=== PATIENT | female | born 1965 | race Caucasian/White ===

== ENCOUNTER → 2018-01-02 11:48 | Outpatient (CLI) | payer OTHER, SELFPAY ==
--- NOTE | 2018-01-02 | DI.MG.S_ITS ---
BILATERAL DIGITAL SCREENING MAMMOGRAM 3D/2D WITH CAD: 01/02/2018 CLINICAL: Routine screening. Comparison is made to exams dated: 12/29/2015 mammogram, 11/26/2012 mammogram, and 11/30/2008 mammogram - [facility]. The tissue of both breasts is predominantly fatty. Current study was also evaluated with a Computer Aided Detection (CAD) system. No significant masses, calcifications, or other findings are seen in either breast. There has been no significant interval change. IMPRESSION: NEGATIVE There is no mammographic evidence of malignancy. A 1 year screening mammogram is recommended. This exam was interpreted at Station ID: [id number]. NOTE: For mammograms, a report in lay terms will be sent to the patient. Approximately 15% of breast malignancies will not be visualized mammographically. In the management of a palpable breast mass, a negative mammogram must not discourage biopsy of a clinically suspicious lesion. Electronically Signed By: Anthony metz/wild:01/02/2018 15:58:09 letter sent: Normal Exam ACR BI-RADS Category 1: Negative [id number]
== END ==
PROVIDERS: PCP Physician Assistant; Visit Provider Physician Assistant
DX: Z12.31 Encounter for screening mammogram for malignant neoplasm of breast (principal)
CPT/HCPCS: 77063; 77067

== ENCOUNTER 2018-01-14 09:33 | Emergency (ER) | payer OTHER, SELFPAY ==
[2018-01-14 09:35] VITALS: BP 157/72; PULSE 84; RESP 20; TEMP 36.4; O2SAT 99; BMI 53.0
--- NOTE | 2018-01-14 09:58 | DI.RAD.S_ITS ---
PROCEDURE: XR CHEST 1V INDICATIONS: chest pain, palpitations TECHNIQUE: One view of the chest was acquired. COMPARISON: None. FINDINGS: Surgical changes and devices: None. Lungs and pleura: No pleural effusions or pneumothorax. Lungs are clear. Mediastinum: Mediastinal contours appear normal. Heart size is normal. Bones and chest wall: No suspicious bony lesions. Overlying soft tissues appear unremarkable. IMPRESSION: No acute cardiopulmonary abnormality Dictated by: Fidel Villa M.D. on 01/14/2018 at 10:24 Approved by: Fidel Villa M.D. on 01/14/2018 at 10:25
--- NOTE | 2018-01-14 10:05 | DI.CT.S_ITS ---
PROCEDURE: CT HEAD/BRAIN WO CON INDICATIONS: CONDE, blurry vision, leg numbness bilateral TECHNIQUE: Noncontrast 4.5 mm thick angled axial sections acquired from the foramen magnum to the vertex, with coronal and sagittal reformats. For radiation dose reduction, the following was used: automated exposure control, adjustment of mA and/or kV according to patient size. COMPARISON: None. FINDINGS: Image quality: Excellent. CSF spaces: Basal cisterns are patent. No extra-axial fluid collections. Ventricles are normal in size and shape. Brain: No midline shift. No intracranial masses or hemorrhage. Ordoñez-white matter interface is normal. Skull and face: Calvarium and visualized facial bones are intact, without suspicious lesions. Sinuses: Visualized sinuses and mastoids are clear. IMPRESSION: Normal CT brain scan Dictated by: Fidel Villa M.D. on 01/14/2018 at 10:25 Approved by: Fidel Villa M.D. on 01/14/2018 at 10:26
[2018-01-14 10:16] LABS: Add Manual Diff / Slide Review NO; Basophils Percent Auto 0.6 % (0-2); Eosinophils Percent Auto 1.5 % (2-4); Hematocrit 45.4 % (36-46); Hemoglobin 15.2 g/dL (12.0-16.0); Lymphocytes Percent Auto 32.9 % (25-40); Mean Corpuscular HGB Conc 33.5 % (30-36); Mean Corpuscular Volume 83.4 fL (80-100); Monocytes Percent Auto 5.9 % (3-14); Neutrophils Absolute Auto 4000 /uL (3000-5900); Neutrophils Percent Auto 59.1 % (50-75); Platelet Count 226 X10^3/uL (150-400); Red Blood Cell Count 5.44 X10^6/uL (4.0-5.2); Red Cell Distribution Width 13.5 % (11.6-14.8); White Blood Cell Count 6.7 X10^3/uL (4.5-11.0)
[2018-01-14 10:18] LABS: Alanine Aminotransferase 65 IU/L (9-52); Albumin 4.3 g/dL (3.5-5.0); Albumin Globulin Ratio 1.3 (1.0-2.8); Alkaline Phosphatase 65 U/L (38-126); Aspartate Aminotransferase 47 IU/L (14-36); BUN Creatinine Ratio 26.7 (6-22); Bilirubin Total 0.7 mg/dL (0.2-1.3); Blood Urea Nitrogen 16 mg/dL (7-17); Calcium 9.3 mg/dL (8.4-10.2); Carbon Dioxide 28 mmol/L (22-32); Chloride 101 mmol/L (98-107); Creatine Kinase 60 U/L (30-135); Estimated Glomerular Filt Rate > 60.0 mL/min (>60); Globulin 3.2 g/dL (1.7-4.1); Glucose 103 mg/dL (70-100); HEMOLYSIS 16 (0-50); Lipase 177 U/L (23-300); Sodium 139 mmol/L (137-145); Total Protein 7.5 g/dL (6.3-8.2)
[2018-01-14] MEDS: ASPIRIN 81 MG TAB 324 MG PO (10:24)
[2018-01-14] MEDS: SODIUM CHLORIDE 0.9% 1,000 ML 1000 ML IV ×2 (10:24→12:29)
[2018-01-14] MEDS: METOCLOPRAMIDE 10 MG/2 ML INJ IV (10:24)
[2018-01-14 10:29] VITALS: BP 156/81; PULSE 75; RESP 14; O2SAT 99
[2018-01-14 10:30] VITALS: BP 149/61; PULSE 68; RESP 12; O2SAT 94
[2018-01-14 10:32] LABS: Troponin I < 0.012 ng/mL (0.01-0.034)
[2018-01-14 10:44] LABS: Free T4, Direct Thyroxine 1.67 ng/dL (0.78-2.19)
[2018-01-14 11:00] VITALS: BP 134/75; PULSE 74; RESP 19; O2SAT 94
[2018-01-14] MEDS: DEXAMETHASONE 10 MG/ML VIAL IV (11:25)
[2018-01-14] MEDS: KETOROLAC 60 MG/2 ML VIAL 10 MG IV (11:25)
[2018-01-14] MEDS: ONDANSETRON 4 MG/2 ML INJ IV (11:30)
[2018-01-14 12:00] VITALS: BP 119/65; PULSE 69; O2SAT 97
[2018-01-14 13:22] VITALS: BP 145/75; PULSE 77; RESP 18; O2SAT 98
--- NOTE | 2018-01-14 20:02 | ED_ITS ---
HPI - Chest Pain General Chief Complaint: Chest Pain Stated Complaint: HEADACHE/HEART PROBLEMS Time Seen by Provider: 01/14/18 09:36 Source: patient and family Mode of arrival: ambulatory Limitations: no limitations History of Present Illness HPI narrative: Patient with history of migraines, hypothyroid, hypertension, hyperlipidemia presents to the emergency department today with a chief complaint of severe headache for the past few days along with diarrhea and occasional palpitations. She denies recent long distance travel, use of antibiotics, or exposure to ill persons. She denies chest pain or shortness of breath. She denies dizziness or lightheadedness. She states bright lights and loud noises make her head worse. She denies focal neurologic findings such as numbness, tingling or weakness MD complaint: other Onset (ago): day(s) Duration: intermittent Associated symptoms: nausea Related Data Home Medications Medication Instructions Recorded Confirmed aspirin 81 mg PO DAILY #0 04/02/11 01/14/18 naproxen sodium [Aleve] 220 mg PO Q8-12H PRN 01/14/18 01/14/18 Previous Rx's Medication Instructions Recorded ketorolac 0.5 % eye drops 1 drop EYE-LEFT QID #5 ml 12/19/17 levothyroxine 175 mcg tablet 175 mcg PO DAILY #45 tab 12/19/17 ondansetron [Zofran ODT] 4 mg PO Q6H PRN #14 tab 01/14/18 Allergies Allergy/AdvReac Type Severity Reaction Status Date / Time adhesive Allergy Severe HIVES Verified 01/14/18 09:46 bacitracin Allergy Severe Hives/ Rash Verified 01/14/18 09:46 latex Allergy Severe HIVES Verified 01/14/18 09:46 neomycin Allergy Severe Hives/ Rash Verified 01/14/18 09:46 polymyxin B Allergy Severe Hives/ Rash Verified 01/14/18 09:46 shellfish derived Allergy Mild ITCHING Verified 01/14/18 09:46 ALL OVER BODY Review of Systems Review of Systems All systems reviewed & are unremarkable except as noted in HPI and below Constitutional Denies chills, Denies fever(s), Reports headache(s), Denies lethargy and Denies weakness Eyes Denies change in vision, Denies eye discharge, Denies irritation and Denies loss of vision ENT Ears, Nose, Mouth, and Throat: Denies change in voice, Reports headache(s), Denies neck pain and Denies sore throat Cardiovascular Denies chest pain, Reports irregular heart rhythm, Denies lightheadedness, Denies palpitations, Denies dyspnea, Denies dyspnea on exertion and Denies orthopnea Respiratory Denies cough, Denies dyspnea, Denies dyspnea on exertion and Denies wheezing Gastrointestinal Gastrointestinal: Denies abdominal pain, Denies change in bowel habits, Reports diarrhea, Reports nausea and Denies vomiting Genitourinary Denies hematuria, Denies flank pain, Denies urinary incontinence and Denies urinary urgency Musculoskeletal Denies neck pain Integumentary/Breasts Denies pruritus, Denies erythema, Denies rash and Denies wounds Neurologic Denies confusion, Reports headache(s), Denies loss of vision and Denies weakness Psychiatric Denies anxiety, Denies confusion, Denies depression, Denies homicidal ideation and Denies suicidal ideation Endocrine Denies palpitations Hematologic/Lymphatic Denies easy bruising Allergic/Immunologic Denies wheezing PFSH Medical History Hypothyroidism (Chronic 03/02/11) Migraine headache (Acute) Social History Smoking Status: Former smoker Exam Narrative Exam Narrative: Pleasant 52-year-old female in mild distress Initial Vital Signs Initial Vital Signs: Vital Signs Temperature 97.6 F 01/14/18 09:35 Pulse Rate 84 01/14/18 09:35 Respiratory Rate 20 01/14/18 09:35 Blood Pressure 157/72 H 01/14/18 09:35 Pulse Oximetry 99 01/14/18 09:35 Const General: cooperative and well developed Nutritional Appearance: well nourished Orientation: alert, awake, oriented x3 and not confused [facility] Head: normocephalic and atraumatic Ears: external ears normal and TM's normal bilaterally Nose: external nose normal and No nasal discharge Face and sinus: sinuses nontender, face symmetric, no sinus tenderness and No dry mucous membranes Mouth: oral mucosae normal and moist mucous membranes Teeth and gingiva: dentition normal Throat: tonsils normal and uvula midline Neck Neck: normal visual inspection, trachea midline, No lymphadenopathy, No midline deformity and No JVD Lymphatic: No lymphedema Resp Effort & Inspection: normal respiratory effort, able to speak in complete sentences, no respiratory distress and no use of accessory muscles Auscultation: clear to auscultation bilaterally, no rales, no rhonchi and no wheezes Cardio Rate: regular rate Rhythm: regular rhythm Heart Sounds: no click, no gallops, no murmurs and no rubs Pulses: normal peripheral pulses GI Inspection: non-distended Palpation: soft, no hepatosplenomegaly, No guarding, No pulsatile mass and No tender Auscultation: normal bowel sounds Skin General: no rashes or lesions noted, No jaundice and No petechiae Neuro General: alert, oriented x3, gait normal and no focal motor deficits Speech: speech normal Other: NIH Stroke Scale 1a. LOC: Patient is alert and keenly responsive (0) 1b. LOC Questions: Patient answers both LOC questions accurately (0) 1c. LOC Commands: Patient performs both tasks correctly (0) 2. Best Gaze: Normal (0) 3. Visual: No visual loss (0) 4. Facial palsy: Normal symmetrical movements (0) 5. Motor arm: No drift (0) 6. Motor leg: No drift (0) 7. Limb ataxia: Absent (0) 8. Sensory: Normal (0) 9. Best language: No aphasia; normal (0) 10. Dysarthria: Normal (0) 11. Extinction and inattention: No abnormality (0) NIHSS: 0 Extrem General: full ROM, no clubbing, cyanosis or edema, no pedal edema and no calf tenderness Course Orders Ordered: Discontinued Medications Aspirin (Aspirin Chew) 324 mg PO NOW ONE Stop: 01/14/18 09:59 Last Admin: 01/14/18 10:24 Dose: 324 mg Dexamethasone (Decadron) 10 mg IV NOW ONE Stop: 01/14/18 11:21 Last Admin: 01/14/18 11:25 Dose: 10 mg Sodium Chloride (Normal Saline 0.9%) 1,000 mls @ 1,000 mls/hr IV BOLUS ONE Stop: 01/14/18 10:57 Last Infusion: 01/14/18 12:27 Dose: 0 mls/hr Admin: 01/14/18 10:24 Dose: 1,000 mls/hr Sodium Chloride (Normal Saline 0.9%) 1,000 mls @ 1,000 mls/hr IV BOLUS ONE Stop: 01/14/18 13:27 Last Infusion: 01/14/18 13:21 Dose: 0 mls/hr Admin: 01/14/18 12:29 Dose: 1,000 mls/hr Ketorolac Tromethamine (Toradol) 10 mg IV NOW ONE Stop: 01/14/18 11:21 Last Admin: 01/14/18 11:25 Dose: 10 mg Metoclopramide HCl (Reglan) 10 mg IV NOW ONE Stop: 01/14/18 09:59 Last Admin: 01/14/18 10:24 Dose: 10 mg Ondansetron HCl (Zofran) 4 mg IV NOW ONE Stop: 01/14/18 11:29 Last Admin: 01/14/18 11:30 Dose: 4 mg Reevaluation(s) Reevaluation #1: Patient has near complete resolution of symptoms after above- stated therapies Vital Signs - 8 hr 01/14/18 12:00 01/14/18 13:22 Pulse Rate 69 77 Respiratory Rate 18 Blood Pressure 145/75 H Blood Pressure [Right Arm] 119/65 Pulse Oximetry 97 98 MDM - Chest Pain Lab Data Result diagrams: 01/14/18 09:41 01/14/18 09:41 Lab Results 01/14/18 01/14/18 01/14/18 Range/Units 09:41 09:41 09:41 WBC 6.7 (4.5-11.0) X10^3/uL RBC 5.44 H (4.0-5.2) X10^6/uL Hgb 15.2 (12.0-16.0) g/dL Hct 45.4 (36-46) % MCV 83.4 (80-100) fL MCH 28.0 (26-34) PG MCHC 33.5 (30-36) % RDW 13.5 (11.6-14.8) % Plt Count 226 (150-400) X10^3/uL Neut % (Auto) 59.1 (50-75) % Lymph % (Auto) 32.9 (25-40) % [place] % (Auto) 5.9 (3-14) % Eos % (Auto) 1.5 L (2-4) % Baso % (Auto) 0.6 (0-2) % Neut # (Auto) 4000 (9977-1161) /uL Sodium 139 (137-145) mmol/L Potassium 4.0 (3.4-5.1) mmol/L Chloride 101 (98-107) mmol/L Carbon Dioxide 28 (22-32) mmol/L BUN 16 (7-17) mg/dL Creatinine 0.60 (0.52-1.04) mg/dL Estimated GFR > 60.0 (>60) mL/min BUN/Creatinine Ratio 26.7 H (6-22) Glucose 103 H (70-100) mg/dL Calcium 9.3 (8.4-10.2) mg/dL Total Bilirubin 0.7 (0.2-1.3) mg/dL AST 47 H (14-36) IU/L ALT 65 H (9-52) IU/L Alkaline Phosphatase 65 (38-126) U/L Total Creatine Kinase 60 (30-135) U/L Troponin I < 0.012 (0.01-0.034) ng/mL Total Protein 7.5 (6.3-8.2) g/dL Albumin 4.3 (3.5-5.0) g/dL Globulin 3.2 (1.7-4.1) g/dL Albumin/Globulin Ratio 1.3 (1.0-2.8) Lipase 177 (23-300) U/L TSH 0.40 L (0.47-4.68) uIU/mL Free T4 1.67 (0.78-2.19) ng/dL Discharge Plan Departure Patient Disposition: Home, Self-Care Clinical Impression: Migraine Discharge Date/Time: 01/14/18 13:22 Interventions: ED Discharge Assessment Last Done: 01/14/18 13:22 Instructions: Migraine -- Adult, Diarrhea Activity Restrictions/Additional Instructions: 1. Drink plenty of fluids with frequent small sips. 2. For the next 24 hours a clear liquid diet is advised. After that please employ a brat diet which would include bananas, rice, apples, toast. 3. Please take medications as directed. 4. Please follow-up with your doctor in the next 1-2 days. Call the office for an appointment. 5. Please return to the emergency Department for any worsening or persistent symptoms, such as increasing pain or fever. Prescriptions: New ondansetron [Zofran ODT] 4 mg tablet,disintegrating 4 mg PO Q6H PRN (Reason: nausea and vomiting) Qty: 14 RF: 0 No Action levothyroxine [Synthroid] 175 mcg tablet 175 mcg PO DAILY Qty: 45 RF: 1 ketorolac [Acular] 0.5 % drops 1 drop EYE-LEFT QID Qty: 5 RF: 0 aspirin 81 mg Tablet,Delayed Release (Dr/Ec) 81 mg PO DAILY Qty: 0 RF: 0 naproxen sodium [Aleve] 220 mg Capsule 220 mg PO Q8-12H PRN (Reason: Headache) RF: 0 Referrals: Мария Tomas PA-C [Primary Care Provider] -
== END 2018-01-14 13:22 | disposition home or self-care (01) ==
PROVIDERS: Emergency Provider Emergency Medicine; PCP Physician Assistant
DX: G43.909 Migraine, unspecified, not intractable, without status migrainosus (principal)
CPT/HCPCS: 36591; 70450; 71045; 80053; 81003; 82550; 82553; 83690; 84439; 84443; 84484; 85025; 93005; 96361; 96374; 96375; 99285; J1100; J1885; J2405; J2765

== ENCOUNTER → 2018-01-23 10:37 | Outpatient (CLI) | payer OTHER, SELFPAY ==
[2018-01-23 12:03] LABS: Thyroid Stimulating Hormone 0.41 uIU/mL (0.47-4.68)
== END ==
PROVIDERS: PCP Physician Assistant; Visit Provider Physician Assistant
DX: E03.9 Hypothyroidism, unspecified (principal)
CPT/HCPCS: 36415; 84443

== ENCOUNTER → 2018-04-09 08:05 | Outpatient (CLI) | payer OTHER, SELFPAY ==
[2018-04-09 09:46] LABS: Thyroid Stimulating Hormone 0.94 uIU/mL (0.47-4.68)
== END ==
PROVIDERS: PCP Physician Assistant; Visit Provider Physician Assistant
DX: E03.9 Hypothyroidism, unspecified (principal)
CPT/HCPCS: 36415; 84443

== ENCOUNTER → 2018-08-15 11:26 | Outpatient (CLI) | payer OTHER, SELFPAY | PROVIDERS: PCP Physician Assistant; Visit Provider Physician Assistant | DX: R05 Cough (principal); R50.9 Fever, unspecified; R52 Pain, unspecified | CPT/HCPCS: 87400 ==

== ENCOUNTER 2018-08-18 11:42 | Emergency (ER) | payer OTHER, SELFPAY ==
[2018-08-18 11:55] VITALS: BP 115/69; PULSE 72; RESP 23; TEMP 36.9; O2SAT 98; BMI 52.8
--- NOTE | 2018-08-18 12:31 | DI.RAD.S_ITS ---
PROCEDURE: XR CHEST 2V INDICATIONS: cough, influenza pos TECHNIQUE: 2 views of the chest were acquired. COMPARISON: [facility], CR, XR CHEST 1V, 01/14/2018, 9:52. FINDINGS: Surgical changes and devices: None. Lungs and pleura: No pleural effusions or pneumothorax. Mildly increased bronchovascular markings in bilateral hilar region is seen. No definite focal infiltrate. Mediastinum: Mediastinal contours are normal. Heart size is normal. Bones and chest wall: No suspicious bony abnormalities. Soft tissues appear unremarkable. IMPRESSION: Finding may represent mild reactive airway disease such as bronchitis or viral pneumonia. No definite focal infiltrate. Dictated by: Wes Villalba M.D. on 08/18/2018 at 12:46 Approved by: Wes Villalba M.D. on 08/18/2018 at 12:51
--- NOTE | 2018-08-18 12:34 | ED.URI ---
HPI - URI/Sore Throat General Chief Complaint: Shortness of Breath/Dyspnea Stated Complaint: Flu Time Seen by Provider: 08/18/18 12:17 Source: patient Mode of arrival: ambulatory Limitations: no limitations History of Present Illness HPI Narrative: This is a 53-year-old female who comes to the emergency department with complaint of arms and legs feeling sort of tingly all over, this is about 30 min prior to arrival. Patient states she was standing up in her bathroom when she felt shoulder cold in her arms and legs and a little bit tingly. Patient denies any other symptoms in her extremities, no weakness. No numbness. Patient has recently had upper respiratory congestion as well as a cough that is had a very small amount sputum she was diagnosed by her physician as having influenza and started on Tamiflu. After about 5 days she was feeling better she flew to [place] and then returned. Since then she has been feeling worse. She has continued to have cough. No fevers that she is noting today. No shortness of breath, she denies any chest pain or pressure. She states she feels a little chronically in her chest like something is crackling. Patient has not had any vomiting but felt a little nauseated today. She denies any other GI or urinary symptoms. Patient takes medication for thyroid denies any other medical history. Patient has not had anything to eat since yesterday evening. She had very minimal water today. Related Data Home Medications Medication Instructions Recorded Confirmed naproxen sodium [Aleve] 220 mg PO Q8-12H PRN 01/14/18 08/15/18 Previous Rx's Medication Instructions Recorded levothyroxine 175 mcg tablet 175 mcg PO DAILY #90 tab 04/09/18 doxycycline monohydrate 100 mg 100 mg PO BID #20 tab 08/15/18 tablet ondansetron HCl 8 mg tablet 8 mg PO TID PRN #20 tab 08/15/18 oseltamivir 75 mg capsule 75 mg PO BID 5 Days #10 cap 08/16/18 albuterol sulfate 2 puff INHALATION Q4H PRN #18 gram 08/18/18 Allergies Allergy/AdvReac Type Severity Reaction Status Date / Time adhesive Allergy Severe HIVES Verified 08/15/18 11:08 bacitracin Allergy Severe Hives/ Rash Verified 08/15/18 11:08 latex Allergy Severe HIVES Verified 08/15/18 11:08 neomycin Allergy Severe Hives/ Rash Verified 08/15/18 11:08 polymyxin B Allergy Severe Hives/ Rash Verified 08/15/18 11:08 shellfish derived Allergy Mild ITCHING Verified 08/15/18 11:08 ALL OVER BODY Penicillins Allergy Unknown I was Verified 08/15/18 11:08 told that. I was a child when it happened. Sulfa (Sulfonamide Allergy Unknown makes me Verified 08/15/18 11:08 Antibiotics) more sick. I can't remember how bad. Review of Systems Review of Systems ROS Unobtainable: All systems reviewed & are unremarkable except as noted in HPI and below Constitutional Reports chills, Denies fever(s), Reports malaise and Denies weakness Cardiovascular Denies chest pain, Denies dyspnea, Denies dyspnea on exertion and Denies orthopnea Respiratory Denies change in phlegm color, Reports chest congestion, Reports cough, Denies hemoptysis, Denies excessive phlegm production, Denies pain on inspiration, Denies pain with cough, Denies dyspnea, Denies dyspnea on exertion and Denies wheezing Gastrointestinal Gastrointestinal: Denies abdominal pain, Denies change in bowel habits, Denies diarrhea, Reports nausea and Denies vomiting Genitourinary Denies urinary frequency, Denies dysuria and Denies urinary urgency Musculoskeletal Reports tingling Integumentary/Breasts Denies rash Neurologic Denies sensory deficit, Reports tingling and Denies weakness Allergic/Immunologic Denies wheezing [facility] Medical History Hypothyroidism (Chronic 03/02/11) Migraine headache (Acute) Hyperlipemia (Chronic) Fractures (Resolved) Low back pain (Resolved) Pneumonia (Resolved) Scarlet fever (Resolved) Surgical History No history of previous surgery (Resolved) Social History Smoking Status: Former smoker Tobacco: How many years used: 8 second hand exposure: No alcohol intake: current (Tequila occasionally ) substance use type: marijuana Exam Narrative Exam Narrative: GEN: well nourished, well appearing female, alert and oriented x 3, patient appears to be in mild distress. HEENT: Atraumatic, pupils are equal round reactive to light, extraocular movements are intact, nares mild clear rhinorrhea, TMs are clear with no fluid, there is no conjunctival pallor. Throat is clear without any exudates, erythema, tonsillar enlargement or uvular deviation HEART: Regular rate and rhythm without murmur, clicks, rubs. LUNGS:Lungs clear to auscultation, mild wheeze on right upper ,chest, no rales, crackles, chest moves symmetrically, no tachypnea, no accessory muscle use. Patient speaks in full sentences. He is able to stand, get off the going to get back on without any issue. ABD:bowel sounds normal, soft, non-tender, no guarding, rebound, rigidity, no masses noted, no hepatosplenomegaly MSCL: Non-tender, no muscle atrophy, muscles strength 5/5 upper and lower extremities, full range of motion, normal gait NEURO:CN 2-12 intact, sensation normal Initial Vital Signs Initial Vital Signs: Vital Signs Temperature 98.4 F 08/18/18 11:55 Pulse Rate 72 08/18/18 11:55 Respiratory Rate 23 08/18/18 11:55 Blood Pressure 115/69 08/18/18 11:55 Pulse Oximetry 98 08/18/18 11:55 Course Orders Ordered: ED Orders 08/18/18 12:31 XR chest 2V Stat Discontinued Medications Albuterol/Ipratropium (Duoneb) 3 ml INH NOW ONE Stop: 08/18/18 12:32 Last Admin: 08/18/18 12:42 Dose: 3 ml Vital Signs - 8 hr 08/18/18 11:55 08/18/18 13:09 Temperature 98.4 F Pulse Rate 72 82 Respiratory Rate 23 20 Blood Pressure 115/69 Blood Pressure [Right Arm] 150/109 H Pulse Oximetry 98 98 MDM - URI/Sore Throat Lab Data Attestation: I reviewed the patient's lab results. Point of Care Testing Glucose POC 90 Imaging Data Chest x-ray: Radiologist's impression: [address] [address] XRay Report Signed Patient: Hawa Quinn MR#: [id number] : 1965 Acct:[id number] Age/Sex: 53 / F Date of Service: 08/18/18 Loc: ED Accession Number: [id number] Procedure: XR chest 2V Ordering Provider: Triny Mendez D.O. PROCEDURE: XR CHEST 2V INDICATIONS: cough, influenza pos TECHNIQUE: 2 views of the chest were acquired. COMPARISON: [facility], CR, XR CHEST 1V, 01/14/2018, 9:52. FINDINGS: Surgical changes and devices: None. Lungs and pleura: No pleural effusions or pneumothorax. Mildly increased bronchovascular markings in bilateral hilar region is seen. No definite focal infiltrate. Mediastinum: Mediastinal contours are normal. Heart size is normal. Bones and chest wall: No suspicious bony abnormalities. Soft tissues appear unremarkable. IMPRESSION: Finding may represent mild reactive airway disease such as bronchitis or viral pneumonia. No definite focal infiltrate. Dictated by: Wes Villalba M.D. on 08/18/2018 at 12:46 Approved by: Wes Villalba M.D. on 08/18/2018 at 12:51 MDM Narrative Medical decision making narrative: Patient was started on tamiflu, doxycycline and zofran by her PCP. She had positive influenza swab, she has not had a chest xray. Patient ambulated to xray without issue. Recheck after neb. Patient is feeling a little better. wheeze improved. Patient blood sugar is 90. Patient's vitals are stable, she is not having any other symptoms and feeling little bit improved. Plan to DC home without any other additional workup at this time. We discussed that she should continue her Tamiflu and can continue the doxycycline as well. She has Zofran with her as well. We did discuss using albuterol inhaler she feels short of breath or wheezy. Patient discussed that she should follow up with primary care for recheck. Discharge Plan Departure Patient Disposition: Home Clinical Impression: Influenza A Discharge Date/Time: 08/18/18 14:03 Interventions: ED Discharge Assessment Last Done: 08/18/18 14:03 Instructions: DI for Influenza -- Adult Activity Restrictions/Additional Instructions: Follow up with primary care for recheck. Continue your medications as prescribed. You may use albuterol 1-2 puffs every 4 hours as needed for shortness of breath/wheezing. Your prescription was sent to [facility] in [place]. Make sure you are drinking plenty of fluids. Return to ER if worsening symptoms, new shortness of breath, chest pain, passing out, persistent vomiting/diarrhea or other new or concerning symptoms. Prescriptions: New albuterol sulfate 90 mcg/actuation HFA aerosol inhaler 2 puff INHALATION Q4H PRN (Reason: shortness of breath or wheezing) Qty: 18 RF: 0 No Action ondansetron HCl 8 mg tablet 8 mg PO TID PRN (Reason: nausea and vomiting) Qty: 20 RF: 0 doxycycline monohydrate 100 mg tablet 100 mg PO BID Qty: 20 RF: 0 levothyroxine [Synthroid] 175 mcg tablet 175 mcg PO DAILY Qty: 90 RF: 1 oseltamivir [Tamiflu] 75 mg capsule 75 mg PO BID 5 Days Qty: 10 RF: 0 naproxen sodium [Aleve] 220 mg Capsule 220 mg PO Q8-12H PRN (Reason: Headache) RF: 0
--- NOTE | 2018-08-18 12:39 | ED_ITS ---
HPI - URI/Sore Throat General Chief Complaint: Shortness of Breath/Dyspnea Stated Complaint: Flu Time Seen by Provider: 08/18/18 12:17 Source: patient Mode of arrival: ambulatory Limitations: no limitations History of Present Illness HPI Narrative: This is a 53-year-old female who comes to the emergency department with complaint of arms and legs feeling sort of tingly all over, this is about 30 min prior to arrival. Patient states she was standing up in her bathroom when she felt shoulder cold in her arms and legs and a little bit tingly. Patient denies any other symptoms in her extremities, no weakness. No numbness. Patient has recently had upper respiratory congestion as well as a cough that is had a very small amount sputum she was diagnosed by her physician as having influenza and started on Tamiflu. After about 5 days she was feeling better she flew to [place] and then returned. Since then she has been feeling worse. She has continued to have cough. No fevers that she is noting today. No shortness of breath, she denies any chest pain or pressure. She states she feels a little chronically in her chest like something is crackling. Patient has not had any vomiting but felt a little nauseated today. She denies any other GI or urinary symptoms. Patient takes medication for thyroid denies any other medical history. Patient has not had anything to eat since yesterday evening. She had very minimal water today. Related Data Home Medications Medication Instructions Recorded Confirmed naproxen sodium [Aleve] 220 mg PO Q8-12H PRN 01/14/18 08/15/18 Previous Rx's Medication Instructions Recorded levothyroxine 175 mcg tablet 175 mcg PO DAILY #90 tab 04/09/18 doxycycline monohydrate 100 mg 100 mg PO BID #20 tab 08/15/18 tablet ondansetron HCl 8 mg tablet 8 mg PO TID PRN #20 tab 08/15/18 oseltamivir 75 mg capsule 75 mg PO BID 5 Days #10 cap 08/16/18 albuterol sulfate 2 puff INHALATION Q4H PRN #18 gram 08/18/18 Allergies Allergy/AdvReac Type Severity Reaction Status Date / Time adhesive Allergy Severe HIVES Verified 08/15/18 11:08 bacitracin Allergy Severe Hives/ Rash Verified 08/15/18 11:08 latex Allergy Severe HIVES Verified 08/15/18 11:08 neomycin Allergy Severe Hives/ Rash Verified 08/15/18 11:08 polymyxin B Allergy Severe Hives/ Rash Verified 08/15/18 11:08 shellfish derived Allergy Mild ITCHING Verified 08/15/18 11:08 ALL OVER BODY Penicillins Allergy Unknown I was Verified 08/15/18 11:08 told that. I was a child when it happened. Sulfa (Sulfonamide Allergy Unknown makes me Verified 08/15/18 11:08 Antibiotics) more sick. I can't remember how bad. Review of Systems Review of Systems ROS Unobtainable: All systems reviewed & are unremarkable except as noted in HPI and below Constitutional Reports chills, Denies fever(s), Reports malaise and Denies weakness Cardiovascular Denies chest pain, Denies dyspnea, Denies dyspnea on exertion and Denies orthopnea Respiratory Denies change in phlegm color, Reports chest congestion, Reports cough, Denies hemoptysis, Denies excessive phlegm production, Denies pain on inspiration, Denies pain with cough, Denies dyspnea, Denies dyspnea on exertion and Denies wheezing Gastrointestinal Gastrointestinal: Denies abdominal pain, Denies change in bowel habits, Denies diarrhea, Reports nausea and Denies vomiting Genitourinary Denies urinary frequency, Denies dysuria and Denies urinary urgency Musculoskeletal Reports tingling Integumentary/Breasts Denies rash Neurologic Denies sensory deficit, Reports tingling and Denies weakness Allergic/Immunologic Denies wheezing [facility] Medical History Hypothyroidism (Chronic 03/02/11) Migraine headache (Acute) Hyperlipemia (Chronic) Fractures (Resolved) Low back pain (Resolved) Pneumonia (Resolved) Scarlet fever (Resolved) Surgical History No history of previous surgery (Resolved) Social History Smoking Status: Former smoker Tobacco: How many years used: 8 second hand exposure: No alcohol intake: current (Tequila occasionally ) substance use type: marijuana Exam Narrative Exam Narrative: GEN: well nourished, well appearing female, alert and oriented x 3, patient appears to be in mild distress. HEENT: Atraumatic, pupils are equal round reactive to light, extraocular movements are intact, nares mild clear rhinorrhea, TMs are clear with no fluid, there is no conjunctival pallor. Throat is clear without any exudates, erythema , tonsillar enlargement or uvular deviation HEART: Regular rate and rhythm without murmur, clicks, rubs. LUNGS:Lungs clear to auscultation, mild wheeze on right upper ,chest, no rales, crackles, chest moves symmetrically, no tachypnea, no accessory muscle use. Patient speaks in full sentences. He is able to stand, get off the going to get back on without any issue. ABD:bowel sounds normal, soft, non-tender, no guarding, rebound, rigidity, no masses noted, no hepatosplenomegaly MSCL: Non-tender, no muscle atrophy, muscles strength 5/5 upper and lower extremities, full range of motion, normal gait NEURO:CN 2-12 intact, sensation normal Initial Vital Signs Initial Vital Signs: Vital Signs Temperature 98.4 F 08/18/18 11:55 Pulse Rate 72 08/18/18 11:55 Respiratory Rate 23 08/18/18 11:55 Blood Pressure 115/69 08/18/18 11:55 Pulse Oximetry 98 08/18/18 11:55 Course Orders Ordered: ED Orders 08/18/18 12:31 XR chest 2V Stat Discontinued Medications Albuterol/Ipratropium (Duoneb) 3 ml INH NOW ONE Stop: 08/18/18 12:32 Last Admin: 08/18/18 12:42 Dose: 3 ml Vital Signs - 8 hr 08/18/18 11:55 08/18/18 13:09 Temperature 98.4 F Pulse Rate 72 82 Respiratory Rate 23 20 Blood Pressure 115/69 Blood Pressure [Right Arm] 150/109 H Pulse Oximetry 98 98 MDM - URI/Sore Throat Lab Data Attestation: I reviewed the patient's lab results. Point of Care Testing Glucose POC 90 Imaging Data Chest x-ray: Radiologist's impression: [address] [address] XRay Report Signed Patient: Hawa Quinn MR#: [id number] : 1965 Acct:[id number] Age/Sex: 53 / F Date of Service: 08/18/18 Loc: ED Accession Number: [id number] Procedure: XR chest 2V Ordering Provider: Triny Mendez D.O. PROCEDURE: XR CHEST 2V INDICATIONS: cough, influenza pos TECHNIQUE: 2 views of the chest were acquired. COMPARISON: [facility], CR, XR CHEST 1V, 01/14/2018, 9:52. FINDINGS: Surgical changes and devices: None. Lungs and pleura: No pleural effusions or pneumothorax. Mildly increased bronchovascular markings in bilateral hilar region is seen. No definite focal infiltrate. Mediastinum: Mediastinal contours are normal. Heart size is normal. Bones and chest wall: No suspicious bony abnormalities. Soft tissues appear unremarkable. IMPRESSION: Finding may represent mild reactive airway disease such as bronchitis or viral pneumonia. No definite focal infiltrate. Dictated by: Wes Villalba M.D. on 08/18/2018 at 12:46 Approved by: Wes Villalba M.D. on 08/18/2018 at 12:51 MDM Narrative Medical decision making narrative: Patient was started on tamiflu, doxycycline and zofran by her PCP. She had positive influenza swab, she has not had a chest xray. Patient ambulated to xray without issue. Recheck after neb. Patient is feeling a little better. wheeze improved. Patient blood sugar is 90. Patient's vitals are stable, she is not having any other symptoms and feeling little bit improved. Plan to DC home without any other additional workup at this time. We discussed that she should continue her Tamiflu and can continue the doxycycline as well. She has Zofran with her as well. We did discuss using albuterol inhaler she feels short of breath or wheezy. Patient discussed that she should follow up with primary care for recheck. Discharge Plan Departure Patient Disposition: Home Clinical Impression: Influenza A Discharge Date/Time: 08/18/18 14:03 Interventions: ED Discharge Assessment Last Done: 08/18/18 14:03 Instructions: DI for Influenza -- Adult Activity Restrictions/Additional Instructions: Follow up with primary care for recheck. Continue your medications as prescribed. You may use albuterol 1-2 puffs every 4 hours as needed for shortness of breath/wheezing. Your prescription was sent to [facility] in [place]. Make sure you are drinking plenty of fluids. Return to ER if worsening symptoms, new shortness of breath, chest pain, passing out, persistent vomiting/diarrhea or other new or concerning symptoms. Prescriptions: New albuterol sulfate 90 mcg/actuation HFA aerosol inhaler 2 puff INHALATION Q4H PRN (Reason: shortness of breath or wheezing) Qty: 18 RF: 0 No Action ondansetron HCl 8 mg tablet 8 mg PO TID PRN (Reason: nausea and vomiting) Qty: 20 RF: 0 doxycycline monohydrate 100 mg tablet 100 mg PO BID Qty: 20 RF: 0 levothyroxine [Synthroid] 175 mcg tablet 175 mcg PO DAILY Qty: 90 RF: 1 oseltamivir [Tamiflu] 75 mg capsule 75 mg PO BID 5 Days Qty: 10 RF: 0 naproxen sodium [Aleve] 220 mg Capsule 220 mg PO Q8-12H PRN (Reason: Headache) RF: 0
[2018-08-18] MEDS: ALBUTEROL/IPRATROPIUM 3 ML AMPUL INH (12:42)
[2018-08-18 13:09] VITALS: BP 150/109; PULSE 82; RESP 20; O2SAT 98
== END 2018-08-18 14:03 | disposition home or self-care (01) ==
PROVIDERS: Emergency Provider Emergency Medicine; PCP Physician Assistant
DX: J11.1 Influenza due to unidentified influenza virus with other respiratory manifestations (principal)
CPT/HCPCS: 71046; 82962; 99282; 99283

== ENCOUNTER → 2018-12-04 09:18 | Outpatient (CLI) | payer OTHER, SELFPAY ==
[2018-12-04 11:02] LABS: Alanine Aminotransferase 42 IU/L (9-52); Albumin 4.1 g/dL (3.5-5.0); Albumin Globulin Ratio 1.4 (1.0-2.8); Alkaline Phosphatase 61 U/L (38-126); Aspartate Aminotransferase 23 IU/L (14-36); Bilirubin Total 0.5 mg/dL (0.2-1.3); Blood Urea Nitrogen 18 mg/dL (7-17); Calcium 9.1 mg/dL (8.4-10.2); Carbon Dioxide 28 mmol/L (22-32); Chloride 103 mmol/L (98-107); Cholesterol 198 mg/dL (140-199); Estimated Glomerular Filt Rate > 60.0 mL/min (>60); Globulin 2.9 g/dL (1.7-4.1); Glucose 111 mg/dL (70-100); HDL Cholesterol 41 mg/dL (40-60); HEMOLYSIS < 15 (0-50); LDL Cholesterol Calculated 132 mg/dL (<100); Potassium 4.2 mmol/L (3.4-5.1); Sodium 139 mmol/L (137-145); Triglycerides 127 mg/dL (35-150)
[2018-12-04 11:28] LABS: Thyroid Stimulating Hormone 0.81 uIU/mL (0.47-4.68)
== END ==
PROVIDERS: PCP Physician Assistant; Visit Provider Physician Assistant
DX: E03.9 Hypothyroidism, unspecified (principal); E78.5 Hyperlipidemia, unspecified; R74.8 Abnormal levels of other serum enzymes
CPT/HCPCS: 36415; 80053; 80061; 84443

== ENCOUNTER → 2019-07-17 09:36 | Outpatient (CLI) | payer OTHER, SELFPAY ==
--- NOTE | 2019-07-17 09:37 | DI.MG.S_ITS ---
BILATERAL DIGITAL SCREENING MAMMOGRAM 3D/2D WITH CAD: 07/17/2019 CLINICAL: Routine screening. Comparison is made to exams dated: 01/02/2018 mammogram, 12/29/2015 mammogram, and 11/26/2012 mammogram - [facility]. The tissue of both breasts is predominantly fatty. Current study was also evaluated with a Computer Aided Detection (CAD) system. No significant masses, calcifications, or other findings are seen in either breast. There has been no significant interval change. IMPRESSION: NEGATIVE There is no mammographic evidence of malignancy. A 1 year screening mammogram is recommended. This exam was interpreted at Station ID: [id number]. NOTE: For mammograms, a report in lay terms will be sent to the patient. Approximately 15% of breast malignancies will not be visualized mammographically. In the management of a palpable breast mass, a negative mammogram must not discourage biopsy of a clinically suspicious lesion. Electronically Signed By: Norma mendoza/wild:07/17/2019 12:03:18 letter sent: Normal Exam ACR BI-RADS Category 1: Negative [id number]
== END ==
PROVIDERS: PCP Physician Assistant; Visit Provider Physician Assistant
DX: Z12.31 Encounter for screening mammogram for malignant neoplasm of breast (principal)
CPT/HCPCS: 77063; 77067

== ENCOUNTER → 2019-09-17 09:13 | Outpatient (CLI) | payer OTHER, SELFPAY ==
[2019-09-17 11:07] LABS: Thyroid Stimulating Hormone 0.84 uIU/mL (0.47-4.68)
== END ==
PROVIDERS: PCP Family Medicine; Referring Provider Family Medicine; Visit Provider Family Medicine
DX: E03.9 Hypothyroidism, unspecified (principal)
CPT/HCPCS: 36415; 84443

== ENCOUNTER → 2020-03-29 16:38 | Outpatient (CLI) | payer OTHER, SELFPAY ==
[2020-03-29 18:13] LABS: Alanine Aminotransferase 59 IU/L (<35); Albumin 4.4 g/dL (3.5-5.0); Albumin Globulin Ratio 1.6 (1.0-2.8); Alkaline Phosphatase 68 U/L (38-126); Aspartate Aminotransferase 35 IU/L (14-36); BUN Creatinine Ratio 22.1 (6-22); Bilirubin Total 0.5 mg/dL (0.2-1.3); Blood Urea Nitrogen 17 mg/dL (7-17); Carbon Dioxide 26 mmol/L (22-32); Chloride 104 mmol/L (98-107); Estimated Glomerular Filt Rate > 60.0 mL/min (>60); Globulin 2.8 g/dL (1.7-4.1); Glucose 148 mg/dL (70-100); HEMOLYSIS < 15 (0-50); Potassium 4.2 mmol/L (3.4-5.1); Sodium 137 mmol/L (137-145); Total Protein 7.2 g/dL (6.3-8.2)
[2020-03-29 18:28] LABS: Free T4, Direct Thyroxine 1.12 ng/dL (0.78-2.19)
== END ==
PROVIDERS: PCP Family Medicine; Referring Provider Family Medicine; Visit Provider Family Medicine
DX: E03.9 Hypothyroidism, unspecified (principal); J30.2 Other seasonal allergic rhinitis
CPT/HCPCS: 36415; 80053; 84439; 84443

== ENCOUNTER → 2021-06-07 11:27 | Outpatient (CLI) | payer OTHER, SELFPAY ==
[2021-06-07 14:09] LABS: Hemoglobin A1C% w Est Avg Glu 13.9 % (4.0-6.0)
[2021-06-07 14:11] LABS: Alanine Aminotransferase 21 IU/L (<35); Albumin 3.9 g/dL (3.5-5.0); Albumin Globulin Ratio 1.8 (1.0-2.8); Alkaline Phosphatase 73 U/L (38-126); Aspartate Aminotransferase 23 IU/L (14-36); BUN Creatinine Ratio 27.8 (6-22); Bilirubin Total 0.5 mg/dL (0.2-1.3); Blood Urea Nitrogen 10 mg/dL (7-17); Calcium 9.1 mg/dL (8.4-10.2); Carbon Dioxide 27 mmol/L (22-32); Chloride 99 mmol/L (98-107); Cholesterol 193 mg/dL (140-199); Estimated Glomerular Filt Rate > 60.0 mL/min (>60); Globulin 2.2 g/dL (1.7-4.1); Glucose 309 mg/dL (70-100); HDL Cholesterol 48 mg/dL (40-60); HEMOLYSIS < 15 (0-50); LDL Cholesterol Calculated 119 mg/dL (<100); Potassium 4.3 mmol/L (3.4-5.1); Sodium 136 mmol/L (137-145); Total Protein 6.1 g/dL (6.3-8.2); Triglycerides 130 mg/dL (35-150)
[2021-06-07 14:40] LABS: TSH w/ Reflex to FT4 0.04 uIU/mL (0.47-4.68)
== END ==
PROVIDERS: PCP Family Medicine; Referring Provider Family Medicine; Visit Provider Family Medicine
DX: R73.9 Hyperglycemia, unspecified (principal); E03.9 Hypothyroidism, unspecified; E78.5 Hyperlipidemia, unspecified
CPT/HCPCS: 36415; 80053; 80061; 83036; 84439; 84443

== ENCOUNTER 2021-07-12 12:30 | Emergency (ER) | payer OTHER, SELFPAY ==
[2021-07-12] VITALS (22 sets, daily range): BP systolic 120–193; BP diastolic 69–87; PULSE 40–92; RESP 0–30; TEMP 36.3; O2SAT 94–99; BMI 37.2
--- NOTE | 2021-07-12 12:42 | DI.RAD.S_ITS ---
PROCEDURE: XR CHEST 1V INDICATIONS: chest pain TECHNIQUE: One view of the chest was acquired. COMPARISON: [facility], CR, XR CHEST 2V, 08/18/2018, 12:38. FINDINGS: Surgical changes and devices: None. Lungs and pleura: Lungs are clear. No pleural effusions or pneumothorax. Mediastinum: Mediastinal contours appear normal. Heart size is normal. Bones and chest wall: No suspicious bony lesions. Overlying soft tissues appear unremarkable. IMPRESSION: No evidence acute pulmonary process. Dictated by: Sandeep Lujan M.D. on 07/12/2021 at 13:50 Approved by: Sandeep Lujan M.D. on 07/12/2021 at 13:51
[2021-07-12 13:13] LABS: Add Manual Diff / Slide Review NO; Basophils Absolute Auto 100 /uL (0-100); Basophils Percent Auto 0.7 % (0-2); Eosinophils Absolute Auto 100 /uL (0-450); Eosinophils Percent Auto 0.9 % (2-4); Hematocrit 43.8 % (36-46); Hemoglobin 14.6 g/dL (12.0-16.0); Lymphocytes Absolute Auto 2300 /uL (1100-4500); Lymphocytes Percent Auto 28.3 % (25-40); Mean Corpuscular HGB Conc 33.4 % (30-36); Mean Corpuscular Hemoglobin 28.4 PG (26-34); Monocytes Absolute Auto 500 /uL (0-900); Monocytes Percent Auto 6.1 % (3-14); Neutrophils Absolute Auto 5200 /uL (1500-7000); Platelet Count 243 X10^3/uL (150-400); Red Blood Cell Count 5.15 X10^6/uL (4.0-5.2); Red Cell Distribution Width 13.5 % (11.6-14.8); White Blood Cell Count 8.1 X10^3/uL (4.5-11.0)
[2021-07-12 13:16] LABS: INR 1.1 (0.9-1.3); Prothrombin Time 11.7 SECONDS (10.1-12.7)
[2021-07-12 13:19] LABS: PTT Partial Thromboplastin Tim 59 SECONDS (26.4-36.2)
[2021-07-12 13:21] LABS: Alanine Aminotransferase 20 IU/L (<35); Albumin 4.5 g/dL (3.5-5.0); Albumin Globulin Ratio 1.6 (1.0-2.8); Alkaline Phosphatase 49 U/L (38-126); Aspartate Aminotransferase 28 IU/L (14-36); BUN Creatinine Ratio 41.3 (6-22); Bilirubin Total 0.6 mg/dL (0.2-1.3); Blood Urea Nitrogen 19 mg/dL (7-17); Calcium 9.4 mg/dL (8.4-10.2); Carbon Dioxide 28 mmol/L (22-32); Chloride 104 mmol/L (98-107); Creatine Kinase 40 U/L (30-135); Estimated Glomerular Filt Rate > 60.0 mL/min (>60); Globulin 2.9 g/dL (1.7-4.1); Glucose 92 mg/dL (70-100); Lipase 173 U/L (23-300); Potassium 4.3 mmol/L (3.4-5.1); Sodium 139 mmol/L (137-145); Total Protein 7.4 g/dL (6.3-8.2)
--- NOTE | 2021-07-12 13:24 | PC.NURSE ---
has been having elevated blood pressures and some concerns about abnormal thyroid.
[2021-07-12 13:26] LABS: HEMOLYSIS 56 (0-50)
[2021-07-12 13:33] LABS: Troponin I < 0.012 ng/mL (0.01-0.034)
[2021-07-12 14:30] LABS: COVID19 - ADMIT (NP swab/PCR) Negative (Negative)
--- NOTE | 2021-07-12 14:49 | ED.HA ---
HPI - Headache General Chief Complaint: Headache Stated Complaint: blurred double vision,headache, heart murmur Time Seen by Provider: 07/12/21 14:44 Source: patient, family (spouse) and old records reviewed Mode of arrival: Ambulatory Limitations: no limitations History of Present Illness HPI Narrative: This is a 56-year-old female comes emergency department with complaint of headache for the past 3 and half weeks. Patient states she developed her headaches 1st thing in the morning typically when she has woken up she would typically have coffee and they would go away but today it got a little bit better and then came back has been persistent. She denies any photophobia. She did note some vision changes about 2 weeks ago and went to her blender laborer who told her she needed glasses and she had loss of her far site she states that was helpful. She does have a history of migraines but has not had headaches for a couple years. Patient has not taken any yoxl-qdm-gvcbzuu medications. Today she noted that her vision seemed a little blurry and she thought her 1 pupil looked slightly different in size than the other about 11:30 a.m. patient denies any chest pain, shortness of breath. No fevers or chills. No cold cough or congestion. She has had some abdominal discomfort for 3 weeks and starting the metformin and glipizide. She started them 1 day apart. She has had nausea today only but no vomiting. No diarrhea constipation but states her stools have been a whitish brown and smaller in amount. She was having some dysuria and frequency which is improved since starting the medications. She has not had any incontinence. She notes she has had burning in her right leg which was initially small pointed air in the leg and is now running from the knee up to her thigh. It is worse with movement she has not tried anything for it. She was also told she had a murmur on exam with her primary care has an echo scheduled for the 21 of July. She takes Synthroid longstanding and was started on metformin and glipizide for a new history of type 2 diabetes. She denies any prior surgical history. Latex, shellfish, pollen and penicillin allergies. Shellfish is rash. She quit smoking 20 years ago, no alcohol, no illicit. Dr. Dupree is her primary care and she is accompanied by her . Related Data Home Medications Medication Instructions Recorded Confirmed fluticasone propionate 50 1 spray NASAL DAILY PRN 03/25/19 06/07/21 mcg/actuation nasal spray,suspension (Flonase Allergy Relief) Previous Rx's Medication Instructions Recorded mometasone 50 mcg/actuation nasal 2 spray NASAL DAILY #17 gram 03/30/20 spray (Nasonex) glipizide 2.5 mg tablet, extended 2.5 mg PO DAILY #30 tab 06/07/21 release 24 hr levothyroxine 200 mcg tablet 200 mcg PO DAILY #90 tab 06/07/21 metformin 500 mg tablet 500 mg PO BID #60 tab 06/07/21 blood sugar diagnostic (Blood #50 ea 06/09/21 Glucose Test) blood-glucose meter #1 ea 06/09/21 lancets 32 gauge (Easy Touch #100 ea 06/09/21 Lancets) Allergies Allergy/AdvReac Type Severity Reaction Status Date / Time adhesive Allergy Severe HIVES Verified 07/12/21 12:41 bacitracin Allergy Severe Hives/ Rash Verified 07/12/21 12:41 latex Allergy Severe HIVES Verified 07/12/21 12:41 neomycin Allergy Severe Hives/ Rash Verified 07/12/21 12:41 polymyxin B Allergy Severe Hives/ Rash Verified 07/12/21 12:41 shellfish derived Allergy Mild ITCHING Verified 07/12/21 12:41 ALL OVER BODY Penicillins Allergy Unknown I was Verified 07/12/21 12:41 told that. I was a child when it happened. Sulfa (Sulfonamide Allergy Unknown makes me Verified 07/12/21 12:41 Antibiotics) more sick. I can't remember how bad. Review of Systems Review of Systems ROS Unobtainable: All systems reviewed & are unremarkable except as noted in HPI and below Patient History Medical History Fractures Heart murmur Hyperglycemia Hyperlipemia Hypothyroidism (03/02/11) Low back pain Migraine headache Pneumonia Scarlet fever Seasonal allergic rhinitis Type 2 diabetes mellitus Well adult exam Surgical History No history of previous surgery Social History Smoking Status: Former smoker Tobacco: How many years used: 8 second hand exposure: No alcohol intake: current substance use type: marijuana Smoking Status: Former smoker alcohol intake frequency: 0-2 drinks per day Substance Use Type: does not use Exam Narrative Exam Narrative: GEN: well nourished, well appearing female, alert and oriented x 3, patient appears to be in mild distress. HEENT: Atraumatic, pupils are equal round reactive to light, extraocular movements are intact, nares are clear, TMs are clear with no fluid, there is no conjunctival pallor. Throat is clear without any exudates, erythema, tonsillar enlargement or uvular deviation, no facial droop. Normal speech. HEART: Regular rate and rhythm with 3/6 systolic murmur, clicks, rubs. No carotid bruits, pulses are equal in upper and lower extremities LUNGS:Lungs clear to auscultation, no wheezes, rales, crackles, chest moves symmetrically ABD:bowel sounds normal, soft, non-tender, no guarding, rebound, rigidity, no masses noted, no hepatosplenomegaly :No CVA tenderness MSCL: Patient has discomfort on deep palpation of the right piriformis, she has increased pain with flexion of the hip, straight leg raise and rolling over in the bed as well as when she runs the heel of her right foot down her left leg. Muscle atrophy, muscles strength 5/5 upper and lower extremities, full range of motion, normal gait NEURO:CN 2-12 intact, sensation normal, Finger nose finger test normal, heel shaver test normal, romberg normal SKIN: No rash, erythema or other skin changes. Initial Vital Signs Initial Vital Signs: Vital Signs Temperature 97.4 F L 07/12/21 12:36 Pulse Rate 40 L 07/12/21 12:36 Respiratory Rate 18 07/12/21 12:36 Pulse Oximetry 99 07/12/21 12:36 Scores NIH Stroke Scale Level of Conciousness: Alert, keenly responsive Ask month/age: Answers both questions correctly. Open/close eyes, close hand: Performs both tasks correctly Best gaze horizontal: Normal Visual harris: No visual loss Facial palsy: Normal symetrical movement Left arm drift: No drift for full 10 sec Right arm drift: No drift for full 10 sec Left leg drift: No drift for full 5 sec Right leg drift: No drift for full 5 sec Limb ataxia: Absent Sensory on face/arms/legs: Normal, no sensory loss Best language: No aphasia, normal Dysarthria: Normal Extinction or inattention: No abnormality Total NIH Stroke scale score: 0 Course Orders Ordered: ED Orders 07/12/21 12:00 Complete Blood Count AUTO DIFF Stat Comprehensive Metabolic Panel Stat Free T4, Direct Thyroxine Stat Lipase Stat Magnesium Stat Partial Thromboplastin Time Stat Prothrombin Time INR Stat TSH w/ Reflex to FT4 Stat Troponin & CK Cardiac Panel Stat 07/12/21 12:42 XR chest 1V Stat EKG-12 Lead Stat 07/12/21 13:31 COVID19 - ADMIT ([employer] swab/PCR) Stat 07/12/21 15:18 CT Stroke Stat XR hip w pel if done RT 2V Stat 07/12/21 15:19 CT angio head and neck Stat Discontinued Medications Morphine Sulfate (Morphine 4 Mg/Ml Inj) 4 mg IV NOW ONE Stop: 07/12/21 15:19 Last Admin: 07/12/21 15:27 Dose: 4 mg Documented by: DEBBIE Reevaluation(s) Reevaluation #1: Patient feels much better after pain medications she has been up and ambulated to the bathroom several times. Vital Signs Vital signs: Vital Signs - 8 hr 07/12/21 12:36 07/12/21 12:48 07/12/21 13:00 Temperature 97.4 F L Pulse Rate 40 L 87 86 Respiratory Rate 18 30 H 16 Blood Pressure 185/87 H 193/84 H Pulse Oximetry 99 98 07/12/21 13:17 07/12/21 13:30 07/12/21 13:45 Temperature Pulse Rate 92 H 91 H 88 Respiratory Rate 20 7 L Blood Pressure Pulse Oximetry 99 97 07/12/21 13:59 07/12/21 14:00 07/12/21 14:15 Temperature Pulse Rate 87 89 86 Respiratory Rate 9 L 18 0 L Blood Pressure 145/85 H 120/73 141/81 H Pulse Oximetry 99 99 97 07/12/21 14:30 07/12/21 14:45 07/12/21 14:46 Temperature Pulse Rate 86 80 82 Respiratory Rate 15 22 22 Blood Pressure 147/75 H 147/79 H Pulse Oximetry 96 99 97 07/12/21 15:00 07/12/21 15:15 07/12/21 15:30 Temperature Pulse Rate 80 81 86 Respiratory Rate 28 H 28 H 13 Blood Pressure 156/76 H 145/74 H 139/70 Pulse Oximetry 98 98 97 07/12/21 15:47 07/12/21 16:00 07/12/21 16:15 Temperature Pulse Rate 89 85 80 Respiratory Rate 17 18 Blood Pressure Pulse Oximetry 95 96 95 07/12/21 16:30 07/12/21 16:45 07/12/21 17:00 Temperature Pulse Rate 79 77 80 Respiratory Rate 28 H 28 H 17 Blood Pressure Pulse Oximetry 94 96 97 07/12/21 17:14 Temperature Pulse Rate Respiratory Rate Blood Pressure 158/69 H Pulse Oximetry MDM - Headache Lab Data Result diagrams: 07/12/21 12:00 07/12/21 12:00 Labs: Lab Results 07/12/21 07/12/21 07/12/21 Range/Units 12:00 12:00 12:00 WBC 8.1 (4.5-11.0) X10^3/uL RBC 5.15 (4.0-5.2) X10^6/uL Hgb 14.6 (12.0-16.0) g/dL Hct 43.8 (36-46) % MCV 85.0 (80-100) fL MCH 28.4 (26-34) PG MCHC 33.4 (30-36) % RDW 13.5 (11.6-14.8) % Plt Count 243 (150-400) X10^3/uL Neut % (Auto) 64.0 (50-75) % Lymph % (Auto) 28.3 (25-40) % [place] % (Auto) 6.1 (3-14) % Eos % (Auto) 0.9 L (2-4) % Baso % (Auto) 0.7 (0-2) % Neut # (Auto) 5200 (6459-1854) /uL Lymph # (Auto) 2300 (7164-7534) /uL [place] # (Auto) 500 (0-900) /uL Eos # (Auto) 100 (0-450) /uL Baso # (Auto) 100 (0-100) /uL PT 11.7 (10.1-12.7) SECONDS INR 1.1 (0.9-1.3) APTT 59 H (26.4-36.2) SECONDS Sodium 139 (137-145) mmol/L Potassium 4.3 (3.4-5.1) mmol/L Chloride 104 (98-107) mmol/L Carbon Dioxide 28 (22-32) mmol/L BUN 19 H (7-17) mg/dL Creatinine 0.46 L (0.52-1.04) mg/dL Estimated GFR > 60.0 (>60) mL/min BUN/Creatinine Ratio 41.3 H (6-22) Glucose 92 (70-100) mg/dL Calcium 9.4 (8.4-10.2) mg/dL Magnesium 2.0 (1.6-2.3) mg/dL Total Bilirubin 0.6 (0.2-1.3) mg/dL AST 28 (14-36) IU/L ALT 20 (<35) IU/L Alkaline Phosphatase 49 (38-126) U/L Total Creatine Kinase 40 (30-135) U/L CK-MB (CK-2) TNP CK-MB (CK-2) Rel Index TNP Troponin I < 0.012 (0.01-0.034) ng/mL Total Protein 7.4 (6.3-8.2) g/dL Albumin 4.5 (3.5-5.0) g/dL Globulin 2.9 (1.7-4.1) g/dL Albumin/Globulin Ratio 1.6 (1.0-2.8) Lipase 173 (23-300) U/L TSH (0.47-4.68) uIU/mL Free T4 (0.78-2.19) ng/dL SARS-CoV-2 (PCR) (Negative) 07/12/21 07/12/21 Range/Units 12:00 13:31 WBC (4.5-11.0) X10^3/uL RBC (4.0-5.2) X10^6/uL Hgb (12.0-16.0) g/dL Hct (36-46) % MCV (80-100) fL MCH (26-34) PG MCHC (30-36) % RDW (11.6-14.8) % Plt Count (150-400) X10^3/uL Neut % (Auto) (50-75) % Lymph % (Auto) (25-40) % [place] % (Auto) (3-14) % Eos % (Auto) (2-4) % Baso % (Auto) (0-2) % Neut # (Auto) (1735-4976) /uL Lymph # (Auto) (7525-6296) /uL [place] # (Auto) (0-900) /uL Eos # (Auto) (0-450) /uL Baso # (Auto) (0-100) /uL PT (10.1-12.7) SECONDS INR (0.9-1.3) APTT (26.4-36.2) SECONDS Sodium (137-145) mmol/L Potassium (3.4-5.1) mmol/L Chloride (98-107) mmol/L Carbon Dioxide (22-32) mmol/L BUN (7-17) mg/dL Creatinine (0.52-1.04) mg/dL Estimated GFR (>60) mL/min BUN/Creatinine Ratio (6-22) Glucose (70-100) mg/dL Calcium (8.4-10.2) mg/dL Magnesium (1.6-2.3) mg/dL Total Bilirubin (0.2-1.3) mg/dL AST (14-36) IU/L ALT (<35) IU/L Alkaline Phosphatase (38-126) U/L Total Creatine Kinase (30-135) U/L CK-MB (CK-2) CK-MB (CK-2) Rel Index Troponin I (0.01-0.034) ng/mL Total Protein (6.3-8.2) g/dL Albumin (3.5-5.0) g/dL Globulin (1.7-4.1) g/dL Albumin/Globulin Ratio (1.0-2.8) Lipase (23-300) U/L TSH 0.37 L (0.47-4.68) uIU/mL Free T4 2.03 (0.78-2.19) ng/dL SARS-CoV-2 (PCR) Negative (Negative) Urine Dip Bedside Urine Glucose Negative Bedside Urine Bilirubin - Negative Bedside Urine Ketone +/- 5 Urine Specific [place] 1.020 Bedside Urine Occult Blood - Negative Bedside Urine pH 6.0 Bedside Urine Protein - Negative Bedside Urine Urobilinogen - Negative Bedside Urine Nitrite - Negative Bedside Urine Leukocytes - Negative Esterase Imaging Data CTA - brain/neck: Radiologist's Impression: Tongue,Hawa F??56??F??1965 ? Allergy/Adv: adhesive, bacitracin, latex, neomycin, polymyxin B, shellfish derived, Penicillins, Sulfa (Sulfonamide Antibiotics) (More??) Close Head/Neck CTA (Signed) Sandeep Lujan - 07/12/21 Hip X-Ray 07/12/[address] (Signed) Sandeep Lujan - 07/12/21 Chest X-Ray (Signed) Hieu Lujanic - 07/12/21 Mammogram Screening (Signed) Norma Gilliam - 07/17/19 Chest X-Ray (Signed) Wes Villalba - 08/18/[address] (Signed) Fidel Villa - 01/14/18 Chest X-Ray (Signed) Fidel Villa - 01/14/18 Mammogram Screening (Signed) Jeovanny Jones - 01/02/18 Launch?[place] [address] CT Scan Report Signed Patient: Hawa Quinn MR#: [id number] : 1965 Acct:[id number] Age/Sex: 56 / F Date of Service: 07/12/21 Loc: ED Accession Number: [id number] ?? Procedure: CT angio head and neck Ordering Provider: Triny Mendez D.O. PROCEDURE:? CT ANGIO HEAD AND NECK ? INDICATIONS:? possible stroke ? TECHNIQUE:? After the administration of intravenous contrast, 1 mm thick sections acquired from the aortic arch through the [place] of [place].? Post-contrast 4.5 mm thick sections then re-acquired from the foramen magnum to the vertex.? 3-dimensional fcvbnuj-arkvyyoqr-qxounfbzhq (MIP) and/or volume rendering reformats were acquired of the central intracranial vasculature and neck separately. ? COMPARISON:? [facility], CT, CT STROKE, 07/12/2021, 15:30. ? FINDINGS:? Image quality:? Excellent.? ? BRAIN:? CSF spaces:? Ventricles are normal in size and shape.? Basal cisterns are patent.? No extra-axial fluid collections.? ? Brain:? No midline shift.? No intracranial bleeds or masses.? Ordoñez-white matter interface appears intact.? ? Skull and face:? Calvarium and facial bones appear intact, without suspicious lesions.? Orbits appear normal.? ? Sinuses:? Sinuses and mastoids are clear.? ? HEAD CT ANGIOGRAPHY:? Anterior circulation:? Intracranial internal carotid arteries are normal in size and flow.? The flow within the paired anterior cerebral arteries is normal and symmetric.? The flow within the middle cerebral arteries is normal and symmetric.? The anterior communicating artery is seen.? No aneurysms are seen.? ? Posterior circulation:? Visualized portions of the vertebral arteries demonstrate normal caliber, and join to form a normal appearing basilar artery.? Flow within the posterior cerebral arteries is normal and symmetric.? No aneurysms are seen.? ? NECK CT ANGIOGRAPHY:? Carotid system:? The great vessels demonstrate a conventional anatomy as they arise from the aortic arch.? The origins of the common carotid arteries appear patent.? The common carotid arteries demonstrate normal caliber and courses.? Prominent left carotid body calcifications.? Bilateral mild proximal internal carotid artery stenosis, right greater than left, each measuring less than 50%. ? Posterior circulation:? The origins of the vertebral arteries both appear widely patent.? The more superior extracranial portions of both vertebral arteries also demonstrate normal courses and calibers.? They join to form a normal appearing basilar artery.? ? Soft tissues:? Visualized neck soft tissues demonstrate no suspicious abnormalities.? ? Bones:? No suspicious bony lesions.? Visualized cervical spine appears normally aligned.? IMPRESSION:? ? 1. No evidence acute stroke, hemorrhage, or mass. ? 2. Unremarkable CTA head.? No stenosis, aneurysm, occlusion, or focal filling defect. ? 3. Bilateral mild internal carotid artery stenosis, right greater than left.? ? Comment: Findings were discussed with Dr. Mendez at the time of study dictation on 07/12/2021 at 1605 hours. ? Any quantitative measurements of stenosis were performed using NASCET criteria.? ? ? Dictated by: Sandeep Lujan M.D. on 07/12/2021 at 15:59 ? ? Approved by: Sandeep Lujan M.D. on 07/12/2021 at 16:04?? ECG Data Attestation: I personally reviewed and interpreted this ECG as follows: Interpretation: Ventricular rate 82 OH 170, QRS 86 and QTC of 439. Patient has a PVC after every single QRS complex. And a pattern of bigeminy but otherwise sinus rhythm. She does not have any ST elevation appreciated. No depression noted. Patient has prior EKG from 01/14/2018 with frequent PVCs but not in a bigeminal pattern. On patient's telemetry she continues to have PVCs but less frequently. MDM Narrative Medical decision making narrative: This is a 56-year-old female comes in with complaint of headache for 3-1/2 weeks her headache started at the same time she started metformin and glipizide. She has been continuing these daily. She would take caffeine in the morning which seemed make it better but they come back morning patient states today's has not resolved. She thought her pupils were different sized earlier today at work. They it is not appreciated here. She did not have anyone else look at her eyes at that time. She has not had any other new neurologic changes. She has some right leg pain which has been longstanding. She is a newly diagnosed diabetic her NIH is bizarre. Patient has a head CT and CT angiography are negative. She did have a PVC pattern which was bigeminal. She has had prior EKGs with frequent PVCs is also appreciated today on her tele although less frequently. Labs did not show any over acute changes. She is scheduled for ECHO on the . Discharge Plan Departure Patient Disposition: Home Clinical Impression: Persistent headaches, Leg pain, right Instructions: DI for Headache Activity Restrictions/Additional Instructions: Follow-up with your physician. I would try stopping your anti diabetic medication and seeing if this resolves your headaches. It is a documented side effect of metformin and sometimes glipizide although not frequently a cause. If her headaches resolved I would discuss with your physician they may restart one of your anti diabetic medications and make adjustments to the second. Your labs as well as CT imaging today do not show any acute changes. Return for fevers, rapidly worsening headaches, lightheadedness or passing out, persistent vomiting, new weakness, numbness, loss of sensation, inability to lift or move her leg, difficulty with speech or other new or concerning symptoms. Prescriptions: No Action metformin 500 mg tablet 500 mg PO BID Qty: 60 5RF glipizide 2.5 mg tablet extended release 24 hr 2.5 mg PO DAILY Qty: 30 5RF (DME) blood-glucose meter Misc See Rx Instructions .Route Qty: 1 0RF Rx Instructions: Use to check your blood sugar three times daily before meals (DME) Blood Glucose Test Strip See Rx Instructions .Route Qty: 50 5RF Rx Instructions: Use to check your blood sugars three times daily (DME) Easy Touch Lancets 32 gauge misc See Rx Instructions .Route Qty: 100 5RF Rx Instructions: Use to check your blood sugar three times daily fluticasone propionate [Flonase Allergy Relief] 50 mcg/actuation spray,suspension 1 spray NASAL DAILY PRN0RF mometasone [Nasonex] 50 mcg/actuation spray,non-aerosol 2 spray NASAL DAILY Qty: 17 3RF Rx Instructions: administer into each nostril levothyroxine 200 mcg tablet 200 mcg PO DAILY Qty: 90 3RF Referrals: Sruesh Dupree, [Primary Care Provider] -
--- NOTE | 2021-07-12 15:18 | DI.CT.S_ITS ---
PROCEDURE: CT STROKE INDICATIONS: 3 wks HAs, pupil different at home today, blurred vision TECHNIQUE: Noncontrast 4.5 mm thick angled axial sections acquired from the foramen magnum to the vertex, with coronal reformats. For radiation dose reduction, the following was used: automated exposure control, adjustment of mA and/or kV according to patient size. COMPARISON: None. FINDINGS: Image quality: Excellent. CSF spaces: Basal cisterns are patent. No extra-axial fluid collections. Ventricles are normal in size and shape. Brain: No midline shift. No intracranial masses or hemorrhage. Ordoñez-white matter interface is normal. Skull and face: Calvarium and visualized facial bones are intact, without suspicious lesions. Sinuses: Visualized sinuses and mastoids are clear 07/12/2021. IMPRESSION: Comment: Findings were discussed with Dr. Mendez on 07/12/2021 at 1550 hours This study fulfills neurological imaging criteria for inclusion or exclusion of acute stroke therapies based on available published neurological imaging guidelines. Dictated by: Sandeep Lujan M.D. on 07/12/2021 at 15:49 Approved by: Sandeep Lujan M.D. on 07/12/2021 at 15:52
--- NOTE | 2021-07-12 15:18 | DI.RAD.S_ITS ---
PROCEDURE: XR HIP W PEL IF DONE RT 2V INDICATIONS: right hip pain TECHNIQUE: AP pelvis with lateral view of the right hip. COMPARISON: None. FINDINGS: Bones: No fractures or dislocations. Pelvic ring appears intact. No suspicious bony lesions. Soft tissues: The visualized bowel gas pattern is normal. No suspicious soft tissue calcifications. IMPRESSION: 1. No fracture or dislocation. Dictated by: Sergey Alfonso M.D. on 07/12/2021 at 15:23 Approved by: Sergey Alfonso M.D. on 07/12/2021 at 15:41
--- NOTE | 2021-07-12 15:19 | DI.CT.S_ITS ---
PROCEDURE: CT ANGIO HEAD AND NECK INDICATIONS: possible stroke TECHNIQUE: After the administration of intravenous contrast, 1 mm thick sections acquired from the aortic arch through the [place] of [place]. Post-contrast 4.5 mm thick sections then re-acquired from the foramen magnum to the vertex. 3-dimensional serkcfz-xybhiubhf-bhlrejfbsq (MIP) and/or volume rendering reformats were acquired of the central intracranial vasculature and neck separately. COMPARISON: [facility], CT, CT STROKE, 07/12/2021, 15:30. FINDINGS: Image quality: Excellent. BRAIN: CSF spaces: Ventricles are normal in size and shape. Basal cisterns are patent. No extra-axial fluid collections. Brain: No midline shift. No intracranial bleeds or masses. Ordoñez-white matter interface appears intact. Skull and face: Calvarium and facial bones appear intact, without suspicious lesions. Orbits appear normal. Sinuses: Sinuses and mastoids are clear. HEAD CT ANGIOGRAPHY: Anterior circulation: Intracranial internal carotid arteries are normal in size and flow. The flow within the paired anterior cerebral arteries is normal and symmetric. The flow within the middle cerebral arteries is normal and symmetric. The anterior communicating artery is seen. No aneurysms are seen. Posterior circulation: Visualized portions of the vertebral arteries demonstrate normal caliber, and join to form a normal appearing basilar artery. Flow within the posterior cerebral arteries is normal and symmetric. No aneurysms are seen. NECK CT ANGIOGRAPHY: Carotid system: The great vessels demonstrate a conventional anatomy as they arise from the aortic arch. The origins of the common carotid arteries appear patent. The common carotid arteries demonstrate normal caliber and courses. Prominent left carotid body calcifications. Bilateral mild proximal internal carotid artery stenosis, right greater than left, each measuring less than 50%. Posterior circulation: The origins of the vertebral arteries both appear widely patent. The more superior extracranial portions of both vertebral arteries also demonstrate normal courses and calibers. They join to form a normal appearing basilar artery. Soft tissues: Visualized neck soft tissues demonstrate no suspicious abnormalities. Bones: No suspicious bony lesions. Visualized cervical spine appears normally aligned. IMPRESSION: 1. No evidence acute stroke, hemorrhage, or mass. 2. Unremarkable CTA head. No stenosis, aneurysm, occlusion, or focal filling defect. 3. Bilateral mild internal carotid artery stenosis, right greater than left. Comment: Findings were discussed with Dr. Mendez at the time of study dictation on 07/12/2021 at 1605 hours. Any quantitative measurements of stenosis were performed using NASCET criteria. Dictated by: Sandeep Lujan M.D. on 07/12/2021 at 15:59 Approved by: Sandeep Lujan M.D. on 07/12/2021 at 16:04
[2021-07-12] MEDS: MORPHINE 4 MG/ML INJ IV (15:27)
[2021-07-12 15:46] LABS: TSH w/ Reflex to FT4 0.37 uIU/mL (0.47-4.68)
[2021-07-12 16:38] LABS: Free T4, Direct Thyroxine 2.03 ng/dL (0.78-2.19)
== END 2021-07-12 17:22 | disposition home or self-care (01) ==
PROVIDERS: Emergency Provider Emergency Medicine; PCP Family Medicine
DX: R51.9 Headache, unspecified (principal); M79.651 Pain in right thigh; I49.3 Ventricular premature depolarization; Z20.822 Contact with and (suspected) exposure to COVID-19
CPT/HCPCS: 36415; 70450; 70496; 70498; 71045; 73502; 80053; 81003; 82550; 83690; 83735; 84439; 84443; 84484; 85025; 85610; 85730; 87635; 93005; 93010; 96374; 99284; C9803; J2270; Q9967

== ENCOUNTER → 2021-07-21 09:03 | Outpatient (CLI) | payer OTHER, SELFPAY ==
--- NOTE | 2021-07-21 09:07 | DI.ECHO.S_ITS ---
[place] [facility] +---------+ : : [address] : : : : [id number] : : : : Phone: [phone]---------+ Echocardiogram Report + + :Name: JOIE BAZZI Study Date: 07/21/2021 Height: 63 in : :[facility] ReadingLocation: Weight: 208 lb : : Gender: Female BSA: 2.0 m2 : :: 1965 Age: 56 yrs BP: 120/73 mmHg: :Reason For Study: Murmur : :Ordering Physician: : :ALEK Performed By: Albert Cervantes : :Referring: HELEN ZIMMERMAN : + + Interpretation Summary Left ventricular systolic function appears normal with an estimated ejection fraction of 60 to 65% without any focal wall motion abnormalities. Left ventricular size and wall thickness appear normal. Diastolic function is likely normal with normal filling pressures. The right ventricle is borderline enlarged with normal systolic function. Right ventricular systolic pressure is at least 23 mmHg with a CVP of 3 mmHg. There is borderline biatrial enlargement. There is mild mitral regurgitation and mild tricuspid regurgitation. There is moderate aortic valve sclerosis with mild aortic stenosis with a peak transvalvular velocity of 2.6 m/s and a mean gradient of 17 mmHg. The severity ratio is 0.41. The ascending aorta is mildly enlarged. Procedure: A two-dimensional transthoracic echocardiogram with color flow and Doppler was performed. There is no prior echocardiogram noted for this patient. Fair image quality, aquisition of images technically difficult. The patient was in normal sinus rhythm during the exam. The patient had frequent PVCs during the exam. Left Ventricle: The left ventricle is normal in size and wall thickness. There is borderline proximal septal thickening noted. Left ventricular systolic function appears normal without focal wall motion abnormalities. The ejection fraction is estimated to be 60-65%. Diastolic parameters suggest probable normal left ventricular diastolic function and normal filling pressures. Right Ventricle: The right ventricle is borderline dilated. The right ventricular systolic function is normal. Atria: There is borderline biatrial enlargement. Right atrial volume index is 29.8 mL/mA?. There is no Doppler evidence for an interatrial shunt. IAS appears thin and pliable. Mitral Valve: The mitral valve is normal. There is mild mitral regurgitation. Aortic Valve: The aortic valve is trileaflet. The aortic valve is moderately calcified. There is mildly reduced leaflet mobility. There is mild aortic stenosis. The peak aortic velocity is 2.6 m/sec. The aortic valve mean gradient is 17 mmHg. No aortic regurgitation is present. Tricuspid Valve: The tricuspid valve is normal. There is mild tricuspid regurgitation. The right ventricular systolic pressure is estimated to be at least 23 mmHg based on an estimated right atrial pressure of 3 mm Hg. Pulmonic Valve: The pulmonic valve is normal in structure and function. Great Vessels: The aortic root is normal size. The ascending aorta is mildly enlarged. The aortic arch is normal in size. The IVC is of normal diameter and collapses greater than 50% with a sniff. This suggests a low right atrial pressure of 3 mm Hg. Pericardium/ Pleura There is no pericardial effusion. There is an anterior echo-free space consistent with a fat pad. There is no pleural effusion. MMode/2D Measurements & Calculations LVIDd: 4.6 cm LVOT diam: 2.0 cm LVIDs: 3.5 cm Ao root diam: 2.9 cm FS: 23.9 % asc Aorta Diam: 3.7 cm IVSd: 0.90 cm Ao Arch Diam (Prox Trans): 2.9 cm LVPWd: 0.70 cm LV roth. diameter/BSA (cm/m^2): 2.3 LV sys. diameter/BSA (cm/m^2): 1.8 LA A2 area: 24.1 cm2 RA long axis: 5.2 cm LA A4 area: 19.4 cm2 LA length (vol): 5.7 cm LA vol: 69.4 ml LA vol index: 35.3 ml/m2 LVLs ap4: 6.0 cm LVLd ap2: 8.1 cm LVLs ap2: 6.1 cm TAPSE_phl: 2.5 cm Doppler Measurements & Calculations Ao V2 max: 255.0 cm/sec LVOT Max Roberto Carlos: 113.0 cm/sec Ao V2 mean: 201.0 cm/sec LV V1 max P.1 mmHg Ao max P.0 mmHg LV V1 VTI: 27.8 cm Ao mean P.0 mmHg SUAD(I,D): 1.3 cm2 Ao V2 VTI: 68.1 cm SUAD(V,D): 1.4 cm2 sev ratio: 0.41 SUAD indexed to BSA (cm^2/m^2): 0.65 MV E max roberto carlos: 110.0 cm/sec TR max roberto carlos: 221.3 cm/sec MV A max roberto carlos: 116.0 cm/sec TR max P.6 mmHg MV E/A: 0.95 PA V2 max: 90.7 cm/sec Med Peak E' Roberto Carlos: 8.4 cm/sec PA V2 mean: 72.3 cm/sec E/E' med: 13.1 PA mean P.0 mmHg Lat Peak E' Roberto Carlos: 10.5 cm/sec PA pr(Accel): 23.6 mmHg E/E' lat: 10.5 E/e' average: 11.8 MV dec time: 0.22 sec SV(LVOT): 87.3 ml AV VR_phl: 0.46 SUAD(VTI)/BSA_phl: 0.68 MV P1/2t-pr_phl: 64.0 msec Reading Physician:01:44 PM
== END ==
PROVIDERS: PCP Family Medicine; Referring Provider Family Medicine; Visit Provider Family Medicine
DX: I08.3 Combined rheumatic disorders of mitral, aortic and tricuspid valves (principal); I77.89 Other specified disorders of arteries and arterioles; R01.1 Cardiac murmur, unspecified
CPT/HCPCS: 93306

== ENCOUNTER → 2021-07-27 09:16 | Outpatient (CLI) | payer OTHER, SELFPAY ==
--- NOTE | 2021-07-27 17:02 | DIAB.INIT ---
Initial Diabetes Education Assessment Name: Hawa Quinn (Marva) Date: 07/27/21 Time: 041-0456h Dx: Type II diabetes Provider: Joon Aguilera Learning Style: Hands-on Marva presents for initial DM visit. States she has made a lot of changes to her diet and exercise, which is reflected in her well managed BG. Reports FH of T2Dm with maternal aunt. Onset of T2DM with 100# weight loss and frequent urination and thirst. HgA1c of 13.9% in June. Was rx?d glipizide 2.5 mg in the morning. Also rx?d Metformin 500 mg BID, but started having headaches to the point of impacting her eye sight, which lead her to go to the ER two weeks ago. They recommended she stop the Metformin and glipizide. She restarted the glipizide but is wondering if she should take Metformin instead. Has reached out to provider and awaiting response. When first dx, started having eye sight issues-- loss of far sight. States she went to exchange specialist and nothing notable for DM. Has recent improved. States exercise has a great impact on BG. If readings are >140 she takes a walk or gets on her stationary bike. Has cut out most carbs from her diet. With h/o elevated LDL some concerns for getting enough fiber on low carb diet. Takes a Mg supplement that she thought had fiber but upon review it does not. Some higher fiber foods she eats: avocado, nuts. Marva seems very motivated and has already implemented successful lifestyle changes, which she feels is sustainable. Physical Activity: Walks, bikes, yoga, or gym 5 or more days per week for 30 mins. [place], which [place] a lot of walking and gardening. Prior to dx was only walking and gardening. Self-Monitoring Blood Glucose: Checks BG min of 8 times per day. Checking FBG, ac and pc. Not very interested in [employer] edmundo option at this time. Purchasing testing strips from [employer]. All readings in goal range with most FBG 100-110 and after meals <140. One recent lower reading of 73 this weekend when she skipped a meal. Otherwise no recent lows. Diabetes Medications: Glipizide XR 2.5 mg am Metformin 500 mg BID (not taking) Pertinent Labs: HgA1c 13.9 Past Medical History: (Last Reviewed 07/12/21 @ 14:49 by Triny Mendez DO) Fractures Heart murmur Hyperglycemia Hyperlipemia Hypothyroidism (03/02/11) Low back pain Migraine headache No history of previous surgery Pneumonia Scarlet fever Seasonal allergic rhinitis Type 2 diabetes mellitus Well adult exam Intervention: This participant was very receptive. Provided appropriate educational handouts. Discussed the following topics: Completed intake assessment. Discussed barriers to care. Pathophysiology of type 2 diabetes HgA1c, its correlation to blood glucose numbers, and rationale for goal Self monitoring and goals per ADA and AACE Importance of fiber, miriam in low carb diets Sources of fiber and handout Heart health nutrition Role of physical activity and following provider guidelines for safety Created SMART goals for patient self-care and success. Goals: Bring log book next visit Consider higher fiber intake with food, potential for supplement Follow-up: DANIEL ULLOA follow-up in 3-4 weeks for 1:1. Plans to attend September classes with spouse. Marilyn Falcon RDN, [facility]ES Certified Diabetes Care and Marketing Project Specialist P: [phone] Thank you for this referral
== END ==
PROVIDERS: PCP Family Medicine; Referring Provider Family Medicine; Visit Provider Family Medicine
DX: E11.9 Type 2 diabetes mellitus without complications (principal)
CPT/HCPCS: G0108

== ENCOUNTER → 2021-09-06 09:24 | Outpatient (CLI) | payer OTHER, SELFPAY ==
--- NOTE | 2021-09-06 14:30 | DIAB.FU ---
Diabetes Education Class Series: Diabetes and Nutrition Name: Hawa Quinn Date: 09/06/21 Time: 370a-5633g Marva presents for class1 of diabetes education series. States she has made lot of changes to reduce carb intake. Her is very supportive. Reports working on losing 9#. States she has increased physical activity by walking home from work half way. Would like to try this before work as well. Also using balance exercises at home. One barrier, needing more information on label reading for net carbs. Class topics covered: ? Debunk nutrition myths and discuss how to sustain healthy eating long-term through moderation and variety ? Define macronutrients and determine their impact on blood sugars ? Discuss macronutrient pairing, Plate Method, and carb counting ? Review general recommendations for carbohydrates ? Practice label reading ? Discuss the role of fiber in diabetes and provide examples of sources ? Review heart health nutrition: fats, fiber, and sodium ? Determine recommendations for grocery shopping and eating out ? Discuss alcohol recommendations ? Review the role of substitute sugars in diabetes management ? Set SMART goals Goal Set: Increase walking by walking to work 1/2 way 1x before next week. Follow-up: Diabetes Physiology and Medication Class in one week Marilyn Falcon RDN, [facility] Certified Diabetes Care and Radiological Engineer P: [phone] Thank you for this referral
== END ==
PROVIDERS: PCP Family Medicine; Referring Provider Family Medicine; Visit Provider Family Medicine
DX: E11.9 Type 2 diabetes mellitus without complications (principal)
CPT/HCPCS: G0108

== ENCOUNTER → 2021-09-13 09:23 | Outpatient (CLI) | payer OTHER, SELFPAY ==
--- NOTE | 2021-09-13 16:30 | DIAB.FU ---
Diabetes Education Class Series: Diabetes Physiology and Medications Name: Hawa Quinn Date: 09/13/21 Time: [id number] Marva presents for DM ed class 2 of 3. States she has made some nutrition changes since last class. Tried some eating out strategies discussed with success. Also added a little more carbs to diet for satiety and BG actually improved. Had been aiming for very low carb diet previously. She is feeling very satisfied with changes. Has not implemented her phys activity goal from last week but still plans to. Reports BG cont in goal. All FBG <130 and after meal <160. Looking forward to new HgA1c. Class topics covered: ? Diabetes pathophysiology ? Discuss different types of diabetes ? Review criteria for diagnosing diabetes ? Review HgA1c measurement and associated blood sugars ? Review blood sugar monitoring safety, technique, and goals ? Discuss ways to reduce complications associated with diabetes, includes microvascular and macrovascular complications ? Review diabetes medications types, action, and side effects ? Health care visits recommended for people with T2DM ? Immunization recommended for people with T2DM ? SMART goals review Goal Set: Walk to work 1/2 way - in progress Follow-up: Diabetes Lifestyle and Ongoing Support Class next week Marilyn Falcon RDN, [facility] Certified Diabetes Care and Research Associate Policy P: [phone] Thank you for this referral
== END ==
PROVIDERS: PCP Family Medicine; Referring Provider Family Medicine; Visit Provider Family Medicine
DX: E11.9 Type 2 diabetes mellitus without complications (principal); Z71.3 Dietary counseling and surveillance
CPT/HCPCS: G0109

== ENCOUNTER → 2021-09-20 09:21 | Outpatient (CLI) | payer OTHER, SELFPAY ==
--- NOTE | 2021-09-20 17:36 | DIAB.FU ---
Diabetes Education Class Series: Diabetes Lifestyle Change and Ongoing Support Name: Hawa Quinn Date: 09/20/21 Time: 757-8420 Marva reports good support at home with spouse. Continues to try and make good nutrition choices and increasing her exercise. For stress management, states she is expressive of her stress and uses walking to help alleviate stress. Class topics covered: ? Discuss the difference between physical activity and exercise ? Determine physical activity benefits and impact on diabetes ? Review physical activity recommendations and safety ? Discuss emergency preparedness ? Discuss diabetes and emotions (diabetes burnout/distress) ? Review and practice stress management techniques ? Review support groups and community resources ? Discuss the role of family support in diabetes care ? What is going well? Challenges of diabetes? ? Set SMART goals Goal Set: Walk to work half way - met Follow-up: 1:1 visit follow-up Marilyn Falcon RDN, [facility] Certified Diabetes Care and Rock Wool Applicator P: [phone] Thank you for this referral
== END ==
PROVIDERS: PCP Family Medicine; Referring Provider Family Medicine; Visit Provider Family Medicine
DX: E11.9 Type 2 diabetes mellitus without complications (principal); Z71.3 Dietary counseling and surveillance
CPT/HCPCS: G0109

== ENCOUNTER → 2021-10-03 08:03 | Outpatient (CLI) | payer OTHER, SELFPAY ==
[2021-10-03 09:14] LABS: Hemoglobin A1C% w Est Avg Glu 5.7 % (4.0-6.0)
[2021-10-03 09:25] LABS: Alanine Aminotransferase 18 IU/L (<35); Albumin 4.4 g/dL (3.5-5.0); Albumin Globulin Ratio 1.4 (1.0-2.8); Alkaline Phosphatase 51 U/L (38-126); Aspartate Aminotransferase 22 IU/L (14-36); BUN Creatinine Ratio 38.9 (6-22); Bilirubin Total 0.4 mg/dL (0.2-1.3); Blood Urea Nitrogen 21 mg/dL (7-17); Calcium 9.2 mg/dL (8.4-10.2); Carbon Dioxide 29 mmol/L (22-32); Chloride 105 mmol/L (98-107); Cholesterol 191 mg/dL (140-199); Estimated Glomerular Filt Rate > 60.0 mL/min (>60); Globulin 3.1 g/dL (1.7-4.1); Glucose 119 mg/dL (70-100); HDL Cholesterol 63 mg/dL (40-60); HEMOLYSIS < 15 (0-50); LDL Cholesterol Calculated 115 mg/dL (<100); Potassium 4.5 mmol/L (3.4-5.1); Sodium 140 mmol/L (137-145); Total Protein 7.5 g/dL (6.3-8.2); Triglycerides 67 mg/dL (35-150)
[2021-10-03 09:41] LABS: Free T4, Direct Thyroxine 1.84 ng/dL (0.78-2.19)
[2021-10-03 09:45] LABS: Creatinine Urine Random 106.3 mg/dL
[2021-10-03 09:50] LABS: Microalbumi Creatinin Ratio Ur 8.4 ug/mg CR (<30); Microalbumin Urine Random 0.9 mg/dL (0-1.6)
[2021-10-03 09:55] LABS: Thyroid Stimulating Hormone 0.043 uIU/mL (0.47-4.68)
== END ==
PROVIDERS: PCP Family Medicine; Referring Provider Family Medicine; Visit Provider Family Medicine
DX: E03.9 Hypothyroidism, unspecified (principal); E11.9 Type 2 diabetes mellitus without complications; E78.5 Hyperlipidemia, unspecified
CPT/HCPCS: 36415; 80053; 80061; 82043; 82570; 83036; 84439; 84443

== ENCOUNTER → 2021-10-26 15:13 | Outpatient (CLI) | payer OTHER, SELFPAY ==
--- NOTE | 2021-11-01 17:22 | DIAB.MNT ---
Initial Diabetes Medical Nutrition Therapy Assessment Name: Hawa Quinn Date: 10/26/21 Time: 345-430p Dx: Type II Diabetes Marva presents today after taking DSME class series. States she has not been craving sugar. Has been trying intermittent fasting diet, which results in eating only during the hours of 7a-9p. Seems to be very happy with current diet. Endorses +8# in the last month due to her dog passing. Had quite a bit of weight loss when diagnosed (-100#), some seems r/t hyperglycemia at the time. Has regained some weight (+20#), but overall seems to be doing well with diet and exercise. Saw provider since classes. hgA1c greatly improved but keeping on Metformin 500mg daily. Marva was taking it q other day due to feeling symptoms of hypoglycemia. No true lows reported (<70) Pretty low carb diet. May lack fiber as well. Endorses frequent loose BM. Unclear of culprit. may benefit from soluble fiber. Diet Recall: 9am: eggs +/- naan bread with cheese 1230p: salad +/- soup and fruit ; salmon cheese and banana 2p: cheese, nuts, fruit snack pk 530-7p: veggies and protein Denice: water x 4L, 2c coffee with monk fruit and nut milk Anthropometrics: Ht: 62 Wt: 239# last PCP visit Physical Activity: stationary bike 30 m q day, +/- walking half way to work. 8-10k steps per day. Self-Monitoring Blood Glucose: Lowest 79 mg/dL. Feels sweaty at 86 mg/dL. FBG usually 101-123 mg/dL. Pc readings <160 mg/dL. No true lows <70. Could be symptomatic from drastic changes in BG since diagnosed. Diabetes Medications: Metformin 500mg Pertinent Labs: 5.7% 09/27, down from 13.9% in 06/2021 Past Medical History: (Last Updated 10/20/21 @ 09:38 by Suresh Dupree DO) Fractures Heart murmur Hyperglycemia Hyperlipemia Hypothyroidism (03/02/11) Low back pain Migraine headache No history of previous surgery Pneumonia Scarlet fever Seasonal allergic rhinitis Seborrheic keratoses, inflamed Type 2 diabetes mellitus Well adult exam Nutrition Rx: Carbohydrates: Meal:30g Snack:15g Nutrition Diagnosis: - Predicted inadequate soluble fiber intake r/t limiting foods with carbs that likely also have high fiber aeb pt report and diet recall and loose BM Intervention: This participant was very receptive. Provided appropriate educational handouts. Discussed the following topics: Discussed changes she has made and great impact on BG Reviewed etiology of weight loss with hyperglycemia Reviewed s/s hypoglycemia and plan if cont to feel symptoms Ways to increase soluble fiber; oatmeal, bananas physical activity plan and impact on health Created SMART goals for patient self-care and success. Goals: Bring log book next visit- not met Consider higher fiber intake with food, potential for supplement- in progress New hgA1c in 6 months Follow-up: DANIEL ULLOA follow-up prn Marilyn Falcon RDN, [facility] Certified Diabetes Care and Bakery Machine Mechanic P: [phone] Thank you for this referral
== END ==
PROVIDERS: PCP Family Medicine; Referring Provider Family Medicine; Visit Provider Family Medicine
DX: E11.9 Type 2 diabetes mellitus without complications (principal); Z79.84 Long term (current) use of oral hypoglycemic drugs
CPT/HCPCS: 97802

== ENCOUNTER → 2022-06-27 07:48 | Outpatient (CLI) | payer OTHER, SELFPAY ==
[2022-06-27 09:48] LABS: Alanine Aminotransferase 22 IU/L (<35); Albumin 4.1 g/dL (3.5-5.0); Albumin Globulin Ratio 1.5 (1.0-2.8); Alkaline Phosphatase 70 U/L (38-126); Aspartate Aminotransferase 18 IU/L (14-36); BUN Creatinine Ratio 23.6 (6-22); Bilirubin Total 0.5 mg/dL (0.2-1.3); Blood Urea Nitrogen 13 mg/dL (7-17); Carbon Dioxide 25 mmol/L (22-32); Chloride 102 mmol/L (98-107); Cholesterol 199 mg/dL (140-199); Estimated Glomerular Filt Rate > 60 mL/min (>60); Globulin 2.7 g/dL (1.7-4.1); Glucose 142 mg/dL (70-100); HDL Cholesterol 54 mg/dL (40-60); HEMOLYSIS < 15 (0-50); LDL Cholesterol Calculated 120 mg/dL (<100); Potassium 4.5 mmol/L (3.4-5.1); Sodium 138 mmol/L (137-145); Total Protein 6.8 g/dL (6.3-8.2); Triglycerides 123 mg/dL (35-150)
[2022-06-27 10:16] LABS: Thyroid Stimulating Hormone 0.602 uIU/mL (0.47-4.68)
[2022-06-27 14:19] LABS: Hemoglobin A1C% w Est Avg Glu 6.4 % (4.0-6.0)
[2022-06-27 15:16] LABS: Free T4, Direct Thyroxine 1.82 ng/dL (0.78-2.19)
== END ==
PROVIDERS: PCP Family Medicine; Referring Provider Family Medicine; Visit Provider Family Medicine
DX: E03.9 Hypothyroidism, unspecified (principal); E11.9 Type 2 diabetes mellitus without complications; L82.0 Inflamed seborrheic keratosis
CPT/HCPCS: 36415; 80053; 80061; 83036; 84439; 84443

== ENCOUNTER → 2022-09-18 07:50 | Outpatient (CLI) | payer OTHER, SELFPAY ==
[2022-09-18 09:09] LABS: Alanine Aminotransferase 25 IU/L (<35); Albumin 4.1 g/dL (3.5-5.0); Albumin Globulin Ratio 1.6 (1.0-2.8); Alkaline Phosphatase 71 U/L (38-126); Aspartate Aminotransferase 20 IU/L (14-36); BUN Creatinine Ratio 44.7 (6-22); Bilirubin Total 0.3 mg/dL (0.2-1.3); Blood Urea Nitrogen 21 mg/dL (7-17); Calcium 8.9 mg/dL (8.4-10.2); Carbon Dioxide 25 mmol/L (22-32); Chloride 105 mmol/L (98-107); Cholesterol 194 mg/dL (140-199); Estimated Glomerular Filt Rate > 60 mL/min (>60); Globulin 2.6 g/dL (1.7-4.1); Glucose 143 mg/dL (70-100); HDL Cholesterol 60 mg/dL (40-60); HEMOLYSIS < 15 (0-50); LDL Cholesterol Calculated 116 mg/dL (<100); Potassium 4.4 mmol/L (3.4-5.1); Sodium 138 mmol/L (137-145); Total Protein 6.7 g/dL (6.3-8.2); Triglycerides 88 mg/dL (35-150)
[2022-09-18 09:10] LABS: Free T4, Direct Thyroxine 2.08 ng/dL (0.78-2.19)
[2022-09-18 09:25] LABS: Thyroid Stimulating Hormone < 0.015 uIU/mL (0.47-4.68)
== END ==
PROVIDERS: PCP Family Medicine; Referring Provider Family Medicine; Visit Provider Family Medicine
DX: E03.9 Hypothyroidism, unspecified (principal); E11.9 Type 2 diabetes mellitus without complications; E78.00 Pure hypercholesterolemia, unspecified
CPT/HCPCS: 36415; 80053; 80061; 84439; 84443

== ENCOUNTER → 2022-09-26 15:19 | Outpatient (CLI) | payer OTHER, SELFPAY ==
--- NOTE | 2022-09-26 15:21 | DI.MG.S_ITS ---
BILATERAL DIGITAL SCREENING MAMMOGRAM 3D/2D WITH CAD: 09/26/2022 CLINICAL: Routine screening. Family history of breast cancer. Comparison is made to exams dated: 07/17/2019 mammogram, 01/02/2018 mammogram, and 12/29/2015 mammogram - [facility]. Both breasts are almost entirely fatty (category a/<25% glandular tissue). Current study was also evaluated with a Computer Aided Detection (CAD) system. There is a focal asymmetry in the right breast at 11 o'clock posterior depth. There is architectural distortion associated with the focal asymmetry. No other significant masses, calcifications, or other findings are seen in either breast. IMPRESSION: INCOMPLETE: NEEDS ADDITIONAL IMAGING EVALUATION The focal asymmetry in the right breast is indeterminate. Additional views with possible ultrasound are recommended. Based on the Tyrer Cuzick model (a risk assessment model) the patient's lifetime risk is 5.3% and her 10 year risk is 1.9%. According to the ACR, ACS, and NCCN guidelines, an annual breast MRI exam along with mammogram is recommended if the patient's lifetime risk is 20% or greater. This exam was interpreted at Station ID: [id number]. NOTE: For mammograms, a report in lay terms will be sent to the patient. Approximately 15% of breast malignancies will not be visualized mammographically. In the management of a palpable breast mass, a negative mammogram must not discourage biopsy of a clinically suspicious lesion. Electronically Signed By: Nora martini/wild:09/26/2022 16:52:24 letter sent: Additional Imaging Needed ACR BI-RADS Category 0: Incomplete 3340F
== END ==
PROVIDERS: PCP Family Medicine; Referring Provider Family Medicine; Visit Provider Family Medicine
DX: Z12.31 Encounter for screening mammogram for malignant neoplasm of breast (principal); Z80.3 Family history of malignant neoplasm of breast
CPT/HCPCS: 77063; 77067

== ENCOUNTER → 2022-10-19 09:37 | Outpatient (CLI) | payer OTHER, SELFPAY ==
--- NOTE | 2022-10-19 09:37 | DI.US.S_ITS ---
ULTRASOUND OF RIGHT BREAST: 10/19/2022 CLINICAL: Patient returns today to evaluate an asymmetry in the right breast. Comparison is made to exams dated: 10/19/2022 mammogram, 09/26/2022 mammogram, 07/17/2019 mammogram, and 01/02/2018 mammogram - [facility]. Color flow and real-time ultrasound of the right breast were performed. Ordoñez scale images of the real-time examination were reviewed. In the right breast 11:00 position 12 cm from the nipple there is a 0.9 x 0.4 x 0.5 cm lymph node which does not correspond with the mammographic abnormality. IMPRESSION: SUSPICIOUS OF MALIGNANCY There is no abnormality seen in the right breast to correspond with the architectural distortion and mass at 11 o'clock. On mammogram there is a new mass with a spiculated margin in the right breast at 11 o'clock posterior depth. Given the mammographic findings and the lack of corresponding ultrasound findings, recommend stereo biopsy. This exam was interpreted at Station ID: [id number]. Electronically Signed By: Shaggy Edwards M.D. acr/:10/19/2022 13:53:27 letter sent: Biopsy Required Ultrasound BI-RADS: 4b Moderate suspicion of malignancy
--- NOTE | 2022-10-19 09:37 | DI.MG.S_ITS ---
UNILATERAL RIGHT DIGITAL DIAGNOSTIC MAMMOGRAM 3D/2D WITH ADDITIONAL VIEWS: 10/19/2022 CLINICAL: Additional evaluation requested from prior study. Comparison is made to exams dated: 09/26/2022 mammogram, 07/17/2019 mammogram, and 01/02/2018 mammogram - [facility]. The right breast is almost entirely fatty (category a/<25% glandular tissue). There is a new mass with a spiculated margin in the right breast at 11 o'clock posterior depth. This is seen in additional views. There is architectural distortion associated with the mass. No other significant masses or calcifications are seen in the breast. IMPRESSION: INCOMPLETE: NEEDS ADDITIONAL IMAGING EVALUATION The new mass in the right breast is indeterminate. An ultrasound is recommended. US will be performed and dictated separately. Based on the Tyrer Cuzick model (a risk assessment model) the patient's lifetime risk is 5.3% and her 10 year risk is 1.9%. According to the ACR, ACS, and NCCN guidelines, an annual breast MRI exam along with mammogram is recommended if the patient's lifetime risk is 20% or greater. This exam was interpreted at Station ID: [id number]. NOTE: For mammograms, a report in lay terms will be sent to the patient. Approximately 15% of breast malignancies will not be visualized mammographically. In the management of a palpable breast mass, a negative mammogram must not discourage biopsy of a clinically suspicious lesion. Electronically Signed By: Shaggy Edwards M.D. acr/:10/19/2022 10:32:52 ACR BI-RADS Category 0: Incomplete 3340F
== END ==
PROVIDERS: PCP Family Medicine; Referring Provider Family Medicine; Visit Provider Family Medicine
DX: R92.8 Other abnormal and inconclusive findings on diagnostic imaging of breast (principal); N63.11 Unspecified lump in the right breast, upper outer quadrant
CPT/HCPCS: 76642; 77065; G0279

== ENCOUNTER → 2022-12-05 08:31 | Outpatient (CLI) | payer OTHER, SELFPAY ==
--- NOTE | 2022-12-05 08:32 | DI.US.S_ITS ---
ULTRASOUND OF RIGHT BREAST: 12/05/2022 CLINICAL: Right intramammary node biopsy. Comparison is made to exams dated: 11/03/2022 stereotactic biopsy - [facility], 10/19/2022 ultrasound, 10/19/2022 mammogram, 09/26/2022 mammogram, 07/17/2019 mammogram, and 01/02/2018 mammogram - [facility]. Real-time ultrasound of the right breast was performed on the area of interest. Ultrasound was performed of the right breast and axilla. The 0.9 x 0.4 x 0.5 cm intramammary lymph node in the right breast seen on the last exam is not identified today. Normal sized right axillary lymph nodes are noted, demonstrating normal morphology and thin cortex. IMPRESSION: KNOWN BIOPSY PROVEN MALIGNANCY The patient is here for biopsy of a small intramammary lymph node in the right breast. The lymph node seen on the previous ultrasound exam is not identified today. Unable to perform biopsy. Attempts were made to contract Dr. Lewis (office and paging). Unable to reaach Dr. Lewis by repeated attempts. This exam was interpreted at Station ID: [id number]. Electronically Signed By: Sixto Brannon M.D. fx/:12/05/2022 10:39:36 Ultrasound BI-RADS: 6 Known biopsy proven malignancy
== END ==
PROVIDERS: PCP Family Medicine; Referring Provider Surgery; Visit Provider Surgery
DX: C50.411 Malignant neoplasm of upper-outer quadrant of right female breast (principal); R59.0 Localized enlarged lymph nodes
CPT/HCPCS: 76642

== ENCOUNTER → 2023-01-03 06:58 | Outpatient (CLI) | payer OTHER, SELFPAY ==
--- NOTE | 2023-01-03 07:02 | DI.NM.S_ITS ---
PROCEDURE: NM SENTINEL NODE INJECT ONLY RADIOPHARMACEUTICAL: 0.5-1.0 mCi Millipore filtered Tc-99m sulfur colloid. INDICATIONS: right lumpectomy with sentinel node biopsy COMPARISON: [facility], MG, MG DIGITAL BREAST TOMOSYNTHESIS BREAST BIOPSY RIGHT, 11/03/2022, 9:19. [facility], BREAST RT LIMITED, 12/05/2022, 8:49. PROCEDURE: The area around the nipple was prepped and draped in a sterile fashion. Tc-99m sulfur colloid was injected intra-dermally around the outer edge of the areola in the right, left breast. No image was obtained. IMPRESSION: Administration of radiotracer into the right breast periareolar region for intra-operative sentinel lymph node localization. Dictated by: Sixto Brannon M.D. on 01/03/2023 at 8:38 Approved by: Sixto Brannon M.D. on 01/03/2023 at 8:39
== END ==
PROVIDERS: PCP Family Medicine; Referring Provider Surgery; Visit Provider Surgery
DX: C50.411 Malignant neoplasm of upper-outer quadrant of right female breast (principal)
CPT/HCPCS: 38792; A9541

== ENCOUNTER 2023-01-03 07:03 | Day surgery (SDC) | payer OTHER, SELFPAY ==
[2022-12-18 12:34] VITALS: BMI 46.7
--- NOTE | 2023-01-03 | DI.MG.S_ITS ---
DIGITAL TOMOGRAPHIC MAMMOGRAPHY GUIDED WIRE LOCALIZATION RIGHT BREAST WITH POST DIGITAL MAMMOGRAPHIC IMAGIN01/03/2023 CLINICAL: Malignant neoplasm of the right breast. Correlation is made to exams dated: 12/05/2022 ultrasound - [facility], 11/03/2022 stereotactic biopsy - [facility], 10/19/2022 ultrasound, 10/19/2022 mammogram, and 09/26/2022 mammogram - [facility]. A wire localization was performed for the marker clip located in the right breast at 11 o'clock posterior depth. This was described on the previous mammography report. The skin was prepped in the usual manner. Local anesthetic was administered to the access site. The localization was approached from the craniocaudal aspect using an upright digital tomographic mammography unit. Two J-hook wires were inserted into the targeted area. The first wire was inadvertently advanced too deep when push pulling the needle. Post placement digital mammographic imaging demonstrates the thickened portion of the wire 0.7cm anterior from the geometric center of the targeted area. IMPRESSION: WIRE LOCALIZATION Wire localization for the marker clip in the right breast at 11 o'clock posterior depth with placement of two wires was successful. A piece of tape was wrapped around the correct wire. The first wire was advanced too deep. Exam findings were discussed with Dr. Lewis shortly after the procedure. This exam was interpreted at Station ID: [id number]. Ernesto Govea M.D. [facility] [place]/:01/04/2023 11:52:39 Entry: - 01/04/2023 11:52:39
--- NOTE | 2023-01-03 | DI.MG.S_ITS ---
SPECIMEN: 01/03/2023 CLINICAL: Right specimen. Correlation is made to exams dated: 01/03/2023 localization - [facility], 11/03/2022 stereotactic biopsy - [facility], and 10/19/2022 mammogram - [facility]. Right breast lumpectomy specimen contains the biopsy clip and localization wires. IMPRESSION: SPECIMEN Right breast lumpectomy specimen contains the biopsy clip. Report called to operating room. This exam was interpreted at Station ID: [id number]. Ernesto Govea M.D. [facility]/:01/03/2023 11:17:01
--- NOTE | 2023-01-03 | PATH_ITS ---
[facility] Accession Number: [id number] No. of containers..02 Tissue . 01 Material submitted: . PART A: breast - RIGHT BREAST LUMP PART B: lymph node - SENTINEL NODE BIOPSY . 01 Clinical history: . A) GREEN=ANTERIOR, BLUE = INFERIOR, ORANGE = LATERAL. YELLOW = MEDIAL, POSTERIOR = BLACK, RED=SUPERIOR . 01 Diagnosis: A. Right Breast, Lumpectomy: Invasive (ductal) carcinoma, grade 2 of 3 (Hawks combined histologic grade, total score 6/9) with the following features: 1. Tumor size (invasive component): 9 mm by microscopic measurement. 2. Nuclear pleomorphism: High. (3/3) 3. Mitotic rate: Low. (1/3) 4. Tumor differentiation: Majority of tumor. (2/3) 5. Ductal carcinoma in situ (DCIS): Present, involving 2 blocks corresponding to tissue slices 7 and 9, spanning approximately 6 mm, and with the following characteristics: - Architecture: micropapillary and flat. - Nuclear grade: intermediate to high. 6. Calcifications: Not identified. 7. Lymphatic invasion: Not identified. 8. Resection margins: - Invasive carcinoma: Negative (2 mm or more from all margins). - DCIS: Focally present at inked lateral margin (block A2), and is 2 mm or more from the remaining margins. 9. Prognostic markers (as reported on the prior biopsy [facility], [id number], ), with the following results: - Estrogen receptor status: Positive. - Progesterone receptor status: Positive. - HER2 status: Negative for protein overexpression by immunohistochemistry (1+). - HER2: repeated on block A4 with equivocal results by IHC (2+); FISH studies are pending and results will be reported in an addendum. 10. Regional lymph node status (see part B below): - Five sentinel lymph nodes, negative for malignancy (0/5). 11. Additional findings: - Biopsy site changes are present. - Skin, nipple, and skeletal muscle are not present. 12. Pathologic stage: pT1b pN0(sn) . B. [place] Lymph Nodes, Biopsy: Five lymph nodes, negative for malignancy (0/5). [facility] 01/11/2023 0507 Local . 01 Electronically signed: . Evelin Luis MD, Pathologist NPI- [id number] . 01 Gross description: . A. Received: In formalin labeled with the patient's name, , and R breast lump. Specimen: An oriented right lumpectomy. Weight: 52 g. Measurement: 7.5 cm from superior to inferior, 5.8 cm from medial to lateral, and 2.7 cm from anterior to posterior. Skin ellipse: Absent. Wire: Two wires present, one appears to enter anteriorly and terminate inferiorly while the second appears to enter medially and terminate anteriorly. Margins: Inked by the surgeon as follows: Green anterior, blue inferior, orange lateral, yellow medial, posterior black, red superior, a short suture designating superior within the red ink and a long suture designating lateral within the orange ink per the operative note. Inking reinforced at the bench. Sliced: From superior to inferior into thirteen 3-mm slices. Lesion: Description: Ill-defined, macdonald, hard lesion. Size: 1.0 x 1.0 x 0.7 cm. Slices involved: Slice 9. Biopsy site: A coil biopsy clip is found within the lesion in slice 9. Distance to margins: 0.5 cm from the nearest orange margin, 0.9 cm from the black margin, 0.6 cm from the green margin, and greater than 1 cm from all remaining margins. Other: The remaining cut surfaces are yellow to white fibroadipose tissue with white fibrous tissue occupying approximately 10% of the cut surface with no additional lesions or biopsy sites identified. Fixation time: The specimen was removed on 01/03/2023, time not provided, cold ischemic time cannot be calculated, total fixation time is approximately 66 hours. Hvac R Tech sections are submitted as follows: A1: Hvac R Tech slice 1 perpendicular. A2: Hvac R Tech slice 7 no lesion to include orange and black margins. A3: Hvac R Tech slice 8 no lesion to include orange, black, and green margins. A4-A5: Entire composite slice 9 to include entire lesion and biopsy site. A6: Hvac R Tech slice 10 to include orange and black margins, no lesion. A7: Hvac R Tech slice 11 to include orange and green margins, no lesion. A8: Hvac R Tech slice 13 perpendicular. B. Received in formalin, labeled with the patient's name, , and sentinel node biopsy, and consists of multiple fragments of yellow, lobulated adipose tissue aggregating to 6.7 x 6.2 x 2.1 cm. Palpation reveals five lymph node candidates ranging from 0.3 cm to 1.6 cm in greatest dimension. The lymph node candidates are submitted as follows: B1: Single serially sectioned lymph node candidate. B2: Single intact lymph node candidate. B3: Two intact lymph node candidates. B4: Single intact lymph node candidate. The specimen was removed on 01/03/2023, time not provided, cold ischemic time cannot be calculated, total fixation time is approximately 66 hours. ([id number]) /[facility] 01/11/2023 0450 Local . 01 Microscopic: . A panel of immunohistochemical stains is performed in order to assess the invasive carcinoma, with appropriately staining external controls. Crushing artifact limits assessment of the tumor. . In block A2, p63 and smooth muscle myosin are performed to evaluate atypical glands close to the margin, and show retention of both myoepithelial markers, in support of the diagnosis. . Her2 predictive marker immunohistochemical study is repeated on block A4 of this excision specimen, and shows the following results: . Her2 (4B5): Equivocal for protein overexpression (2+); FISH studies for Her2 gene amplification are pending and results will be reported in an addendum. . The scoring criteria for breast biomarkers by immunohistochemistry is based on the ASCO/CAP guidelines (Bessy AC et al, J Clin Oncol: 2018 Feb 10;36(20):3190-7628 and Ezekiel ME et al, Arch Pathol Lab Med: 2009;134(6):907-22). Deparaffinized sections of formalin fixed tissue (along with appropriate positive controls) are incubated with the above antibody(s). Using the automated Relampago stainer, tissue is incubated with the designated antibody which is then localized by a non-biotin, dual polymer detection system. The external controls are reviewed for appropriate reactivity and found to be adequate. Results on the target cell population are indicated above. These tests have not been validated on decalcified tissue. This test was developed and its performance characteristics determined by [employer]. It has not been cleared or approved by the U.S. Food and Drug Administration. The FDA has determined that such clearance or approval is not necessary. This test is used for clinical purposes. It should not be regarded as investigational or for research. . 01 Pathologist provided ICD-10: C50.411 . 01 CPT . 635762, 505861, 165100, M93513, Z00326 Specimen Comment: A courtesy copy of this report has been sent to [phone] Performed at: 01 [facility] [address] [place] [address] [id number] MD Sergey Terrell MD Phone: [phone]
[2023-01-03 07:31] VITALS: BMI 46.7
[2023-01-03 08:08] VITALS: BP 128/78; PULSE 77; RESP 19; TEMP 36.4; O2SAT 96
--- NOTE | 2023-01-03 09:35 | P.HP_ITS ---
History of Present Illness History of Present Illness Date Patient Seen: 01/03/23 Time Patient Seen: 09:35 Chief complaint: [facility] Narrative: 57 y.o woman with right breast cancer here for R lumpectomy with sentinel lymph node biopsy. No interval changes in health. Successful wire needle localization today. [facility] Medical History (Updated 11/25/22 @ 16:45 by Claudio Lewis MD) Fractures Heart murmur Hyperglycemia Hyperlipemia Hypothyroidism (03/02/11) Low back pain Migraine headache Pneumonia Scarlet fever Seasonal allergic rhinitis Seborrheic keratoses, inflamed Type 2 diabetes mellitus Well adult exam Surgical History (Updated 12/18/22 @ 12:42 by Marline Vuong RN) Hx of breast biopsy (11/03/22) No history of previous surgery Family History Grandmother Breast cancer Social History (Updated 11/24/22 @ 10:45 by Camelia Oropeza MA) marital status: household members: spouse lives independently: Yes occupational status: employed Smoking Status: Former smoker Tobacco: How many years used: 8 second hand exposure: No alcohol intake: never substance use type: marijuana Meds Home Medications and Allergies Home Medications Medication Instructions Recorded Confirmed Type fluticasone propionate 50 1 spray intranasal DAILY PRN 03/25/19 01/03/23 History mcg/actuation nasal Allergic Symptoms spray,suspension (Flonase Allergy Relief) blood sugar diagnostic (Blood #50 ea 06/09/21 11/24/22 Rx Glucose Test strips) blood-glucose meter #1 ea 06/09/21 11/24/22 Rx lancets 32 gauge (Easy Touch #100 ea 06/09/21 11/24/22 Rx Lancets) levothyroxine 200 mcg tablet 200 mcg PO DAILY #90 tabs 06/24/22 01/03/23 Rx metformin 500 mg tablet 500 mg PO BID #180 tabs 07/10/22 01/03/23 Rx Allergies Allergy/AdvReac Type Severity Reaction Status Date / Time adhesive Allergy Severe HIVES Verified 01/03/23 07:25 bacitracin Allergy Severe Hives/ Rash Verified 01/03/23 07:25 latex Allergy Severe HIVES Verified 01/03/23 07:25 neomycin Allergy Severe Hives/ Rash Verified 01/03/23 07:25 polymyxin B Allergy Severe Hives/ Rash Verified 01/03/23 07:25 shellfish derived Allergy Mild ITCHING Verified 01/03/23 07:25 ALL OVER BODY Penicillins Allergy Unknown I was Verified 01/03/23 07:25 told that. I was a child when it happened. Sulfa (Sulfonamide Allergy Unknown makes me Verified 01/03/23 07:25 Antibiotics) more sick. I can't remember how bad. Exam Vital Signs (past 8 hours): - 01/03/23 08:08 Temperature 97.5 F L Pulse Rate 77 Respiratory Rate 19 Blood Pressure 128/78 Pulse Oximetry 96 Oxygen Delivery Method Room Air Oxygen Delivery Method Room Air Narrative Exam Narrative: Gen-Adult woman alert and oriented Chest-R breast marked with my initials. Assessment & Plan Assessment and plan (1) Breast cancer of upper-outer quadrant of right female breast: Qualifiers: Estrogen receptor status: positive Qualified Code(s): C50.411 - Malignant neoplasm of upper-outer quadrant of right female breast; Z17.0 - Estrogen receptor positive status [ER+] Status: Acute Assessment & Plan narrative: 57 F with right breast cancer here for right lumpectomy and sentinel lymph node biopsy. Questions have been answered. She provides her written and verbal consent to proceed.
[2023-01-03] MEDS: CLINDAMYCIN 900 MG/50 ML PIGGYBACK 50 MG IV (10:05)
--- NOTE | 2023-01-03 10:35 | SUR.OPER ---
Supine on padded OR bed, head on pillow, arms secured on padded arm boards at <90 degrees abduction, legs uncrossed, safety belt at thigh, tape over blanket over lower legs.
[2023-01-03] MEDS: BUPIVACAINE 0.5% (PF) 30 ML, EPINEPHrine 0.15 MG INJ (10:40)
[2023-01-03 11:39] VITALS: BP 141/94; PULSE 85; RESP 18; TEMP 36.1; O2SAT 94
[2023-01-03 11:44] VITALS: BP 139/82; PULSE 72; RESP 12; O2SAT 94
[2023-01-03 11:49] VITALS: BP 135/81; PULSE 68; RESP 12; O2SAT 96
[2023-01-03 11:54] VITALS: BP 135/76; PULSE 72; RESP 18; O2SAT 94
[2023-01-03] MEDS: KETOROLAC 30 MG/ML VIAL IV (11:55)
[2023-01-03] MEDS: OXYCODONE/ACETAMINOPHEN 5/325 TABLET 1 TAB PO (11:56)
[2023-01-03 12:01] VITALS: BP 144/94; PULSE 67; RESP 14; O2SAT 96
--- NOTE | 2023-01-03 15:11 | PM.OP.1 ---
Operative Date/Time/Diagnoses Date of procedure: 01/03/23 Time of procedure: 15:11 Pre-op diagnosis: Right breast cancer Post-op diagnosis: same Procedure & Clinicians Procedure: Right lumpectomy with sentinel lymph node biopsy Same procedure as scheduled: Yes Indications: 57F with a small invasive ductal carcinoma hormone receptor positive HER2 neg here for lumpectomy and SLNB. Surgeon: Claudio Lewis Web Applications Developer: Dany Schuster Anesthesia Type: General Operative Notes Findings: 1 cm breast mass. Wire and clip is identified within the specimen. slightly prominent axillary nodes Specimen(s): other (R lumpectomy, R sentinel lymph nodes) Estimated Blood Loss (mL): 20 Procedure in detail: The patient underwent needle localized prior to the operation. They were brought to the operating room and placed supine on the table. Bilateral lower extremity compression devices were applied. They were intubated with an LMA. 1 ml of methlyene blue mixed w 4 ml saline was injected into the dermal space around the areola and massaged into the tissue for 5 minutes. They were prepped and draped in sterile fashion. Time-out was performed. A curvilinear incision on the superior aspect of the right breast was made and subcutaneous tissues were divided. The localizing wire was identified and then brought back within the incision. The end of the wire was within a posterior depth breast mass. The mass was excised with the wire and the clip. Specimen was marked short stitch superior long stitch lateral and painted with the appropriate colors. Imaging demonstrated that the specimen contained the wire and the associated clip. Two clips placed at the site of the breast excision. Through the same incision we are able to reach the right axilla. The axilla was bluntly explored. We identified 3 slightly prominent lymph nodes with streaks of blue within the lymphatics with elevated counts. These sentinel lymph nodes were excised after clipping the lymphatics. The 10 second counts were 2249, 658 and 605. The neoprobe was returned to the axillia and there was no further significant background counts. The subcutaneous tissue was closed with 3 0 Vicryl sutures skin closed with Monocryl followed by application of Dermabond. The counts were correct. They emerged from anesthesia and were transferred to recovery in stable condition. Complications: none Post-operative Condition: stable Disposition: same day surgery
== END 2023-01-03 12:40 | disposition home or self-care (01) ==
PROVIDERS: PCP Family Medicine; Referring Provider Surgery; Visit Provider Surgery
PROC: (CPT 19301; principal; 2023-01-03 09:45)
DX: C50.411 Malignant neoplasm of upper-outer quadrant of right female breast (principal); Z17.0 Estrogen receptor positive status [ER+]
CPT/HCPCS: 38500; 19125; 19281; 38792; 76098; A9541; C1819; J0171; J1100; J1885; J2250; J2405; J2704; J3010

== ENCOUNTER 2023-01-17 10:46 | Day surgery (SDC) | payer OTHER, SELFPAY ==
[2023-01-16 07:54] VITALS: BMI 47.7
[2023-01-17] VITALS (7 sets, daily range): BP systolic 136–155; BP diastolic 69–78; PULSE 63–74; RESP 10–16; TEMP 36.1–36.4; O2SAT 95–98; BMI 47.7
--- NOTE | 2023-01-17 | PATH_ITS ---
[facility] Accession Number: [id number] No. of containers..01 Tissue . 01 Material submitted: . breast - RIGHT BREAST TISSUE . 01 Diagnosis: Right Breast, Re-excision: Breast tissue with previous biopsy site changes. -Negative for residual in situ or invasive ductal carcinoma. -Negative for significant epithelial hyperplasia or atypia. [facility] 01/19/2023 1802 Local . 01 Electronically signed: . Mely Patton MD, Pathologist NPI- [id number] . 01 Gross description: . Received: In formalin, labeled with the patient's name, , and right breast tissue, short stitch superior, long stitch lateral, ink french anterior margin. Specimen: A right oriented lumpectomy. Weight: 14 grams. Measurement: 5.0 cm from superior to inferior, 4.7 cm from medial to lateral, 1.3 cm from anterior to posterior. Skin Ellipse: Absent. Wire: Absent. Margins: Oriented with a short suture designating superior, a long suture designating lateral, and faint dark ink on one surface designating the anterior margin, per the requisition. The specimen is inked as follows: Anterior yellow, posterior black, medial blue, lateral green. superior orange, and inferior red. Sliced: From superior to inferior into ten 3 mm slices. Lesion: An ill-defined yellow-macdonald firm lesion. Size: 1.5 x 1.2 x 1.0 cm. Slices involved: Slices 1 and 2. Biopsy Site: Not identified; however, an external clip consistent with a hemoclip is identified on the exterior surface at the blue margin of slice 7. Distance to Margins: The lesion grossly approaches the orange, blue, and black margins. Other: The remaining cut surfaces are yellow to white fibroadipose tissue with fibrous tissue occupying approximately 20% of the cut surface. No additional discrete lesions are identified. Fixation Time: The specimen was removed on 01/17/2023. Time in formalin not provided. Cold ischemic time cannot be calculated. Total fixation time is approximately 33 hours. The specimen is submitted entirely as follows: A1-A2: Entire first fragment perpendicular. A3: Slice 2. A4: Slice 3. A5: Slice 4. A6: Slice 5. A7: Slice 6. A8-A9: Entire composite slice 6. A10-All: Entire composite slice 8. A12-A13: Entire composite slice 9. A14-A16: Entire slice 10 perpendicular. ([id number]) /[facility] 01/18/2023 [facility] Local . 01 Pathologist provided ICD-10: C50.911 . 01 CPT . 131420 Specimen Comment: A courtesy copy of this report has been sent to [phone] Performed at: 01 [facility] [address] [place] [address], [place], [place] [id number] MD Sergey Terrell MD Phone: [phone]
[2023-01-17] MEDS: LACTATED RINGERS 1,000 ML 100 ML IV (11:23)
--- NOTE | 2023-01-17 11:55 | PM.PREOP ---
Pre-operative Note Interval Note History & Physical reviewed/Exam performed by Physician: Yes Changes to H&P: No
[2023-01-17] MEDS: CLINDAMYCIN 900 MG/50 ML PIGGYBACK 50 MG IV (12:20)
--- NOTE | 2023-01-17 12:28 | SUR.OPER ---
Supine on padded OR bed, head on pillow, arms secured on padded arm boards at <90 degrees abduction, legs uncrossed, safety belt at thigh, tape over blanket over lower legs. Pillow under knees.
[2023-01-17] MEDS: BUPIVACAINE 0.25% (PF) VIAL 30 ML INJ (12:33)
--- NOTE | 2023-01-17 12:47 | PM.OP.1 ---
Operative Date/Time/Diagnoses Date of procedure: 01/17/23 Time of procedure: 12:47 Pre-op diagnosis: Breast cancer Positive margin Post-op diagnosis: same Procedure & Clinicians Procedure: Re-excision of lumpectomy margin Same procedure as scheduled: Yes Indications: Ronald is a 57-year-old woman with right breast cancer who underwent lumpectomy last week. Margins for carcinoma are all negative however DCIS was within the lateral margin at the ink and she is here for re-excision of margin. Surgeon: Claudio Lewis Artisan Plasterer: Dany Schuster Anesthesia Type: General Operative Notes Findings: Small seroma within the wound cavity Specimen(s): other (Lateral margin. Short stitch superior, long stitch lateral, inked on anterior surface) Estimated Blood Loss (mL): 20 Procedure in detail: Patient was brought to the operating room placed supine on the table. Bilateral lower extremity compression devices were applied. General anesthesia was induced and she was intubated with a LMA. She received clindamycin prior to skin incision. Time-out was performed. She was prepped and draped in sterile fashion. The previous incision was opened sharply. The cavity was explored and there was a small seroma within it which was suctioned out. The lateral margin of the cavity was unremarkable. This lateral margin was grasped and then excised. The specimen was oriented short stitch superior long stitch lateral and the anterior surface was inked. The cavity was then reapproximated using Vicryl and the skin was closed with a running Monocryl followed by Dermabond. She tolerated the procedure well and was transferred to recovery in stable condition. Complications: none Post-operative Condition: stable Disposition: same day surgery
== END 2023-01-17 13:38 | disposition home or self-care (01) ==
PROVIDERS: PCP Family Medicine; Referring Provider Surgery; Visit Provider Surgery
PROC: (CPT 19301; principal; 2023-01-17 12:15)
DX: C50.911 Malignant neoplasm of unspecified site of right female breast (principal); Z17.0 Estrogen receptor positive status [ER+]; M96.843 Postprocedural seroma of a musculoskeletal structure following other procedure
CPT/HCPCS: 19301; 82962; J1100; J2405; J2704; J3010

== ENCOUNTER → 2023-01-25 08:26 | Outpatient (CLI) | payer OTHER, SELFPAY ==
[2023-01-25 10:19] LABS: Add Manual Diff / Slide Review NO; Basophils Absolute Auto 0 /uL (0-100); Basophils Percent Auto 0.6 % (0-2); Eosinophils Absolute Auto 100 /uL (0-450); Eosinophils Percent Auto 1.4 % (2-4); Hemoglobin 14.3 g/dL (12.0-16.0); Lymphocytes Absolute Auto 1700 /uL (1100-4500); Lymphocytes Percent Auto 33.4 % (25-40); Mean Corpuscular HGB Conc 33.4 % (30-36); Mean Corpuscular Hemoglobin 27.5 PG (26-34); Mean Corpuscular Volume 82.3 fL (80-100); Monocytes Absolute Auto 400 /uL (0-900); Neutrophils Absolute Auto 3000 /uL (1500-7000); Neutrophils Percent Auto 57.6 % (50-75); Platelet Count 214 X10^3/uL (150-400); Red Blood Cell Count 5.22 X10^6/uL (4.0-5.2); White Blood Cell Count 5.2 X10^3/uL (4.5-11.0)
[2023-01-26 03:05] LABS: Labcorp Hemoglobin (Hb) A1c 6.3 % (4.8-5.6)
== END ==
PROVIDERS: PCP Family Medicine; Referring Provider Family Medicine; Visit Provider Family Medicine
DX: E11.9 Type 2 diabetes mellitus without complications (principal)
CPT/HCPCS: 36415; 83036; 85025

== ENCOUNTER → 2023-02-15 09:09 | Outpatient (CLI) | payer OTHER, SELFPAY ==
--- NOTE | 2023-02-15 09:10 | DI.ECHO.S_ITS ---
[facility]---------+ [facility] +---------+ : : [address] : : : : [id number] : : : : Phone: [phone]+ Echocardiogram Report + + :Name: JOIE BAZZI Study Date: 02/15/2023 Height: 62 in : :[facility] : Weight: 260 lb : : Gender: Female BSA: 2.1 m2 : :: 1965 Age: 57 yrs BP: 133/77 mmHg: :Reason For Study: HEART MURMUR : :Ordering Physician: : :HELEN ZIMMERMAN D.O. Performed By: Joyce Colon : :Referring: AMITA DUMONT : + + Interpretation Summary 1) Normal left ventricular thickness, size, wall motion, and systolic function (EF 60-65%). 2) Normal right ventricular size and function. 3) There is moderate aortic stenosis (valve area 1.1cm2, mean gradient 24mmHg, severity ratio 0.3). 4) Compared to the Echo done 07/21/2021, moderate aortic stenosis is present on this study. Procedure: A two-dimensional transthoracic echocardiogram with color flow and Doppler was performed. The study quality was technically adequate. Comparison is made with the echocardiogram of 07/21/2021. The heart rate ranged between 44-79 bpm during the study. The patient had frequent PVCs during the exam. Segments of bigeminy visualized. Left Ventricle: The left ventricle is normal in size and wall thickness. The ejection fraction is estimated to be 60-65%. Left ventricular systolic function appears normal without focal wall motion abnormalities. Right Ventricle: The right ventricle is normal in size and function. Atria: The left atrial size is normal. Right atrial size is normal. There is no Doppler evidence for an interatrial shunt. Mitral Valve: The mitral valve is normal in structure and function. There is trace mitral regurgitation. Aortic Valve: The aortic valve is trileaflet. The aortic valve is moderately calcified. There is moderate aortic stenosis. The peak aortic velocity is 3.1 m/sec. The aortic valve mean gradient is 24 mmHg. The calculated aortic valve area is 1.1 cm2. No aortic regurgitation is present. Tricuspid Valve: The tricuspid valve is normal in structure and function. There is trace tricuspid regurgitation. Pulmonic Valve: The pulmonic valve is not well visualized. There is no pulmonic valvular regurgitation. Great Vessels: The aortic root is normal size. The dimensions of the ascending aorta are normal. The IVC is of normal diameter and collapses greater than 50% with a sniff. This suggests a low right atrial pressure of 3 mm Hg. Pericardium/ Pleura There is no pericardial effusion. There is no pleural effusion. MMode/2D Measurements & Calculations LVIDd: 4.1 cm LVOT diam: 2.2 cm LVIDs: 3.1 cm Ao root diam: 2.9 cm FS: 25.0 % asc Aorta Diam: 3.7 cm IVSd: 0.96 cm Ao Arch Diam (Prox Trans): 3.2 cm LVPWd: 0.96 cm LV roth. diameter/BSA (cm/m^2): 1.9 LV sys. diameter/BSA (cm/m^2): 1.4 LA A2 area: 20.6 cm2 RA long axis: 5.1 cm LA A4 area: 18.5 cm2 RA area: 16.2 cm2 LA length (vol): 5.1 cm RA vol: 43.8 ml LA vol: 63.7 ml RA : 20.5 ml/m2 LA vol index: 29.8 ml/m2 IVC diam: 1.7 cm RVD1 (basal): 3.9 cm RVD2 (mid): 4.0 cm TAPSE: 2.0 cm Doppler Measurements & Calculations Ao V2 max: 313.4 cm/sec LVOT Max Roberto Carlos: 92.2 cm/sec Ao V2 mean: 220.6 cm/sec LV V1 max P.4 mmHg Ao max P.3 mmHg LV V1 VTI: 21.2 cm Ao mean P.5 mmHg SUAD(I,D): 1.2 cm2 Ao V2 VTI: 71.0 cm SUAD(V,D): 1.1 cm2 sev ratio: 0.30 SUAD indexed to BSA (cm^2/m^2): 0.54 MV E max roberto carlos: 80.5 cm/sec PA V2 max: 101.5 cm/sec MV A max roberto carlos: 119.9 cm/sec PA V2 mean: 73.8 cm/sec MV E/A: 0.67 PA mean P.4 mmHg Med Peak E' Roberto Carlos: 9.6 cm/sec PA pr(Accel): 31.0 mmHg E/E' med: 8.4 Lat Peak E' Roberto Carlos: 15.4 cm/sec E/E' lat: 5.2 E/e' average: 6.8 MV dec time: 0.29 sec SV(LVOT): 82.4 ml Reading Physician:12:38 PM
== END ==
PROVIDERS: PCP Family Medicine; Referring Provider Family Medicine; Visit Provider Family Medicine
DX: R01.1 Cardiac murmur, unspecified (principal); I35.0 Nonrheumatic aortic (valve) stenosis
CPT/HCPCS: 93306; 93356

== ENCOUNTER 2023-02-23 09:29 | Day surgery (SDC) | payer OTHER, SELFPAY ==
[2023-02-14 12:09] VITALS: BMI 47.7
[2023-02-23] VITALS (8 sets, daily range): BP systolic 137–151; BP diastolic 75–104; PULSE 68–82; RESP 9–19; TEMP 35.8–36.1; O2SAT 95–98; BMI 47.7
[2023-02-23] MEDS: LACTATED RINGERS 1,000 ML 100 ML IV (10:15)
--- NOTE | 2023-02-23 11:43 | P.HP_ITS ---
History of Present Illness History of Present Illness Date Patient Seen: 02/23/23 Time Patient Seen: 11:43 Chief complaint: [facility] [place] Narrative: Ms. Quinn is a 57-year-old woman with right breast cancer status post right breast lumpectomy with sentinel lymph node biopsy January 03, 2023.? DCIS was found in the lateral margin and therefore she returned to the operating room for re- excision of the margin which returned negative. Surgical pathology Invasive ductal carcinoma, grade 2/3, 9 mm, ER positive, CA positive HER2 negative.? 5 of 5 sentinel lymph nodes negative.? Margins are all negative. Oncotype Dx score 34 adjuvant chemotherapy has been recommended. She is here for port a cath placement today [facility] Medical History Fractures Heart murmur Hyperglycemia Hyperlipemia Hypothyroidism (03/02/11) Low back pain Migraine headache Pneumonia Scarlet fever Seasonal allergic rhinitis Seborrheic keratoses, inflamed Type 2 diabetes mellitus Well adult exam Surgical History (Updated 02/14/23 @ 23:14 by Orly Michaud MD) History of lumpectomy of right breast (01/03/23) History of surgery (01/17/23) Hx of breast biopsy (11/03/22) Family History Grandmother Breast cancer Social History marital status: household members: spouse lives independently: Yes occupational status: employed Smoking Status: Former smoker Tobacco: How many years used: 8 second hand exposure: No alcohol intake: never substance use type: marijuana Meds Home Medications and Allergies Home Medications Medication Instructions Recorded Confirmed Type fluticasone propionate 50 1 spray intranasal DAILY PRN 03/25/19 02/23/23 History mcg/actuation nasal Allergic Symptoms spray,suspension (Flonase Allergy Relief) blood sugar diagnostic (Blood #50 ea 06/09/21 02/13/23 Rx Glucose Test strips) blood-glucose meter #1 ea 06/09/21 02/13/23 Rx lancets 32 gauge (Easy Touch #100 ea 06/09/21 02/13/23 Rx Lancets) levothyroxine 200 mcg tablet 200 mcg PO DAILY #90 tabs 06/24/22 02/23/23 Rx metformin 500 mg tablet 500 mg PO BID #180 tabs 07/10/22 02/23/23 Rx acetaminophen 325 mg capsule 650 mg PO QID PRN pain #60 caps 01/03/23 02/23/23 Rx (Tylenol) Allergies Allergy/AdvReac Type Severity Reaction Status Date / Time adhesive Allergy Severe HIVES Verified 02/09/23 10:21 bacitracin Allergy Severe Hives/ Rash Verified 02/09/23 10:21 latex Allergy Severe HIVES Verified 02/09/23 10:21 neomycin Allergy Severe Hives/ Rash Verified 02/09/23 10:21 polymyxin B Allergy Severe Hives/ Rash Verified 02/09/23 10:21 shellfish derived Allergy Mild ITCHING Verified 02/09/23 10:21 ALL OVER BODY Penicillins Allergy Unknown I was Verified 02/09/23 10:21 told that. I was a child when it happened. Sulfa (Sulfonamide Allergy Unknown makes me Verified 02/09/23 10:21 Antibiotics) more sick. I can't remember how bad. Exam Vital Signs (past 8 hours): - 02/23/23 10:02 Temperature 96.5 F L Pulse Rate 82 Respiratory Rate 19 Blood Pressure 149/87 H Pulse Oximetry 97 Oxygen Delivery Method Room Air Oxygen Delivery Method Room Air Narrative Exam Narrative: Gen-Adult woman alert and oriented no distress Assessment & Plan Assessment and plan (1) Breast cancer of upper-outer quadrant of right female breast: Qualifiers: Estrogen receptor status: positive Qualified Code(s): C50.411 - Malignant neoplasm of upper-outer quadrant of right female breast; Z17.0 - Estrogen receptor positive status [ER+] Status: Chronic Assessment & Plan narrative: 57-year-old woman here for Port-A-Cath placement today, history of locally advanced right breast cancer. Overview of the procedure was discussed with the patient today. Operative risks including hemorrhage, infection, damage to surrounding structures, pneumothorax, embolism were discussed. Questions have been answered. She provides her written and verbal consent to proceed.
[2023-02-23] MEDS: CLINDAMYCIN 900 MG/50 ML PIGGYBACK 50 MG IV (12:20)
--- NOTE | 2023-02-23 12:44 | SUR.OPER ---
Supine on padded OR bed, head on gel doughnut with towel roll at scapula, , arms padded and tucked at sides, legs uncrossed, safety belt at thigh, tape over blanket over lower legs .
[2023-02-23] MEDS: HEPARIN 5,000 UNIT, SODIUM CHLORIDE 0.9% 50 ML IV (12:50)
[2023-02-23] MEDS: BUPIVACAINE 0.5% (PF) 10 ML VIAL INJ (12:51)
--- NOTE | 2023-02-23 13:30 | DI.RAD.S_ITS ---
PROCEDURE: XR CHEST 1V INDICATIONS: PORTACATH TECHNIQUE: One view of the chest was acquired. COMPARISON: [facility], CR, XR CHEST 1V, 07/12/2021, 12:46. FINDINGS: Surgical changes and devices: Right IJ MediPort is present. The tubing tip projects over the right atrium/cavoatrial junction. Right axillary surgical clips. Lungs and pleura: Low lung volumes. There is left lateral mid lung scarring. No pneumothorax. Mediastinum: Stable mild cardiomegaly. No central vascular congestion. Bones and chest wall: No suspicious bony lesions. Overlying soft tissues appear unremarkable. IMPRESSION: 1. Adequate position of right IJ MediPort. 2. No evidence of pneumothorax. Dictated by: Norma Gilliam M.D. on 02/23/2023 at 17:13 Approved by: Norma Gilliam M.D. on 02/23/2023 at 17:14
[2023-02-23] MEDS: OXYCODONE/ACETAMINOPHEN 5/325 TABLET 1 TAB PO (14:50)
--- NOTE | 2023-02-24 12:02 | P.OP_ITS ---
Operative Date/Time/Diagnoses Date of procedure: 02/24/23 Time of procedure: 12:03 Pre-op diagnosis: Locally advanced Breast cancer Post-op diagnosis: same Procedure & Clinicians Procedure: Port-A-Cath placement with ultrasound guidance Same procedure as scheduled: Yes Indications: Locally advanced right breast cancer with plan for adjuvant chemotherapy. Surgeon: Claudio Lewis Anesthesia Type: General Operative Notes Findings: Tip of the catheter within the SVC. No evidence of pneumothorax on postop chest x-ray Estimated Blood Loss (mL): 50 Procedure in detail: Patient was brought to the operating room placed supine on the table. General anesthesia was induced and she was intubated with an LMA. She was then prepped and draped in sterile fashion and received clindamycin prior to procedure start. Time-out was performed. We began by accessing the left internal jugular vein. The vein was accessed and a guidewire was threaded fluoroscopy demonstrated the wire was traveling superiorly as opposed to towards the heart. Despite multiple attempts at backing out the wire and repositioning we could not obtain appropriate access. An attempt was made to access the left subclavian vein and this was also unsuccessful. We next turned to the right neck. The right internal jugular was accessed under ultrasound guidance. The guidewire was then threaded through the needle in its appropriate position was confirmed with fluoroscopy. The vessel was then dilated and the catheter was placed through the dilator. An incision on the right chest wall was then made and the catheter was tunneled to the chest wall. The catheter was attached to the port and this was tested but it failed to draw or flush appropriately. Despite multiple at tempts at repositioning and manipulating the catheter it remained unsuccessful. We then repeated the access to the right internal jugular through the same process and this was successful. Ultimately the port was attached to the catheter and the port flushed and tarsha normally. The wounds were irrigated and then closed with 3-0 Vicryl followed by 4-0 Monocryl and Dermabond. The sponge and instrument count was correct and they were transferred to recovery in stable condition. Complications: none Post-operative Condition: stable Disposition: same day surgery
== END 2023-02-23 16:00 | disposition home or self-care (01) ==
PROVIDERS: PCP Family Medicine; Referring Provider Surgery; Visit Provider Surgery
PROC: (CPT 36561; principal; 2023-02-23 10:45)
DX: C50.911 Malignant neoplasm of unspecified site of right female breast (principal); Z17.0 Estrogen receptor positive status [ER+]
CPT/HCPCS: 36561; 71045; 76000; C1788; J1100; J1644; J1885; J2704; J3010

== ENCOUNTER → 2023-10-08 08:46 | Outpatient (CLI) | payer OTHER, SELFPAY ==
[2023-10-08 09:45] LABS: Alanine Aminotransferase 25 IU/L (<35); Albumin 4.1 g/dL (3.5-5.0); Albumin Globulin Ratio 1.5 (1.0-2.8); Alkaline Phosphatase 65 U/L (38-126); Aspartate Aminotransferase 24 IU/L (14-36); BUN Creatinine Ratio 34.5 (6-22); Bilirubin Total 0.7 mg/dL (0.2-1.3); Blood Urea Nitrogen 19 mg/dL (7-17); Calcium 9.6 mg/dL (8.4-10.2); Carbon Dioxide 27 mmol/L (22-32); Chloride 106 mmol/L (98-107); Cholesterol 203 mg/dL (140-199); Estimated Glomerular Filt Rate > 60 mL/min (>60); Globulin 2.7 g/dL (1.7-4.1); Glucose 133 mg/dL (70-100); HDL Cholesterol 57 mg/dL (40-60); HEMOLYSIS < 15 (0-50); LDL Cholesterol Calculated 121 mg/dL (<100); Potassium 4.6 mmol/L (3.4-5.1); Sodium 138 mmol/L (137-145); Total Protein 6.8 g/dL (6.3-8.2); Triglycerides 126 mg/dL (35-150)
[2023-10-08 10:00] LABS: Free T4, Direct Thyroxine 2.44 ng/dL (0.78-2.19)
[2023-10-08 10:14] LABS: Thyroid Stimulating Hormone < 0.015 uIU/mL (0.47-4.68)
[2023-10-09 11:11] LABS: Hemoglobin A1C% w Est Avg Glu 5.7 % (4.0-6.0)
== END ==
PROVIDERS: PCP Family Medicine; Referring Provider Family Medicine; Visit Provider Family Medicine
DX: E78.00 Pure hypercholesterolemia, unspecified (principal); E11.9 Type 2 diabetes mellitus without complications; E03.9 Hypothyroidism, unspecified
CPT/HCPCS: 36415; 80053; 80061; 83036; 84439; 84443

== ENCOUNTER → 2023-12-10 17:07 | Outpatient (CLI) | payer OTHER, SELFPAY | PROVIDERS: PCP Family Medicine; Visit Provider Nurse Practitioner Family | DX: J02.9 Acute pharyngitis, unspecified (principal) | CPT/HCPCS: 87070 ==

== ENCOUNTER → 2024-05-30 08:45 | Outpatient (CLI) | payer OTHER, SELFPAY ==
[2024-05-30 09:49] LABS: Hemoglobin A1C% w Est Avg Glu 6.2 % (4.0-6.0)
[2024-05-30 10:06] LABS: Alanine Aminotransferase 22 IU/L (<35); Albumin 4.2 g/dL (3.5-5.0); Albumin Globulin Ratio 1.9 (1.0-2.8); Alkaline Phosphatase 68 U/L (38-126); Aspartate Aminotransferase 23 IU/L (14-36); BUN Creatinine Ratio 28.3 (6-22); Bilirubin Total 0.5 mg/dL (0.2-1.3); Blood Urea Nitrogen 17 mg/dL (7-17); Calcium 9.7 mg/dL (8.4-10.2); Carbon Dioxide 30 mmol/L (22-32); Chloride 105 mmol/L (98-107); Estimated Glomerular Filt Rate > 60 mL/min (>60); Globulin 2.2 g/dL (1.7-4.1); Glucose 132 mg/dL (80-110); HEMOLYSIS < 15 (0-50); Potassium 4.5 mmol/L (3.4-5.1); Sodium 140 mmol/L (137-145); Total Protein 6.4 g/dL (6.3-8.2)
[2024-05-30 11:06] LABS: Free T4, Direct Thyroxine 1.65 ng/dL (0.78-2.19)
== END ==
PROVIDERS: PCP Family Medicine; Referring Provider Family Medicine; Visit Provider Family Medicine
DX: E11.9 Type 2 diabetes mellitus without complications (principal); E03.9 Hypothyroidism, unspecified; E78.00 Pure hypercholesterolemia, unspecified; C50.411 Malignant neoplasm of upper-outer quadrant of right female breast; Z17.0 Estrogen receptor positive status [ER+]
CPT/HCPCS: 36415; 80053; 83036; 84439; 84443

== ENCOUNTER → 2024-10-09 08:26 | Outpatient (CLI) | payer OTHER, SELFPAY ==
[2024-10-09 09:19] LABS: Hemoglobin A1C% w Est Avg Glu 5.2 % (4.0-6.0)
[2024-10-09 09:24] LABS: Alanine Aminotransferase 20 IU/L (<35); Albumin Globulin Ratio 1.8 (1.0-2.8); Alkaline Phosphatase 59 U/L (38-126); Aspartate Aminotransferase 21 IU/L (14-36); BUN Creatinine Ratio 29.3 (6-22); Bilirubin Total 0.6 mg/dL (0.2-1.3); Blood Urea Nitrogen 17 mg/dL (7-17); Calcium 8.8 mg/dL (8.4-10.2); Carbon Dioxide 22 mmol/L (22-32); Chloride 108 mmol/L (98-107); Cholesterol 165 mg/dL (140-199); Estimated Glomerular Filt Rate > 60 mL/min (>60); Globulin 2.2 g/dL (1.7-4.1); Glucose 151 mg/dL (80-110); HDL Cholesterol 58 mg/dL (40-60); HEMOLYSIS < 15 (0-50); LDL Cholesterol Calculated 83 mg/dL (<100); Potassium 4.2 mmol/L (3.4-5.1); Sodium 138 mmol/L (137-145); Total Protein 6.2 g/dL (6.3-8.2); Triglycerides 120 mg/dL (35-150)
[2024-10-09 09:44] LABS: Free T4, Direct Thyroxine 1.37 ng/dL (0.78-2.19)
[2024-10-09 09:58] LABS: Thyroid Stimulating Hormone 0.082 uIU/mL (0.47-4.68)
== END ==
PROVIDERS: PCP Family Medicine; Referring Provider Family Medicine; Visit Provider Family Medicine
DX: E78.5 Hyperlipidemia, unspecified (principal); E11.9 Type 2 diabetes mellitus without complications; E03.9 Hypothyroidism, unspecified
CPT/HCPCS: 36415; 80053; 80061; 83036; 84439; 84443

== ENCOUNTER 2025-04-12 09:29 | Emergency (ER) | payer OTHER, SELFPAY ==
[2025-04-12] VITALS (10 sets, daily range): BP systolic 145–169; BP diastolic 69–98; PULSE 67–89; RESP 12–23; TEMP 36.9; O2SAT 96–98; BMI 45.7
--- NOTE | 2025-04-12 09:32 | DI.RAD.S_ITS ---
PROCEDURE: XR CHEST 1V INDICATIONS: Chest Pain TECHNIQUE: One view of the chest was acquired. COMPARISON: [facility], CR, XR CHEST 1V, 02/23/2023, 14:38. FINDINGS: Surgical changes and devices: The previously seen chest port has been removed. Right axillary clips are seen. Lungs and pleura: An incomplete inspiratory result is noted, causing a crowded appearance to the lung markings. No focal infiltrates are seen. No pneumothorax or significant pleural effusions are seen. Mediastinum: The cardiac contours are within normal limits. The aorta demonstrates calcification and tortuosity. Bones and chest wall: Mild dextroconvex scoliotic curvature is seen. Age- appropriate bony degenerative changes are seen. No suspicious bony lesions. Overlying soft tissues appear unremarkable. IMPRESSION: Limited portable chest examination, without a significant cardiopulmonary abnormality identified. Postoperative and degenerative changes are seen. Dictated by: Uday William M.D. on 04/12/2025 at 9:10 Approved by: Uday William M.D. on 04/12/2025 at 9:11
--- NOTE | 2025-04-12 09:37 | ED_ITS ---
HPI - Chest Pain General Chief Complaint: Chest Pain Stated Complaint: Jaw, neck, shoulder, and chest pain/blood pressure Time Seen by Provider: 04/12/25 09:37 History of Present Illness HPI narrative: Patient is a 60-year-old female history of hypothyroid, type 2 diabetes, right- sided breast cancer 1.5 years ago presenting to day with right-sided neck pain and jaw pain. She reports that since she had her breast cancer she has had some ongoing neck pain. She reports trouble with a port placement it kept coiling in her neck ultimately port was placed on the left side. She says since then she has had some ongoing neck pain however seems to be getting a little bit worse and now radiating to her right jaw. She has no numbness tingling or weakness of her right arm or her face. She reports that when she pushes on her neck on the right side she can make the pain go away. It does not seem to be better or worse with position. However today she noticed some right-sided jaw pain and some chest pain and decided to come to the ED. She reports that her neck pain is definitely worse than her chest pain. She denies any kind of shortness of breath nausea or vomiting. 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 Estrada, whom she sees for a arrhythmia but she is not sure what, she reports no history of ACS Related Data Home Medications ?Medication ?Instructions ?Recorded ?Confirmed calcium carb-D3-mag [id number] PO 10/15/23 01/27/25 tamoxifen 20 mg tablet 20 mg PO DAILY 06/24/2401/05 methocarbamol 500 mg tablet 500 mg PO QID PRN 01/27/25 01/27/25 Previous Rx's ?Medication ?Instructions ?Recorded acetaminophen 325 mg capsule 650 mg (2 x 325 mg) PO QI D PRN 01/03/23 (Tylenol) pain #60 caps albuterol sulfate 90 mcg/actuation 2 puff inhalation Q 6H PRN 12/10/23 aerosol inhaler shortness of breath or wheez ing #6.7 grams inhalational spacing device #1 ea 12/10/23 (Aerochamber MV spacer) meloxicam 15 mg tablet 15 mg PO DAILY #30 tabs 01/05 11/28 levothyroxine 175 mcg tablet 175 mcg PO DAILY #90 tabs 01/29/25 Allergies Allergy/AdvReac Type Severity Reaction Status Date / Time adhesive Allergy Severe HIVES Verified 01/27/25 08:16 bacitracin Allergy Severe Hives/ Rash Verified 01/27/25 08:16 latex Allergy Severe HIVES Verified 01/27/25 08:16 neomycin Allergy Severe Hives/ Rash Verified 01/27/25 08:16 polymyxin B Allergy Severe Hives/ Rash Verified 01/27/25 08:16 shellfish derived Allergy Mild ITCHING Verified 01/27/25 08:16 ALL OVER BODY Penicillins Allergy Unknown I was Verified 01/27/25 08:16 told that. I was a child when it happened. Sulfa (Sulfonamide Allergy Unknown makes me Verified 01/27/25 08:16 Antibiotics) more sick. I can't remember how bad. Patient History Medical History Left knee pain Moderate aortic stenosis Seborrheic keratoses, inflamed Type 2 diabetes mellitus Heart murmur Well adult exam Hyperglycemia Seasonal allergic rhinitis Low back pain Pneumonia Scarlet fever Fractures Hyperlipemia Migraine headache Hypothyroidism (03/02/11) Surgical History History of surgery (01/17/23) History of lumpectomy of right breast (01/03/23) Hx of breast biopsy (11/03/22) Family History Grandmother Breast cancer Social History marital status: household members: spouse lives independently: Yes occupational status: employed Smoking Status: Former smoker Tobacco: How many years used: 8 second hand exposure: No alcohol intake: never substance use type: marijuana alcohol intake frequency: holidays/special occasions only Exam Initial Vital Signs Initial Vital Signs: Vital Signs Temperature 98.4 F 04/12/25 09:29 Pulse Rate 89 04/12/25 09:29 Respiratory Rate 12 04/12/25 09:29 Blood Pressure 149/98 H 04/12/25 09:29 Pulse Oximetry 98 04/12/25 09:29 Oxygen Delivery Method Room Air 04/12/25 09:29 GENERAL: Alert pleasant well-appearing 60-year-old female HEENT: Head atraumatic,EOMI, pupils reactive, face symmetric, moist mucous membranes NECK: She actually does have full range of motion of her neck points to just postauricular where she is experiencing pain, she has no pain over the mastoid CARDIOVASCULAR: Regular rate and rhythm without murmurs, rubs or gallops. RESPIRATORY: Breath sounds equal bilaterally, no wheezes rales or rhonchi. ABDOMEN: Soft, nontender. Normoactive bowel sounds all 4 quadrants. No guarding or rebound. EXTREMITIES: Normal range of motion, no clubbing or edema. Neurovascularly intact NEUROLOGICAL: Alert and oriented x4.Normal gait and speech. Cranial nerves II through XII grossly intact. Good [id number], good pett-[id number], strength equal bilaterally, no dysarthria or aphasia, sensation in tact to soft touch bilaterally, no visual changes, no facial droop Sensation on both right and left arm intact and equal Field Applications Specialist strength equal bilaterally SKIN: Warm, dry, no laceration, no petechiae, no rashes or lesions. Scores HEART Score Heart Score history: Slightly Suspicious Heart Score EKG: Normal Heart Score Age: 45-64 years old Heart Score risk factors: 1-2 risk factors Heart Score troponin: < or = to normal limit Heart Score Total: 2 Course Orders Ordered: ED Orders 04/12/25 09:32 XR chest 1V Stat EKG-12 Lead Stat 04/12/25 09:40 CT angio head and neck Stat Complete Blood Count AUTO DIFF Stat Comprehensive Metabolic Panel Stat Lipase Stat Magnesium Stat NT-proBNP (BNP-Adult 18+) Stat PTT Partial Thromboplastin Leonardo Stat Prothrombin Time INR Stat Troponin & CK Cardiac Panel Stat 04/12/25 11:43 Troponin I Stat Discontinued Medications Aspirin (Aspirin 81 Mg Chew Tab) 324 mg PO NOW ONE Stop: 04/12/25 09:33 Last Admin: 04/12/25 09:43 Dose: 324 mg Documented By: Vital Signs Vital signs: Vital Signs - 8 hr 04/12/25 09:29 04/12/25 09:35 04/12/25 09:35 Temperature 98.4 F Pulse Rate 89 Respiratory Rate 12 Blood Pressure 149/98 H 148/98 H Pulse Oximetry 98 98 Oxygen Delivery Method Room Air 04/12/25 10:08 04/12/25 10:30 04/12/25 10:30 Temperature Pulse Rate 80 76 Respiratory Rate 18 Blood Pressure 169/74 H Pulse Oximetry 98 Oxygen Delivery Method 04/12/25 11:00 04/12/25 11:01 04/12/25 11:01 Temperature Pulse Rate 74 74 Respiratory Rate 23 19 Blood Pressure 145/87 H Pulse Oximetry 96 97 Oxygen Delivery Method 04/12/25 11:30 04/12/25 11:31 04/12/25 11:31 Temperature Pulse Rate 72 71 Respiratory Rate 16 17 Blood Pressure 156/69 H Pulse Oximetry 96 97 Oxygen Delivery Method 04/12/25 12:00 04/12/25 12:04 04/12/25 12:04 Temperature Pulse Rate 70 67 Respiratory Rate 21 22 Blood Pressure 147/75 H Pulse Oximetry 98 98 Oxygen Delivery Method MDM - Chest Pain Lab Data 04/12/25 09:40 04/12/25 09:40 Labs: Lab Results 04/12/25 04/12/25 Range/Units 09:40 11:43 WBC 5.9 (4.5-11.0) X10^3/uL RBC 4.66 (4.0-5.2) X10^6/uL Hgb 13.8 (12.0-16.0) g/dL Hct 40.2 (36-46) % MCV 86.4 (80-100) fL MCH 29.7 (26-34) PG MCHC 34.3 (30-36) % RDW 13.8 (11.6-14.8) % Plt Count 192 (150-400) X10^3/uL Neut % (Auto) 64.3 (50-75) % Lymph % (Auto) 28.2 (25-40) % Saunders % (Auto) 4.8 (3-14) % Eos % (Auto) 1.8 L (2-4) % Baso % (Auto) 0.9 (0-2) % Neut # (Auto) 3800 (2527-1000) /uL Lymph # (Auto) 1700 (7817-0289) /uL Saunders # (Auto) 300 (0-900) /uL Eos # (Auto) 100 (0-450) /uL Baso # (Auto) 100 (0-100) /uL PT 11.2 (9.4-12.5) SECONDS INR 1.0 (0.9-1.3) APTT 41 H (25.1-36.5) SECONDS Sodium 137 (137-145) mmol/L Potassium 4.1 (3.4-5.1) mmol/L Chloride 105 (98-107) mmol/L Carbon Dioxide 24 (22-32) mmol/L BUN 16 (7-17) mg/dL Creatinine 0.59 (0.52-1.04) mg/dL Estimated GFR > 60 (>60) mL/min BUN/Creatinine Ratio 27.1 H (6-22) Glucose 202 H (70-99) mg/dL Calcium 8.8 (8.4-10.2) mg/dL Magnesium 1.9 (1.6-2.3) mg/dL Total Bilirubin 0.7 (0.2-1.3) mg/dL AST 24 (14-36) IU/L ALT 21 (<35) IU/L Alkaline Phosphatase 66 (38-126) U/L Total Creatine Kinase 85 (30-135) U/L Troponin I < 0.012 < 0.012 (0.01-0.034) ng/mL NT-Pro-B Natriuret Pep 286 H (<125) pg/mL Total Protein 7.0 (6.3-8.2) g/dL Albumin 4.3 (3.5-5.0) g/dL Globulin 2.7 (1.7-4.1) g/dL Albumin/Globulin Ratio 1.6 (1.0-2.8) Lipase 96 (23-300) U/L Imaging Data Chest x-ray: Radiologist's Impression: PROCEDURE: XR CHEST 1V INDICATIONS: Chest Pain TECHNIQUE: One view of the chest was acquired. COMPARISON: [facility], , XR CHEST 1V, 02/23/2023, 14:38. FINDINGS: Surgical changes and devices: The previously seen chest port has been removed. Right axillary clips are seen. Lungs and pleura: An incomplete inspiratory result is noted, causing a crowded appearance to the lung markings. No focal infiltrates are seen. No pneumothorax or significant pleural effusions are seen. Mediastinum: The cardiac contours are within normal limits. The aorta demonstrates calcification and tortuosity. Bones and chest wall: Mild dextroconvex scoliotic curvature is seen. Age- appropriate bony degenerative changes are seen. No suspicious bony lesions. Overlying soft tissues appear unremarkable. IMPRESSION: Limited portable chest examination, without a significant cardiopulmonary abnormality identified. Postoperative and degenerative changes are seen. Dictated by: Uday William M.D. on 04/12/2025 at 9:10 CTA - brain/neck: Radiologist's Impression: PROCEDURE: CT ANGIO HEAD AND NECK INDICATIONS: right neck pain and jaw pain, please evaluate for dissection TECHNIQUE: After the administration of intravenous contrast, 1 mm thick sections acquired from the aortic arch through the [place]. 3-dimensional gfefmkf-hyicqjtrs-bttgzaokoj (MIP) and/or volume rendering reformats were acquired of the central intracranial vasculature and neck separately. For radiation dose reduction, the following was used: automated exposure control, adjustment of mA and/or kV according to patient size. COMPARISON: [facility], CT, CT ANGIO HEAD AND NECK, 07/12/2021, 15:30. FINDINGS: Image quality: Limited by bolus timing, with venous contamination. Cerebral CT Angiogram: Internal carotid arteries: No acute findings. Intracranial ICA are patent with no significant stenosis. No occlusion. No aneurysm. Anterior cerebral arteries: Unremarkable. No significant stenosis. No occlusion. No aneurysm. Middle cerebral arteries: Unremarkable. No significant stenosis. No occlusion. No aneurysm. Posterior cerebral arteries: Unremarkable. No significant stenosis. No occlusion. No aneurysm. Basilar artery: Unremarkable. No significant stenosis. No occlusion. No aneurysm. Vertebral arteries: Unremarkable as visualized. Dural venous sinuses: Unremarkable given phase of enhancement. Other: Arterial phase appearance of the brain parenchyma is unremarkable. Neck CT Angiogram: Internal carotid arteries: The carotid bifurcations demonstrate atherosclerotic irregularity and calcification, with 30-40% narrowing on each side. The more distal internal carotid arteries demonstrate normal course and caliber. No findings of dissection can be seen. Common carotid arteries: Unremarkable. No significant stenosis. No dissection or occlusion. External carotid arteries: Unremarkable. No occlusion. Vertebral arteries: Unremarkable. No significant stenosis. No dissection or occlusion. Aortic Arch and Mediastinum: Partially visualized aortic arch unremarkable without evidence of aneurysm. Origins of the great vessels unremarkable. Other: Arterial phase soft tissues of the neck and chest are unremarkable. IMPRESSION: No findings of dissection are seen. 30-40% narrowing seen involving each internal carotid artery origin. No significant intracranial arterial abnormality is seen. Any quantitative measurements of stenosis were performed using NASCET criteria. Dictated by: Uday William M.D. on 04/12/2025 at 9:14 ECG Data Attestation: I personally reviewed and interpreted this ECG as follows: Interpretation: Normal sinus rhythm rate 80 MN interval 180 QRS 82 QTC 454 trigeminy noted. 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 Pertinent findings: CBC no anemia no leukocytosis CMP no electrolyte abnormalities no BESSIE Troponin negative x2 Independently reviewed EKG as above Sinus rhythm frequent PVC Imaging studies independently reviewed: Chest x-ray no acute cardiopulmonary process CT angio head and neck shows 30-40% narrowing and each internal carotid artery but no dissection or other abnormality found Consultations: none Treatments: none Re-evaluations: At this time pain improved as seems very positional not wanting anything for pain at this time Discussion: Patient is a 60-year-old female history of breast cancer presenting today with ongoing right-sided neck pain. She actually had an episode of eyes in the ED seem to very positional lasted briefly, he really seems to be along the sternocleidomastoid not postauricular. She was having some jaw pain as well in very mild chest pain. She has 2- troponins heart score of 2. Very low suspicion for ACS. She really does not have pain over mastoid or over bony prominence really is in the muscle comes and goes Her head and neck angio does not show any cervical abnormality no evidence of dissection or aneurysm. She overall is reassured. Recommend outpatient follow up She is offered pain medication here in the ED but declined Discharge Plan Departure Patient Disposition: Home Clinical Impression: Neck pain Instructions: DI for Neck Pain Activity Restrictions/Additional Instructions: *You have been diagnosed with neck pain *What to do: At this time workup in the emergency department is overall reassuring. You may require further testing such as MRI or other please talk with your primary care provider *Continue to take medications as directed Tylenol 1000 mg every 6 hours if needed for [id number] *Follow up with your primary care provider in 2-3 days or call [phone] *Return to ER if you should have \increasing pain weakness chest pain jaw pain or any new, worsening or concerning symptoms Prescriptions: No Action albuterol sulfate 90 mcg/actuation HFA aerosol inhaler 2 puff inhalation Q6H PRN (Reason: shortness of breath or wheezing) Qty: 6.7 0RF (DME) Aerochamber MV Spacer See Rx Instructions .ROUTE .MEDSUPPLY Qty: 1 0RF Rx Instructions: As directed levothyroxine 175 mcg tablet 175 mcg PO DAILY Qty: 90 1RF calcium carb-D3-mag [id number] PO tamoxifen 20 mg tablet 20 mg PO DAILY methocarbamol 500 mg tablet 500 mg PO QID PRN meloxicam 15 mg tablet 15 mg PO DAILY Qty: 30 2RF acetaminophen [Tylenol] 325 mg capsule 650 mg PO QID PRN (Reason: pain) Qty: 60 0RF Referrals: Suresh Dupree DO [Primary Care Provider, Family Practice] Stand Alone Forms: Patient Portal/API
--- NOTE | 2025-04-12 09:39 | EKG_ITS ---
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
--- NOTE | 2025-04-12 09:40 | DI.CT.S_ITS ---
PROCEDURE: CT ANGIO HEAD AND NECK INDICATIONS: right neck pain and jaw pain, please evaluate for dissection TECHNIQUE: After the administration of intravenous contrast, 1 mm thick sections acquired from the aortic arch through the [place] of [place]. 3-dimensional dxtptbg-bhvjhlana-uohczxenfp (MIP) and/or volume rendering reformats were acquired of the central intracranial vasculature and neck separately. For radiation dose reduction, the following was used: automated exposure control, adjustment of mA and/or kV according to patient size. COMPARISON: [facility], CT, CT ANGIO HEAD AND NECK, 07/12/2021, 15:30. FINDINGS: Image quality: Limited by bolus timing, with venous contamination. Cerebral CT Angiogram: Internal carotid arteries: No acute findings. Intracranial ICA are patent with no significant stenosis. No occlusion. No aneurysm. Anterior cerebral arteries: Unremarkable. No significant stenosis. No occlusion. No aneurysm. Middle cerebral arteries: Unremarkable. No significant stenosis. No occlusion. No aneurysm. Posterior cerebral arteries: Unremarkable. No significant stenosis. No occlusion. No aneurysm. Basilar artery: Unremarkable. No significant stenosis. No occlusion. No aneurysm. Vertebral arteries: Unremarkable as visualized. Dural venous sinuses: Unremarkable given phase of enhancement. Other: Arterial phase appearance of the brain parenchyma is unremarkable. Neck CT Angiogram: Internal carotid arteries: The carotid bifurcations demonstrate atherosclerotic irregularity and calcification, with 30-40% narrowing on each side. The more distal internal carotid arteries demonstrate normal course and caliber. No findings of dissection can be seen. Common carotid arteries: Unremarkable. No significant stenosis. No dissection or occlusion. External carotid arteries: Unremarkable. No occlusion. Vertebral arteries: Unremarkable. No significant stenosis. No dissection or occlusion. Aortic Arch and Mediastinum: Partially visualized aortic arch unremarkable without evidence of aneurysm. Origins of the great vessels unremarkable. Other: Arterial phase soft tissues of the neck and chest are unremarkable. IMPRESSION: No findings of dissection are seen. 30-40% narrowing seen involving each internal carotid artery origin. No significant intracranial arterial abnormality is seen. Any quantitative measurements of stenosis were performed using NASCET criteria. Dictated by: Uday William M.D. on 04/12/2025 at 9:14 Approved by: Uday William M.D. on 04/12/2025 at 9:17
[2025-04-12] MEDS: ASPIRIN 81 MG CHEW TAB 324 MG PO (09:43)
[2025-04-12 09:48] LABS: Add Manual Diff / Slide Review NO; Hematocrit 40.2 % (36-46); Hemoglobin 13.8 g/dL (12.0-16.0); Lymphocytes Absolute Auto 1700 /uL (1100-4500); Mean Corpuscular HGB Conc 34.3 % (30-36); Mean Corpuscular Hemoglobin 29.7 PG (26-34); Mean Corpuscular Volume 86.4 fL (80-100); Platelet Count 192 X10^3/uL (150-400)
[2025-04-12 09:54] LABS: INR 1.0 (0.9-1.3); Prothrombin Time 11.2 SECONDS (9.4-12.5)
[2025-04-12 09:57] LABS: PTT Partial Thromboplastin Tim 41 SECONDS (25.1-36.5)
[2025-04-12 10:03] LABS: Alanine Aminotransferase 21 IU/L (<35); Albumin 4.3 g/dL (3.5-5.0); Albumin Globulin Ratio 1.6 (1.0-2.8); Alkaline Phosphatase 66 U/L (38-126); Blood Urea Nitrogen 16 mg/dL (7-17); Calcium 8.8 mg/dL (8.4-10.2); Carbon Dioxide 24 mmol/L (22-32); Chloride 105 mmol/L (98-107); Creatine Kinase 85 U/L (30-135); Estimated Glomerular Filt Rate > 60 mL/min (>60); Globulin 2.7 g/dL (1.7-4.1); Glucose 202 mg/dL (70-99); HEMOLYSIS < 15 (0-50); Lipase 96 U/L (23-300); Magnesium 1.9 mg/dL (1.6-2.3); Potassium 4.1 mmol/L (3.4-5.1); Sodium 137 mmol/L (137-145); Total Protein 7.0 g/dL (6.3-8.2)
[2025-04-12 10:14] LABS: NT-proBNP (BNP-Adult 18+) 286 pg/mL (<125); Troponin I < 0.012 ng/mL (0.01-0.034)
[2025-04-12 12:12] LABS: Troponin I < 0.012 ng/mL (0.01-0.034)
== END 2025-04-12 12:38 | disposition home or self-care (01) ==
PROVIDERS: Emergency Provider Emergency Medicine; PCP Family Medicine
DX: M54.2 Cervicalgia (principal); R68.84 Jaw pain; R07.9 Chest pain, unspecified; E11.9 Type 2 diabetes mellitus without complications; C50.911 Malignant neoplasm of unspecified site of right female breast
CPT/HCPCS: 36415; 70496; 70498; 71045; 80053; 82550; 83690; 83735; 83880; 84484; 85025; 85610; 85730; 93005; 99284; Q9967

== ENCOUNTER 2025-05-21 09:46 | Emergency (ER) | payer OTHER, SELFPAY ==
[2025-05-21] VITALS (10 sets, daily range): BP systolic 153–208; BP diastolic 76–96; PULSE 44–82; RESP 14–18; TEMP 36.5; O2SAT 98–99; BMI 44.8
--- NOTE | 2025-05-21 10:06 | ED_ITS ---
HPI - General Adult General Chief complaint: Diabetic Problem Stated complaint: Blood sugar at 310 Time Seen by Provider: 05/21/25 09:52 Source: patient Mode of arrival: Ambulatory History of Present Illness HPI narrative: 60-year-old female prediabetic previously on metformin, right breast cancer status post chemo radiation in remission, increased thirst and urination, 5 lb weight loss, checked her sugar today 200 now 300. She denies chest pain, shortness of breath, dizziness, fever, chills, cough, runny nose, nausea, vomiting, diarrhea, constipation, abdominal pain. Other than what is stated 14 point review of system is negative. Related Data Home Medications ?Medication ?Instructions ?Recorded ?Confirmed calcium carb-D3-mag [id number] PO 10/15/23 01/27/25 tamoxifen 20 mg tablet 20 mg PO DAILY 06/24/2401/05 methocarbamol 500 mg tablet 500 mg PO QID PRN 01/27/25 01/27/25 Previous Rx's ?Medication ?Instructions ?Recorded acetaminophen 325 mg capsule 650 mg (2 x 325 mg) PO QI D PRN 01/03/23 (Tylenol) pain #60 caps albuterol sulfate 90 mcg/actuation 2 puff inhalation Q 6H PRN 12/10/23 aerosol inhaler shortness of breath or wheez ing #6.7 grams inhalational spacing device #1 ea 12/10/23 (Aerochamber MV spacer) levothyroxine 175 mcg tablet 175 mcg PO DAILY #90 tabs 01/29/25 meloxicam 15 mg tablet 15 mg PO DAILY #30 tabs 04/07 09/30 insulin glargine 100 unit/mL (3 10 unit (0.1 mL) SUBCU T QPM #15 mL 05/21/25 mL) subcutaneous pen (Lantus Solostar U-100 Insulin) insulin glargine 100 unit/mL 10 unit (0.1 mL) SUBCUT Q PM #10 mL 05/21/25 subcutaneous solution (Lantus U-100 Insulin) insulin lispro 100 unit/mL 5 unit (0.05 mL) SUBCUT TID #15 mL 05/21/25 subcutaneous cartridge (Humalog U-100 Insulin) insulin lispro 100 unit/mL 5 unit (0.05 mL) SUBCUT TID #10 mL 05/21/25 subcutaneous solution (Humalog U-100 Insulin) Allergies Allergy/AdvReac Type Severity Reaction Status Date / Time adhesive Allergy Severe HIVES Verified 05/21/25 09:54 bacitracin Allergy Severe Hives/ Rash Verified 05/21/25 09:54 latex Allergy Severe HIVES Verified 05/21/25 09:54 neomycin Allergy Severe Hives/ Rash Verified 05/21/25 09:54 polymyxin B Allergy Severe Hives/ Rash Verified 05/21/25 09:54 shellfish derived Allergy Mild ITCHING Verified 05/21/25 09:54 ALL OVER BODY Penicillins Allergy Unknown I was Verified 05/21/25 09:54 told that. I was a child when it happened. Sulfa (Sulfonamide Allergy Unknown makes me Verified 05/21/25 09:54 Antibiotics) more sick. I can't remember how bad. Review of Systems Review of Systems ROS Unobtainable: All systems reviewed & are unremarkable except as noted in HPI and below Patient History Medical History Left knee pain Moderate aortic stenosis Seborrheic keratoses, inflamed Type 2 diabetes mellitus Heart murmur Well adult exam Hyperglycemia Seasonal allergic rhinitis Low back pain Pneumonia Scarlet fever Fractures Hyperlipemia Migraine headache Hypothyroidism (03/02/11) Surgical History History of surgery (01/17/23) History of lumpectomy of right breast (01/03/23) Hx of breast biopsy (11/03/22) Family History Grandmother Breast cancer Social History marital status: household members: spouse lives independently: Yes occupational status: employed Tobacco: How many years used: 8 second hand exposure: No alcohol intake: never substance use type: marijuana Smoking Status: Unknown if ever smoked alcohol intake frequency: holidays/special occasions only Exam Narrative Exam Narrative: GENERAL: [60] year old patient appears stated age. Well-developed patient, in mild distress. HEAD: Atraumatic. Normocephalic. EYES: Pupils equal round and reactive. Extraocular motions intact. No scleral icterus. No injection or drainage. ENT: Nose without bleeding, purulent drainage. Throat without erythema, tonsillar hypertrophy or exudate. Airway patent. NECK: Trachea midline. Non tender CARDIOVASCULAR: Regular rate and rhythm without murmurs, gallops, or rubs. RESPIRATORY: Clear to auscultation. Breath sounds equal bilaterally. No wheezes, rales, or rhonchi. GASTROINTESTINAL: Abdomen soft, non-tender, nondistended. EXTREMITIES: No edema or joint tenderness. BACK: Nontender without deformity or crepitance. No flank tenderness. NEURO: AOx3. SKIN: No rash or erythema of visible areas Initial Vital Signs Initial Vital Signs: Vital Signs Temperature 97.7 F 05/21/25 09:54 Pulse Rate 44 L 05/21/25 09:54 Respiratory Rate 14 05/21/25 09:54 Blood Pressure 159/84 H 05/21/25 09:54 Pulse Oximetry 98 05/21/25 09:54 Oxygen Delivery Method Room Air 05/21/25 09:54 Course Orders Ordered: ED Orders 05/21/25 10:00 A1C [Hemoglobin A1C% w Est Avg Glu] Stat Complete Blood Count AUTO DIFF Stat Comprehensive Metabolic Panel Stat Ketones (Beta-Hydroxybutyrate) Stat Lipase Stat Magnesium Stat NT-proBNP (BNP-Adult 18+) Stat PTT Partial Thromboplastin Leonardo Stat Prothrombin Time INR Stat Troponin & CK Cardiac Panel Stat 05/21/25 10:14 VBG [Venous Blood Gas] STAT 05/21/25 10:16 XR chest 1V Stat EKG-12 Lead Stat 05/21/25 10:27 Venous Blood Gas Routine 05/21/25 12:30 Urine Microscopic Stat Discontinued Medications Sodium Chloride (Normal Saline 0.9%) 1,000 mls @ 1,000 mls/hr IV BOLUS ONE Stop: 05/21/25 11:13 Last Infusion: 05/21/25 11:17 Dose: Infused Documented By: Admin: 05/21/25 10:27 Dose: 1,000 mls/hr Documented By: GLORIA Sodium Chloride (Normal Saline 0.9%) 1,000 mls @ 1,000 mls/hr IV BOLUS ONE Stop: 05/21/25 11:27 Last Infusion: 05/21/25 12:27 Dose: Infused Documented By: Admin: 05/21/25 11:17 Dose: 1,000 mls/hr Documented By: BELEN Insulin Human Regular (Insulin Regular 100 Unit/Ml 3 Ml Vial) 8 unit IV NOW ONE Stop: 05/21/25 10:25 Last Admin: 05/21/25 10:35 Dose: 8 unit Documented By: BELEN Co-signed By: GLORIA Vital Signs Vital signs: Vital Signs - 8 hr 05/21/25 09:54 05/21/25 10:09 05/21/25 10:30 Temperature 97.7 F Pulse Rate 44 L 82 80 Respiratory Rate 14 17 15 Blood Pressure 159/84 H Pulse Oximetry 98 98 99 Oxygen Delivery Method Room Air 05/21/25 10:31 05/21/25 10:31 05/21/25 10:53 Temperature Pulse Rate 81 80 Respiratory Rate 16 16 Blood Pressure 208/91 H Pulse Oximetry 99 98 Oxygen Delivery Method 05/21/25 10:53 05/21/25 11:00 05/21/25 11:00 Temperature Pulse Rate 78 Respiratory Rate 17 Blood Pressure 184/96 H 159/89 H Pulse Oximetry 99 Oxygen Delivery Method 05/21/25 11:30 05/21/25 11:31 05/21/25 11:31 Temperature Pulse Rate 72 72 Respiratory Rate 18 17 Blood Pressure 153/76 H Pulse Oximetry 99 98 Oxygen Delivery Method 05/21/25 12:00 05/21/25 12:12 05/21/25 12:12 Temperature Pulse Rate 71 68 Respiratory Rate 16 Blood Pressure 185/86 H Pulse Oximetry 99 Oxygen Delivery Method Room Air Medical Decision Making Lab Data 05/21/25 10:00 05/21/25 10:00 Labs: Lab Results 05/21/25 05/21/25 05/21/25 Range/Units 09:52 10:00 10:08 WBC 5.7 (4.5-11.0) X10^3/uL RBC 5.14 (4.0-5.2) X10^6/uL Hgb 14.9 (12.0-16.0) g/dL Hct 44.1 (36-46) % MCV 85.9 (80-100) fL MCH 29.1 (26-34) PG MCHC 33.9 (30-36) % RDW 13.7 (11.6-14.8) % Plt Count 176 (150-400) X10^3/uL Neut % (Auto) 64.2 (50-75) % Lymph % (Auto) 26.9 (25-40) % [place] % (Auto) 6.2 (3-14) % Eos % (Auto) 2.0 (2-4) % Baso % (Auto) 0.7 (0-2) % Neut # (Auto) 3600 (9634-0519) /uL Lymph # (Auto) 1500 (3991-9114) /uL [place] # (Auto) 400 (0-900) /uL Eos # (Auto) 100 (0-450) /uL Baso # (Auto) 0 (0-100) /uL PT 11.0 (9.4-12.5) SECONDS INR 1.0 (0.9-1.3) APTT 40 H (25.1-36.5) SECONDS VBG pH (7.33-7.43) VBG pCO2 (45-50) mmHg VBG pO2 (35-45) mmHg VBG HCO3 (24-28) mmol/L VBG Total CO2 (24-29) mmol/L VBG O2 Saturation (70-75) % VBG Base Excess (0-4) mmol/L FiO2 % % Sodium 136 L (137-145) mmol/L Potassium 4.3 (3.4-5.1) mmol/L Chloride 102 (98-107) mmol/L Carbon Dioxide 25 (22-32) mmol/L BUN 15 (7-17) mg/dL Creatinine 0.63 (0.52-1.04) mg/dL Estimated GFR > 60 (>60) mL/min BUN/Creatinine Ratio 23.8 H (6-22) Glucose 313 H (70-99) mg/dL POC Whole Bld Glucose 319 H 320 H (70-99) mg/dL Hemoglobin A1c 8.5 H (4.0-6.0) % Calcium 9.2 (8.4-10.2) mg/dL Magnesium 1.9 (1.6-2.3) mg/dL Total Bilirubin 0.7 (0.2-1.3) mg/dL AST 26 (14-36) IU/L ALT 27 (<35) IU/L Alkaline Phosphatase 78 (38-126) U/L Total Creatine Kinase 51 (30-135) U/L Troponin I < 0.012 (0.01-0.034) ng/mL NT-Pro-B Natriuret Pep 307 H (<125) pg/mL Total Protein 7.5 (6.3-8.2) g/dL Albumin 4.7 (3.5-5.0) g/dL Globulin 2.8 (1.7-4.1) g/dL Albumin/Globulin Ratio 1.7 (1.0-2.8) Lipase 108 (23-300) U/L Urine RBC (0-5/HPF) Urine WBC (0-5/HPF) Ur Squamous Epith Cells (0-5/HPF) Urine Bacteria (None) Ur Culture Indicated? Vol Urine Centrifuged Ketones 0.23 (<0.27) mmol/L 05/21/25 05/21/25 05/21/25 Range/Units 10:27 11:22 12:17 WBC (4.5-11.0) X10^3/uL RBC (4.0-5.2) X10^6/uL Hgb (12.0-16.0) g/dL Hct (36-46) % MCV (80-100) fL MCH (26-34) PG MCHC (30-36) % RDW (11.6-14.8) % Plt Count (150-400) X10^3/uL Neut % (Auto) (50-75) % Lymph % (Auto) (25-40) % [place] % (Auto) (3-14) % Eos % (Auto) (2-4) % Baso % (Auto) (0-2) % Neut # (Auto) (2486-6763) /uL Lymph # (Auto) (1398-5497) /uL [place] # (Auto) (0-900) /uL Eos # (Auto) (0-450) /uL Baso # (Auto) (0-100) /uL PT (9.4-12.5) SECONDS INR (0.9-1.3) APTT (25.1-36.5) SECONDS VBG pH 7.45 H (7.33-7.43) VBG pCO2 41.8 L (45-50) mmHg VBG pO2 32 L (35-45) mmHg VBG HCO3 29 H (24-28) mmol/L VBG Total CO2 27 (24-29) mmol/L VBG O2 Saturation 65 L (70-75) % VBG Base Excess 4.1 H (0-4) mmol/L FiO2 % 21.0 % % Sodium (137-145) mmol/L Potassium (3.4-5.1) mmol/L Chloride (98-107) mmol/L Carbon Dioxide (22-32) mmol/L BUN (7-17) mg/dL Creatinine (0.52-1.04) mg/dL Estimated GFR (>60) mL/min BUN/Creatinine Ratio (6-22) Glucose (70-99) mg/dL POC Whole Bld Glucose 195 H D 155 H (70-99) mg/dL Hemoglobin A1c (4.0-6.0) % Calcium (8.4-10.2) mg/dL Magnesium (1.6-2.3) mg/dL Total Bilirubin (0.2-1.3) mg/dL AST (14-36) IU/L ALT (<35) IU/L Alkaline Phosphatase (38-126) U/L Total Creatine Kinase (30-135) U/L Troponin I (0.01-0.034) ng/mL NT-Pro-B Natriuret Pep (<125) pg/mL Total Protein (6.3-8.2) g/dL Albumin (3.5-5.0) g/dL Globulin (1.7-4.1) g/dL Albumin/Globulin Ratio (1.0-2.8) Lipase (23-300) U/L Urine RBC (0-5/HPF) Urine WBC (0-5/HPF) Ur Squamous Epith Cells (0-5/HPF) Urine Bacteria (None) Ur Culture Indicated? Vol Urine Centrifuged Ketones (<0.27) mmol/L /16/ Range/Units 12:30 WBC (4.5-11.0) X10^3/uL RBC (4.0-5.2) X10^6/uL Hgb (12.0-16.0) g/dL Hct (36-46) % MCV (80-100) fL MCH (26-34) PG MCHC (30-36) % RDW (11.6-14.8) % Plt Count (150-400) X10^3/uL Neut % (Auto) (50-75) % Lymph % (Auto) (25-40) % [place] % (Auto) (3-14) % Eos % (Auto) (2-4) % Baso % (Auto) (0-2) % Neut # (Auto) (5417-4942) /uL Lymph # (Auto) (9402-3167) /uL [place] # (Auto) (0-900) /uL Eos # (Auto) (0-450) /uL Baso # (Auto) (0-100) /uL PT (9.4-12.5) SECONDS INR (0.9-1.3) APTT (25.1-36.5) SECONDS VBG pH (7.33-7.43) VBG pCO2 (45-50) mmHg VBG pO2 (35-45) mmHg VBG HCO3 (24-28) mmol/L VBG Total CO2 (24-29) mmol/L VBG O2 Saturation (70-75) % VBG Base Excess (0-4) mmol/L FiO2 % % Sodium (137-145) mmol/L Potassium (3.4-5.1) mmol/L Chloride (98-107) mmol/L Carbon Dioxide (22-32) mmol/L BUN (7-17) mg/dL Creatinine (0.52-1.04) mg/dL Estimated GFR (>60) mL/min BUN/Creatinine Ratio (6-22) Glucose (70-99) mg/dL POC Whole Bld Glucose (70-99) mg/dL Hemoglobin A1c (4.0-6.0) % Calcium (8.4-10.2) mg/dL Magnesium (1.6-2.3) mg/dL Total Bilirubin (0.2-1.3) mg/dL AST (14-36) IU/L ALT (<35) IU/L Alkaline Phosphatase (38-126) U/L Total Creatine Kinase (30-135) U/L Troponin I (0.01-0.034) ng/mL NT-Pro-B Natriuret Pep (<125) pg/mL Total Protein (6.3-8.2) g/dL Albumin (3.5-5.0) g/dL Globulin (1.7-4.1) g/dL Albumin/Globulin Ratio (1.0-2.8) Lipase (23-300) U/L Urine RBC 1-5/hpf (0-5/HPF) Urine WBC 10-30/hpf H (0-5/HPF) Ur Squamous Epith Cells 10-30 /hpf H (0-5/HPF) Urine Bacteria Few (2-10) H (None) Ur Culture Indicated? Cult not indicated Vol Urine Centrifuged 10ml (spun) Ketones (<0.27) mmol/L Point of Care Testing Glucose POC 319 Urine Dip Bedside Urine Glucose Negative Bedside Urine Bilirubin - Negative Bedside Urine Ketone - Negative Urine Specific [place] 1.005 Bedside Urine Occult Blood +/- Bedside Urine pH 6.0 Bedside Urine Protein - Negative Bedside Urine Urobilinogen - Negative Bedside Urine Nitrite - Negative Bedside Urine Leukocytes - Negative Esterase Point of care testing: Point of Care Testing Glucose POC 319 Urine Dip Bedside Urine Glucose Negative Bedside Urine Bilirubin - Negative Bedside Urine Ketone - Negative Urine Specific [place] 1.005 Bedside Urine Occult Blood +/- Bedside Urine pH 6.0 Bedside Urine Protein - Negative Bedside Urine Urobilinogen - Negative Bedside Urine Nitrite - Negative Bedside Urine Leukocytes - Negative Esterase ECG Data Interpretation: sinus rhythm with pvc HR 79 NM 180 QRS [address]-t wave change Unchanged from 04/12/25 MDM Narrative Medical decision making narrative: All lab work, vital signs, nurse triage note, medication list, previous ER visits, and all imaging studies reviewed. Patient given 2 L normal saline bolus and regular insulin 8 units. WBC 5.7 hemoglobin 14.9 platelet 176 INR 1.0 VBG pH 7.45 pCO2 41.8 bicarb 29 O2 sat 65 base excess 4.1 sodium 136 potassium 4.3 chloride 102 CO2 25 BUN 15 creatinine 0.63 6 glucose 319 320 and 195 troponin normal BNP 307 lipase 108 ketones 0.23. Repeat blood sugar 155. We will discharge patient Lantus and Humalog and have them follow up with Dr. Dupree. Differential diagnosis new onset diabetes, DKA. Discharge Plan Departure Patient Disposition: Home Clinical Impression: Diabetes mellitus, new onset Instructions: DI for Diabetes Type 2 Activity Restrictions/Additional Instructions: Return with new or worsening symptoms. Please follow up with PCP tomorrow or next week. Take medicines as prescribed. Prescriptions: New insulin glargine [Lantus U-100 Insulin] 100 unit/mL solution 10 unit SUBCUT QPM Qty: 10 0RF insulin lispro [Humalog U-100 Insulin] 100 unit/mL solution 5 unit SUBCUT TID Qty: 10 0RF insulin glargine [Lantus Solostar U-100 Insulin] 100 unit/mL (3 mL) insulin pen 10 unit SUBCUT QPM Qty: 15 0RF Humalog U-100 Insulin 100 unit/mL cartridge 5 unit SUBCUT TID Qty: 15 0RF No Action albuterol sulfate 90 mcg/actuation HFA aerosol inhaler 2 puff inhalation Q6H PRN (Reason: shortness of breath or wheezing) Qty: 6.7 0RF (DME) Aerochamber MV Spacer See Rx Instructions .ROUTE .MEDSUPPLY Qty: 1 0RF Rx Instructions: As directed levothyroxine 175 mcg tablet 175 mcg PO DAILY Qty: 90 1RF meloxicam 15 mg tablet 15 mg PO DAILY Qty: 30 1RF calcium carb-D3-mag [id number] PO tamoxifen 20 mg tablet 20 mg PO DAILY methocarbamol 500 mg tablet 500 mg PO QID PRN acetaminophen [Tylenol] 325 mg capsule 650 mg PO QID PRN (Reason: pain) Qty: 60 0RF Referrals: Suresh Dupree DO [Primary Care Provider, Family Practice] Stand Alone Forms: Patient Portal/API
--- NOTE | 2025-05-21 10:16 | EKG_ITS ---
[facility] [address] [place] [address] Test Date: 2025-05-21 Pat Name: Hawa Quinn Department: [facility] Room: Gender: Female Manager Summer: BELEN : 1965 Requested By: Order Number: [id number] Reading MD: Rey Ramon MD Measurements Intervals [place] Rate: 79 P: 50 CT: 180 QRS: -6 QRSD: 80 T: 46 QT: 376 QTc: 431 Interpretive Statements Sinus rhythm with frequent premature ventricular complexes Minimal voltage criteria for LVH, may be normal variant ( R in aVL ) Inferior infarct , age undetermined Possible Anterior infarct , age undetermined Electronically Signed On 05-21-2025 12:00:51 PDT by Rey Ramon MD
--- NOTE | 2025-05-21 10:16 | DI.RAD.S_ITS ---
PROCEDURE: XR CHEST 1V INDICATIONS: Chest Pain TECHNIQUE: One view of the chest was acquired. COMPARISON: [facility], CR, XR CHEST 1V, 02/23/2023, 14:38. [facility], CR, XR CHEST 1V, 04/12/2025, 9:51. FINDINGS: Surgical changes and devices: Right axillary/chest wall clips are seen. Lungs and pleura: An incomplete inspiratory result is noted, causing a crowded appearance to the lung markings. No focal infiltrates are seen. No pneumothorax or significant pleural effusions are seen. Mediastinum: The cardiac contours are within normal limits. The aorta demonstrates calcification and tortuosity. Bones and chest wall: No suspicious bony lesions. Age-appropriate bony degenerative changes are seen. Overlying soft tissues appear unremarkable. IMPRESSION: Low lung volumes, without an acute abnormality seen by plain film. Dictated by: Uday William M.D. on 05/21/2025 at 9:53 Approved by: Uday William M.D. on 05/21/2025 at 9:54
[2025-05-21 10:23] LABS: Add Manual Diff / Slide Review NO; Hematocrit 44.1 % (36-46); Hemoglobin 14.9 g/dL (12.0-16.0); Lymphocytes Absolute Auto 1500 /uL (1100-4500); Mean Corpuscular HGB Conc 33.9 % (30-36); Mean Corpuscular Hemoglobin 29.1 PG (26-34); Mean Corpuscular Volume 85.9 fL (80-100); Platelet Count 176 X10^3/uL (150-400)
[2025-05-21 10:25] LABS: INR 1.0 (0.9-1.3); Prothrombin Time 11.0 SECONDS (9.4-12.5)
[2025-05-21] MEDS: SODIUM CHLORIDE 0.9% 1,000 ML 1000 ML IV ×2 (10:27→11:17)
[2025-05-21 10:28] LABS: PTT Partial Thromboplastin Tim 40 SECONDS (25.1-36.5)
[2025-05-21 10:30] LABS: Base Excess VBG 4.1 mmol/L (0-4); HCO3 VBG 29 mmol/L (24-28); Oxygen Saturation VBG 65 % (70-75); PCO2 VBG 41.8 mmHg (45-50); PO2 VBG 32 mmHg (35-45); Total CO2 VBG 27 mmol/L (24-29); pH VBG 7.45 (7.33-7.43)
[2025-05-21 10:31] LABS: Alanine Aminotransferase 27 IU/L (<35); Albumin 4.7 g/dL (3.5-5.0); Albumin Globulin Ratio 1.7 (1.0-2.8); Alkaline Phosphatase 78 U/L (38-126); Blood Urea Nitrogen 15 mg/dL (7-17); Calcium 9.2 mg/dL (8.4-10.2); Carbon Dioxide 25 mmol/L (22-32); Chloride 102 mmol/L (98-107); Creatine Kinase 51 U/L (30-135); Estimated Glomerular Filt Rate > 60 mL/min (>60); Globulin 2.8 g/dL (1.7-4.1); Glucose 313 mg/dL (70-99); HEMOLYSIS 19 (0-50); Lipase 108 U/L (23-300); Magnesium 1.9 mg/dL (1.6-2.3); Potassium 4.3 mmol/L (3.4-5.1); Sodium 136 mmol/L (137-145); Total Protein 7.5 g/dL (6.3-8.2)
[2025-05-21] MEDS: INSULIN REGULAR 100 UNIT/ML 3 ML VIAL 8 UNIT IV (10:35)
[2025-05-21 10:42] LABS: NT-proBNP (BNP-Adult 18+) 307 pg/mL (<125); Troponin I < 0.012 ng/mL (0.01-0.034)
[2025-05-21 10:58] LABS: Ketones (Beta-Hydroxybutyrate) 0.23 mmol/L (<0.27)
[2025-05-21 12:57] LABS: Culture Indicated Urine Cult Not Indicated
[2025-05-21 12:58] LABS: Hemoglobin A1C% w Est Avg Glu 8.5 % (4.0-6.0)
== END 2025-05-21 12:47 | disposition home or self-care (01) ==
PROVIDERS: Emergency Provider Family Medicine; PCP Family Medicine
DX: E11.65 Type 2 diabetes mellitus with hyperglycemia (principal)
CPT/HCPCS: 71045; 80053; 81003; 81015; 82009; 82550; 82805; 82962; 83036; 83690; 83735; 83880; 84484; 85025; 85610; 85730; 93005; 93010; 96361; 96374; 99284; J7030

== ENCOUNTER → 2025-08-04 08:06 | Outpatient (CLI) | payer OTHER, SELFPAY ==
--- NOTE | 2025-08-04 08:07 | DI.ECHO.S_ITS ---
[facility] : : [address] : : [place] : : [id number] : : Phone: [phone] Echocardiogram Report + + :Name: JOIE BAZZI Study Date: 08/04/2025 Height: 62.5 in: :[facility] ReadingLocation: Weight: 237 lb : : Gender: Female BSA: 2.1 m2 : :: 1965 Age: 60 yrs BP: 127/80 mmHg: :Reason For Study: Aortic Stenosis : :Ordering Physician: ROSSY VILLALBA Performed By: Josh Krishna : :Referring: ROSSY VILLALBA : + + Interpretation Summary - Borderline LV contractility with EF 50-55% and no WMA. Mild cLVH. Normal diastolic function. - Normal RV contractility. - Normal chamber sizes. - Moderate . - No obvious intracardiac shunts. . - No obvious intracardiac masses/thrombi. - No hemodynamilcally significant pericardial effusion. - Low right sided filling pressures. Conclusion: Normal biventricular function with moderate aortic valvular stenosis. When compared with previous study, no significant change in the degree of aortic stenosis is present but there is a mild decrease in the LV systolic function. Frequent PVC's present Procedure: A two-dimensional transthoracic echocardiogram with color flow and Doppler was performed. The study quality was technically adequate. Comparison is made with the echocardiogram of 01/02/2024. The patient had frequent PVCs during the exam. Left Ventricle: The left ventricle is normal in size. Left ventricular wall thickness is mildly increased. Left ventricular ejection fraction is estimated to be 55 +/- 5%. Beat to beat variability with frequent PVC's at time of scan. Normal diastolic function. Right Ventricle: The right ventricle is normal in size and function. Atria: The left atrial size is normal. Right atrial size is normal. There is no Doppler evidence for an interatrial shunt. Mitral Valve: There is mild mitral annular calcification. The mitral valve leaflets appear to open well. There is no mitral valve stenosis. There is trace mitral regurgitation. Aortic Valve: The aortic valve is trileaflet. The aortic valve is moderately calcified. There is moderate aortic stenosis. The calculated aortic valve area is 1.1 cm2. The peak aortic velocity is 3.3 m/sec. The aortic valve mean gradient is 27.6 mmHg. sev ratio: 0.37. No aortic regurgitation is present. Tricuspid Valve: The tricuspid valve is not well visualized, but is grossly normal. There is trace tricuspid regurgitation. The right ventricular systolic pressure is estimated to be at least 26 mmHg based on an estimated right atrial pressure of 3 mm Hg. Pulmonic Valve: The pulmonic valve is not well seen, but is grossly normal. There is trace pulmonic regurgitation. Great Vessels: The aortic root is normal size. There is aortic root sclerosis/calcification. The ascending aorta is normal in size. The aortic arch is normal in size. The pulmonary is not well visualized. The IVC is of normal diameter and collapses greater than 50% with a sniff. This suggests a low right atrial pressure of 3 mm Hg. Pericardium/ Pleura There is no pericardial effusion. MMode/2D Measurements & Calculations LVIDd: 4.3 cm LVOT diam: 2.0 cm LVIDs: 3.0 cm Ao root diam: 2.9 cm FS: 30.5 % asc Aorta Diam: 3.7 cm IVSd: 1.1 cm Ao Arch Diam (Prox Trans): 3.2 cm LVPWd: 1.1 cm LV roth. diameter/BSA (cm/m^2): 2.1 LV sys. diameter/BSA (cm/m^2): 1.4 LA A2 area: 16.1 cm2 RA long axis: 5.3 cm LA A4 area: 24.7 cm2 RA area: 12.3 cm2 LA length (vol): 6.6 cm RA vol: 24.1 ml LA vol: 51.3 ml RA : 11.7 ml/m2 LA vol index: 24.8 ml/m2 IVC diam: 1.8 cm RVD1 (basal): 3.1 cm RVD2 (mid): 2.5 cm TAPSE: 2.5 cm Doppler Measurements & Calculations Ao V2 max: 329.1 cm/sec LVOT Max Roberto Carlos: 122.1 cm/sec Ao V2 mean: 251.4 cm/sec LV V1 max P.0 mmHg Ao max P.3 mmHg LV V1 VTI: 26.9 cm Ao mean P.6 mmHg SUAD(I,D): 1.1 cm2 Ao V2 VTI: 73.2 cm SUAD(V,D): 1.1 cm2 sev ratio: 0.37 SUAD indexed to BSA (cm^2/m^2): 0.54 MV E max roberto carlos: 90.6 cm/sec TR max roberto carlos: 238.3 cm/sec MV A max roberto carlos: 136.8 cm/sec TR max P.7 mmHg MV E/A: 0.66 PA V2 max: 127.4 cm/sec Med Peak E' Roberto Carlos: 7.6 cm/sec PA V2 mean: 83.2 cm/sec E/E' med: 11.9 PA mean P.2 mmHg Lat Peak E' Roberto Carlos: 9.4 cm/sec PA pr(Accel): 25.1 mmHg E/E' lat: 9.7 E/e' average: 10.8 MV dec time: 0.15 sec SV(LVOT): 81.0 ml Reading Physician:CANDACE
== END ==
LOC: ECHO 08:06
PROVIDERS: PCP Family Medicine; Referring Provider Internal Medicine; Visit Provider Internal Medicine
DX: I35.0 Nonrheumatic aortic (valve) stenosis (principal); I34.81 Nonrheumatic mitral (valve) annulus calcification
CPT/HCPCS: 93306